=== PATIENT | male | born 1955 | race Caucasian/White ===

== ENCOUNTER 2022-04-22 03:35 | Outpatient (CLI) | payer MEDICARE, BC, SELFPAY | END 2022-04-22 03:36 | disposition home or self-care (01) | LOC: AMB 04-26 21:21 | PROVIDERS: PCP Physician Assistant Medical; Visit Provider Family Medicine | DX: R41.82 Altered mental status, unspecified (principal); E86.0 Dehydration | CPT/HCPCS: A0425; A0427 ==

== ENCOUNTER 2022-04-22 04:01 | Emergency (ER) | payer MEDICARE, BC, SELFPAY ==
[2022-04-22 04:17] VITALS: BP 139/68; PULSE 90; RESP 20; TEMP 36.6; O2SAT 95; BMI 40.9
--- NOTE | 2022-04-22 04:23 | ED_ITS ---
HPI - General Adult General Chief complaint: Syncope/Fainted Stated complaint: Syncope Time Seen by Provider: 04/22/22 04:23 History of Present Illness HPI narrative: Patient is a 67-year-old male who is sitting up watching TV at 3:30 a.m. in the morning with his when he began staring blankly. She had difficulty arousing him and called paramedics. By the time he arrives in the hospital he is awake and alert. He is a dialysis patient who has been somewhat dehydrated. He has had no fevers or chills. He has also chronic pain patient who uses oxycodone multiple times a day for hip pain. There has been no recent fall or head injury. He offers no other concerns. He was not hypoglycemic. Related Data Home Medications Medication Instructions Recorded Confirmed acetaminophen 650 mg mg PO 04/22/22 tablet,extended release aspirin 81 mg tablet,delayed mg 04/22/22 release (Adult Low Dose Aspirin) clopidogrel 75 mg tablet mg 04/22/22 famotidine 40 mg tablet mg 04/22/22 insulin glargine 100 unit/mL (3 40 unit SUBCUT DAILY 04/22/22 04/22/22 mL) subcutaneous pen (Lantus Solostar U-100 Insulin) insulin lispro 100 unit/mL SUBCUT 04/22/22 subcutaneous pen (Humalog KwikPen (U-100) Insulin) methyl salicylate 15 %-menthol 10 1 applic TOPICAL TID 04/22/22 04/22/22 % topical cream nitroglycerin 0.4 mg sublingual mg 04/22/22 tablet ondansetron HCl 4 mg tablet mg 04/22/22 oxycodone 5 mg tablet mg 04/22/22 polyethylene glycol 3350 17 g 04/22/22 gram/dose oral powder rosuvastatin 40 mg tablet mg 04/22/22 sennosides 8.6 mg-docusate sodium 1 tab-cap PO BID 04/22/22 04/22/22 50 mg tablet (Senokot-S) tamsulosin 0.4 mg capsule mg PO 04/22/22 torsemide 20 mg tablet mg 04/22/22 Allergies Allergy/AdvReac Type Severity Reaction Status Date / Time diphenhydramine Allergy Intermediate Hives Verified 04/22/22 04:28 hydromorphone Allergy Intermediate Vomiting Verified 04/22/22 04:28 hydroxyzine Allergy Intermediate Hives Verified 04/22/22 04:28 pravastatin Allergy Intermediate myalgia Verified 04/22/22 04:28 atorvastatin Allergy Mild myalgia Verified 04/22/22 04:28 ciprofloxacin Allergy Mild itching Verified 04/22/22 04:28 gabapentin Allergy Mild Anxiety Verified 04/22/22 04:28 latex Allergy Mild itching Verified 04/22/22 04:28 Sulfa (Sulfonamide Allergy Mild Rash Verified 04/22/22 04:28 Antibiotics) [facility] Medical History (Updated 04/27/22 @ 06:27 by Isauro Carlson MD) Benign non-nodular prostatic hyperplasia with lower urinary tract symptoms Bilateral hip joint arthritis Bilateral primary osteoarthritis of hip BMI 45.0-49.9, adult Central sleep apnea Chronic pain syndrome Chronic, continuous use of opioids Coronary artery disease Coronary artery disease involving [place] coronary artery of [place] heart without angina pectoris DDD (degenerative disc disease), lumbar Essential hypertension GERD (gastroesophageal reflux disease) Hemorrhage anterior chamber eye Lymphedema NSTEMI (non-ST elevated myocardial infarction) PETER (obstructive sleep apnea) Pain medication agreement broken Peripheral edema Stasis ulcer of left lower extremity Stasis ulcer of right lower extremity 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 No significant orthostatic change in his blood pressure or pulse. HEENT: Conjunctiva clear. Tympanic membranes are pearly white bilaterally. Posterior pharynx is clear without erythema or exudate. Neck is supple without adenopathy, thyromegaly, carotid bruit. Lungs: Clear to auscultation in all tucker. No wheezes, rales, rhonchi. Heart: Regular rate and rhythm without murmur. Abdomen: Soft and nontender. No guarding, rigidity, rebound. Bowel sounds are normal. No palpable masses. Extremities: No cyanosis or edema. Good distal pulses. Skin: He has some healing lower extremity wounds. Neurologic: Awake, alert, fully oriented. Neurologic exam is nonfocal. Const: Vital Signs, click to edit/add: Vital Signs - 24 hr 04/22/22 04:17 Temperature 97.9 F Pulse Rate [Left P ulse Oximeter] 90 Respiratory Rate 20 Blood Pressure [Ri ght Upper Arm] 139/68 Pulse Oximetry 95 Course Course Hospital Course: Patient was seen and examined and labs were ordered. Reevaluation(s) Reevaluation #1: Patient and his are reassured by his nearly a normal labs. He is comfortable returning home. Vital Signs Vital signs: Initial Vital Signs Temperature 97.9 F 04/22/22 04:17 Temperature Source Temporal Artery Scan 04/22/22 04:17 Pulse Rate 90 04/22/22 04:17 Pulse Rhythm 04/22/22 04:17 Respiratory Rate 20 04/22/22 04:17 Blood Pressure 139/68 04/22/22 04:17 Blood Pressure Mean 91 04/22/22 04:17 Blood Pressure Position Semi-Fowlers 04/22/22 04:17 Pulse Oximetry 95 04/22/22 04:17 Oxygen Delivery Method 04/22/22 04:17 Vital Signs Temperature 97.9 F 04/22/22 04:17 Pulse Rate 90 04/22/22 04:17 Respiratory Rate 20 04/22/22 04:17 Blood Pressure 139/68 04/22/22 04:17 Pulse Oximetry 95 04/22/22 04:17 Temperature 97.9 F 04/22/22 04:17 Pulse Rate 97 04/22/22 05:29 Respiratory Rate 16 04/22/22 05:15 Blood Pressure 107/36 L 04/22/22 05:29 Pulse Oximetry 98 04/22/22 05:15 Medical Decision Making Lab Data Labs: Lab Results 04/22/22 04/22/22 Range/Units 05:25 05:25 WBC 10.72 (4.50-11.00) K/uL RBC 3.89 L (4.30-5.90) m/uL Hgb 11.1 L (13.5-17.5) gm/dL Hct 35.8 L (37.0-53.0) % MCV 92 (80-100) fL MCH 29 (26-34) pg MCHC 31 L (32-36) gm/dL RDW Coeff of [place] 13.4 (11.5-15.5) % Plt Count 296 (140-440) K/uL Neut % (Auto) 79.0 H (42.0-72.0) % Lymph % (Auto) 8.8 L (20-44) % [place] % (Auto) 9.6 (0.0-11.0) % Eos % (Auto) 1.9 (0.0-7.0) % Baso % (Auto) 0.5 (0.0-3.0) % Neut # (Auto) 8.50 H (1.7-7.0) K/uL Lymph # (Auto) 0.90 (0.90-2.90) K/uL [place] # (Auto) 1.00 H (0.00-0.90) K/UL Eos # (Auto) 0.20 (0.00-0.50) K/uL Baso # (Auto) 0.05 (0.00-0.30) K/uL Abs Immat Gran (auto) 0.02 (0.00-0.30) K/uL Sodium 137 (135-149) mmol/L Potassium 3.8 (3.6-5.1) mmol/L Chloride 96 (96-114) mmol/L Carbon Dioxide 33 H (20-32) mmol/L BUN 33 H (7-30) mg/dL Creatinine 2.0 H (0.5-1.5) mg/dL Estimated Creat Clear 37.01 Estimated GFR 36 ml/min Glucose 174 H (60-115) mg/dL Calcium 9.0 (8.4-10.6) mg/dL Discharge Plan Discharge Clinical Impression: Syncope Patient Disposition: Home, Self-Care Condition: Improved Additional Instructions: Decreased torsemide to two pills in the morning and stop the evening dose for now. Monitor for increased leg swelling. If you are able to cut back on your oxycodone a little that may help. Make sure getting enough to drink. Follow-up in the clinic for recheck in 3-5 days. Prescriptions: No Action torsemide 20 mg tablet 0RF ondansetron HCl 4 mg tablet 0RF Label Comments: Place 1 tablet on the tongue 2 times daily if needed for N/V famotidine 40 mg tablet 0RF clopidogrel 75 mg tablet 0RF aspirin [Adult Low Dose Aspirin] 81 mg tablet,delayed release (DR/EC) 0RF Label Comments: Take 1 tablet by mouth once daily with a meal acetaminophen 650 mg tablet extended release PO 0RF Label Comments: Take 1 tablet by mouth three times a day + 2 PRN doses daily tamsulosin 0.4 mg capsule PO 0RF nitroglycerin 0.4 mg tablet, sublingual 0RF Label Comments: Place 1 tablet under the tongue every 5 minutes if needed for Chest Pain polyethylene glycol 3350 17 gram/dose powder 0RF Label Comments: MIX 1 SCOOP (17 G) IN LIQUID THEN TAKE BY MOUTH ONCE DAILY. oxycodone 5 mg tablet 0RF insulin lispro [Humalog KwikPen Insulin] 100 unit/mL insulin pen SUBCUT 0RF rosuvastatin 40 mg tablet 0RF sennosides-docusate sodium [Senokot-S] 8.6-50 mg tablet 1 tab-cap PO BID 0RF insulin glargine [Lantus Solostar U-100 Insulin] 100 unit/mL (3 mL) insulin pen 40 unit subcut DAILY 0RF methyl salicylate-menthol 15-10 % cream 1 applic topical TID 0RF Follow Up/Referrals: Nuzhat Salinas PA-C [Primary Care Provider] - Stand Alone [facility]
[2022-04-22 05:15] VITALS: PULSE 96; RESP 16; O2SAT 98
[2022-04-22 05:29] VITALS: BP 107/36; BP 119/66; BP 122/61; PULSE 93; PULSE 95; PULSE 97; PULSE 98
[2022-04-22 05:30] LABS: Basophils Absolute Auto 0.05 K/uL (0.00-0.30); Basophils Percent Auto 0.5 % (0.0-3.0); Eosinophils Percent Auto 1.9 % (0.0-7.0); Hematocrit 35.8 % (37.0-53.0); Hemoglobin* 11.1 gm/dL (13.5-17.5); Immature Granulocytes Abs Auto 0.02 K/uL (0.00-0.30); Lymphocytes Percent Auto 8.8 % (20-44); Mean Corpuscular HGB Conc 31 gm/dL (32-36); Mean Corpuscular Hemoglobin 29 pg (26-34); Mean Corpuscular Volume 92 fL (80-100); Monocytes Percent Auto 9.6 % (0.0-11.0); Platelet Count* 296 K/uL (140-440); RDW Coefficient of Variation % 13.4 % (11.5-15.5); Red Blood Count 3.89 m/uL (4.30-5.90); White Blood Count* 10.72 K/uL (4.50-11.00)
[2022-04-22 05:31] LABS: Slide Review Reflex No
[2022-04-22 05:42] LABS: Chloride* 96 mmol/L (96-114); Potassium* 3.8 mmol/L (3.6-5.1); Sodium* 137 mmol/L (135-149)
[2022-04-22 05:45] LABS: Blood Urea Nitrogen* 33 mg/dL (7-30); Carbon Dioxide* 33 mmol/L (20-32); Est. Creatinine Clearance* 37.01; Estimated Glomerular Filt Rate 36 ml/min; Glucose* 174 mg/dL (60-115)
--- NOTE | 2022-04-22 05:46 | ED.NURSE ---
Daughter at bedside
== END 2022-04-22 07:14 | disposition home or self-care (01) ==
PROVIDERS: Emergency Provider Family Medicine; PCP Physician Assistant Medical
DX: R55 Syncope and collapse (principal)
CPT/HCPCS: 36415; 80048; 85025; 99282; 99283

== ENCOUNTER 2022-10-26 14:49 | Emergency (ER) | payer MEDICARE, BC, SELFPAY ==
[2022-10-26 14:58] VITALS: BP 148/79; PULSE 83; RESP 16; TEMP 36.4; O2SAT 99; BMI 42.3
--- NOTE | 2022-10-26 15:24 | ED_ITS ---
HPI - General Adult General Time Seen by Provider: 15:24 Date Seen: 10/26/22 Chief complaint: Extremity Pain/Injury, Lower Stated complaint: L leg injury, bleeding on blood thinners Time Seen by Provider: 10/26/22 14:50 Source: patient Mode of arrival: ambulatory Limitations: no limitations History of Present Illness HPI narrative: Patient is a 67 year white male, he has history chronic stasis changes diabetes. He cut his left anterior boyer on the door. He thinks is up-to-date on tetanus we will confirm that. He has had a good amount of bleeding he is on Plavix. No other complaints. Related Data Home Medications Medication Instructions Recorded Confirmed aspirin 81 mg tablet,delayed mg 04/22/22 release (Adult Low Dose Aspirin) clopidogrel 75 mg tablet mg 04/22/22 famotidine 40 mg tablet mg 04/22/22 insulin glargine 100 unit/mL (3 40 unit subcut DAILY 04/22/22 04/22/22 mL) subcutaneous pen (Lantus Solostar U-100 Insulin) insulin lispro 100 unit/mL subcut 04/22/22 subcutaneous pen (Humalog KwikPen (U-100) Insulin) methyl salicylate 15 %-menthol 10 1 applic topical TID 04/22/22 04/22/22 % topical cream nitroglycerin 0.4 mg sublingual mg 04/22/22 tablet ondansetron HCl 4 mg tablet mg 04/22/22 oxycodone 5 mg tablet mg 04/22/22 polyethylene glycol 3350 17 g 04/22/22 gram/dose oral powder rosuvastatin 40 mg tablet mg 04/22/22 sennosides 8.6 mg-docusate sodium 1 tab-cap PO BID 04/22/22 04/22/22 50 mg tablet (Senokot-S) tamsulosin 0.4 mg capsule mg PO 04/22/22 torsemide 20 mg tablet mg 04/22/22 Allergies Allergy/AdvReac Type Severity Reaction Status Date / Time diphenhydramine Allergy Intermediate Hives Verified 04/22/22 04:28 hydromorphone Allergy Intermediate Vomiting Verified 04/22/22 04:28 hydroxyzine Allergy Intermediate Hives Verified 04/22/22 04:28 pravastatin Allergy Intermediate myalgia Verified 04/22/22 04:28 atorvastatin Allergy Mild myalgia Verified 04/22/22 04:28 ciprofloxacin Allergy Mild itching Verified 04/22/22 04:28 gabapentin Allergy Mild Anxiety Verified 04/22/22 04:28 latex Allergy Mild itching Verified 04/22/22 04:28 Sulfa (Sulfonamide Allergy Mild Rash Verified 04/22/22 04:28 Antibiotics) Review of Systems Status of ROS: Reports: 6 or more systems reviewed and unremarkable except as noted in History and below [facility] Medical History Benign non-nodular prostatic hyperplasia with lower urinary tract symptoms Bilateral hip joint arthritis Bilateral primary osteoarthritis of hip BMI 45.0-49.9, adult Central sleep apnea Chronic pain syndrome Chronic, continuous use of opioids Coronary artery disease Coronary artery disease involving [place] coronary artery of [place] heart without angina pectoris DDD (degenerative disc disease), lumbar Essential hypertension GERD (gastroesophageal reflux disease) Hemorrhage anterior chamber eye Lymphedema NSTEMI (non-ST elevated myocardial infarction) PETER (obstructive sleep apnea) Pain medication agreement broken Peripheral edema Stasis ulcer of left lower extremity Stasis ulcer of right lower extremity 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, with long-term current use of insulin Vitamin D deficiency Surgical History Hx of coronary artery bypass graft Social History Smoking Status: Unknown if ever smoked Do you use any of these nicotine containing products: None Second hand tobacco smoke exposure: No How often do you have a drink containing alcohol: monthly or less How often do you have six or more drinks on one occasion: Never AUDIT-C Alcohol total score: 1 Non-prescribed substance use: denies use service: No Exam Narrative: Exam Narrative: Objective: Vital signs show slightly elevated blood pressure His left leg shows chronic stasis changes fairly friable skin and good amount of edema there is a 3 cm cut vertically through the anterior boyer does not appear deep but does appear to gape. After sterile scrub with Shur-Clens the wound was injected with 1% xylocaine without epinephrine and closed with 3-0 simple opted Ethilon sutures good skin edge approximation good hemostasis patient did have a slight amount of oozing after repair even went through that stitch base of the stitches but will put a little pressure on that and observe for period of time Telfa, gauze, a slight soft wrap check on his tetanus status Const: Vital Signs, click to edit/add: Vital Signs - 24 hr 10/26/22 14:58 Temperature 97.6 F Pulse Rate [Right Pulse Oximeter] 83 Respiratory Rate 16 Blood Pressure [Ri ght Upper Arm] 148/79 H Pulse Oximetry 99 Oxygen Delivery Me thod Room Air Course Vital Signs Vital signs: Initial Vital Signs Temperature 97.6 F 10/26/22 14:58 Temperature Source Temporal Artery Scan 10/26/22 14:58 Pulse Rate 83 10/26/22 14:58 Pulse Rhythm 10/26/22 14:58 Respiratory Rate 16 10/26/22 14:58 Blood Pressure 148/79 H 10/26/22 14:58 Blood Pressure Mean 102 10/26/22 14:58 Blood Pressure Position Sitting 10/26/22 14:58 Pulse Oximetry 99 10/26/22 14:58 Oxygen Delivery Method 10/26/22 14:58 Vital Signs Temperature 97.6 F 10/26/22 14:58 Pulse Rate 83 10/26/22 14:58 Respiratory Rate 16 10/26/22 14:58 Blood Pressure 148/79 H 10/26/22 14:58 Pulse Oximetry 99 10/26/22 14:58 Oxygen Delivery Method 10/26/22 14:58 Temperature 97.6 F 10/26/22 14:58 Pulse Rate 83 10/26/22 14:58 Respiratory Rate 16 10/26/22 14:58 Blood Pressure 148/79 H 10/26/22 14:58 Pulse Oximetry 99 10/26/22 14:58 Oxygen Delivery Method 10/26/22 14:58 Medical Decision Making [facility] Narrative Medical decision making narrative: Procedure: After sterile scrub 1% xylocaine without epinephrine used for a injection of the wound and it was closed with 3-0 Ethilon sutures. Suture removal in 7 days, will check on tetanus status. Elevation, light activity, keep dry for 24 hours. Discharge Plan Discharge Clinical Impression: Laceration Patient Disposition: Home w/ Parent or Adult Condition: Improved Additional Instructions: Suture removal in 7 days, keep dressing on and keep dry for 24 hours. Watch for redness infection, updated tetanus given. Return if problems or concerns. Otherwise suture removal in 7 days in the clinic. Activity Level: Light activity Discharge Diet: Diabetic Prescriptions: No Action torsemide 20 mg tablet ondansetron HCl 4 mg tablet Label Comments: Place 1 tablet on the tongue 2 times daily if needed for N/V famotidine 40 mg tablet clopidogrel 75 mg tablet aspirin [Adult Low Dose Aspirin] 81 mg tablet,delayed release (DR/EC) Label Comments: Take 1 tablet by mouth once daily with a meal tamsulosin 0.4 mg capsule PO nitroglycerin 0.4 mg tablet, sublingual Label Comments: Place 1 tablet under the tongue every 5 minutes if needed for Chest Pain polyethylene glycol 3350 17 gram/dose powder Label Comments: MIX 1 SCOOP (17 G) IN LIQUID THEN TAKE BY MOUTH ONCE DAILY. oxycodone 5 mg tablet insulin lispro [Humalog KwikPen Insulin] 100 unit/mL insulin pen SUBCUT rosuvastatin 40 mg tablet sennosides-docusate sodium [Senokot-S] 8.6-50 mg tablet 1 tab-cap PO BID insulin glargine [Lantus Solostar U-100 Insulin] 100 unit/mL (3 mL) insulin pen 40 unit subcut DAILY methyl salicylate-menthol 15-10 % cream 1 applic topical TID Follow Up/Referrals: Nuzhat Salinas PAMacieC [Primary Care Provider] - Stand Alone Forms: [employer] Info Instructions Discharge Comment: took pt to his daughter's car with present. helped pt transfer into his daughter's car with ease.
[2022-10-26] MEDS: TETANUS/DIPHTH/PERTUSSIS 0.5 ML SYRINGE IM (15:43)
--- OUTSIDE RECORDS SUMMARY | 2022-10-26 15:45 | XMS_ITS | Continuity of Care Document ---
:1955 Author Organization [facility] Address [address] [place] [address] Phone Care Team Providers Name Role Phone Shelton Rosales Unavailable Unavailable Allergies, Adverse Reactions, Alerts Substance Reaction Status Criticality pregabalin Active No Information gabapentin Active No Information latex Active No Information Medications Medication Instructions Dosage Effective Dates Status Comment s (start - stop) Xtampza ER 9 mg take 1 capsule by 9 MG - Active may fill today capsule sprinkle oral route every 12 hours oxycodone 5 mg Take one tablet - Active ma y fill today tablet twice daily as needed for chronic pain; max 2/day Vazalore 81 mg take 1 capsule by 81 MG - Active capsule oral route every day Plavix 75 mg take 1 tablet by 75 MG - Active tablet oral route every day Pepcid 20 mg take 1 tablet by 20 MG - Active tablet oral route 2 times every day torsemide 20 mg take 1 tablet by 20 MG - Active tablet oral route every day Xtampza ER 9 mg take 1 capsule by 9 MG - No Longer may fill today capsule sprinkle oral route every 12 Active hours oxycodone 5 mg Take one tablet - No Longer ma y fill today tablet twice daily as Active needed for chronic pain; max 2/day Procedures Procedure Date Foll-up eval q3mo opiod tx OFFICE VISIT, EST TELEMEDICINE Foll-up eval q3mo opiod tx OFFICE VISIT, EST TELEMEDICINE Drug Urine Toxology With Chromatography Drug test def 8-14 classes Foll-up eval q3mo opiod tx OFFICE/OUTPATIENT VISIT, EST Foll-up eval q3mo opiod tx OFFICE VISIT, EST TELEMEDICINE Drug test def 8-14 classes Drug Urine Toxology With Chromatography Foll-up eval q3mo opiod tx PT-FOCUSED HLTH RISK ASSMT OFFICE/OUTPATIENT VISIT, NEW Advance Directives Directive Yes / No Effective Date File Name No Information Encounters Encounter Practice Location Reason(s) Diagnoses Date Provider Provide rs Description For Visit Copied on Encounter OFFICE VISIT, [facility] bilateral Chronic pain Page Referring [facility] hip pain syndromePressure [place]. Pr ovider: TELEMEDICINE Pain [place] (chief ulcer of right [address] [facility], complaint) heel, unspecified [address] , [address] stageBilateral [address] [place], [place], primary 100, [facility], osteoarthritis of [place] , [place] , [place], [place], [address] . [id number] primary [id number] tel:28 , [place] osteoarthritis, , [place]. [id number] tel: left kneePrimary tel: [phone] osteoarthritis, [phone] right shoulderPrimary osteoarthritis, left shoulderLong term (current) use of opiate analgesic OFFICE VISIT, [facility] bilateral Chronic pain Page Referring [facility] hip pain syndromePressure [place]. Pr ovider: TELEMEDICINE Pain [place] (chief ulcer of right 2 [address] [facility], complaint) heel, unspecified [address] , [address] stageBilateral [address], [place], primary 100, [place], osteoarthritis of [place] , [place] , [place], [place], [address] . [id number] primary [id number] tel:28 , [place] osteoarthritis, , [place]. [id number] tel: left kneePrimary tel:+ [phone] osteoarthritis, [phone] right shoulderPrimary osteoarthritis, left shoulderLong term (current) use of opiate analgesic [facility] No Information Page Refer [facility] 0- [place]. Provider: Pain [place] [address] [facility], [address] [place], [address], [address], [place], [place] [address] [place], [place], [place], [place] [id number], , [place] , [place]. [place], tel: tel:+ [place], [phone]. [phone] tel: [phone] OFFICE/OUTPAT [facility] bilateral Chronic pain Page Referring IENT VISIT, [facility] hip pain syndromePressure 0 [place] . Provider: EST [facility] [place] (chief ulcer of right [address] [facility], complaint) heel, unspecified [address] [place], [address] stageBilateral [address], primary 100, [place], osteoarthritis of [place] [address] [place], hipUnilateral [place], [place], [place] [phone] primary [id number], , [place] osteoarthritis, , [place]. [facility], tel: [place] kneePrimary tel: [place], [phone]. [phone] osteoarthritis, [phone] tel: right [phone] shoulderPrimary osteoarthritis, left shoulderLong term (current) use of opiate analgesicEncounte r for therapeutic drug level monitoring OFFICE VISIT, [facility] bilateral Chronic pain Jul- Van Referring [facility] hip pain syndromePressure [place] P rovider: TELEMEDICINE Pain [place] (chief ulcer of right [address] [facility], complaint) heel, unspecified [address] , [address], [place], [place], primary [place], osteoarthritis of [place], [place], , [place], [place], hipUnilateral [id number]. [id number] primary , [place]. tel:[phone] , [place] osteoarthritis, tel:+ [phone] tel:+ left kneePrimary [phone] osteoarthritis, right shoulderPrimary osteoarthritis, left shoulderLong term (current) use of opiate analgesic [facility] No Information Sep-2 Page Refer ring [facility] [place]. Provider: [facility] [place] [address] [facility], [address] [place], [address], 100, [place], [place] [address] [place], e, [place], [place] [id number], , [place] , [place]. [place], tel:+ tel:+ [place], [phone]. [phone] tel:+ [phone] OFFICE/OUTPAT [facility] bilateral Chronic pain Sep-2 Page Referring IENT VISIT, [facility] hip pain syndromeBilateral Vlad garcia Provider: NEW Pain [place] (chief primary [address] [facility], complaint) osteoarthritis of [address] Curtis [place], [address] [place] hipEncounter for [address] [place], screening for 100, [place], other [place] [address] [place], disorderEncounter e, [place], Hemanth son [phone] for therapeutic [id number], , [place] drug level , [place]. [place], tel:+ monitoringPrimary tel:+ [place] , [phone]. [phone] osteoarthritis, [phone] tel:+ left [phone] shoulderPrimary osteoarthritis, right shoulderLong term (current) use of opiate analgesicPressure ulcer of right heel, unspecified stageUnilateral primary osteoarthritis, left knee Family History Family Member Type Diagnosis Age At Onset No Information Payers Payer name Insurance type Covered constitution party ID Authorization(s ) [facility] MedicareComplete Replacement 16 [id number] [employer] Medicaid BL [id number] Social History Type Description Quantity Date Captured Comments Alcohol Use Details Unknown Caffeine Use Details Unknown Tobacco Use Status No Information Smoking Status No Information Sex Male Chief Complaint And Reason For Visit From encounter dated '10/06/2022 10:35'. bilateral hip pain (chief complaint). Description: Severity level is moderate. Duration chronic. The problem is worsening. It occurs constantly. Location of pain is bilateral left knee. Pertinent negatives include fever. Reason For Referral Reason For Referral No Information Plan Of Treatment Date Type Action Status Goal Height. Due on due Goal Update Social History. Due on due Goal Lipid panel. Due on due Goal Medication Reconciliation. Due o n due Goal AST (SGOT). Due on d ue Goal Creatinine. Due on d ue Goal OARS. Due on due Goal STRATEGIC ACCOUNT EXECUTIVE Scanned. Due on due Goal ALT (SGPT). Due on d ue Goal Zoster vaccine (1st). Due on Oct due Goal PHQ-9. Due on due Goal Review Allergy List. Due on due Goal FIT. Due on due Goal FIT-DNA. Due on due Goal Hepatitis C screening. Due on due Goal Tobacco Use. Due on due Goal CT-Colonography. Due on 023 due Goal Weight. Due on due Goal Unhealthy drug use screening. Du e on due Goal Order Annual PT. Due on 023 due Goal CERTIFIED ORTHOTIST PRACTICE MANAGER Paperwork. Due on due Goal UDT. Due on due Goal Medication Reconciliation. Due o n due Goal Update Social History. Due on due Goal Lipid panel. Due on due Goal Review Allergy List. Due on due Goal Unhealthy drug use screening. Du e on due Goal CT-Colonography. Due on due Goal Tobacco Use. Due on due Goal Zoster vaccine (1st). Due on Sep due Goal FIT. Due on due Goal PHQ-9. Due on due Goal Hepatitis C screening. Due on due Goal Weight. Due on due Goal Height. Due on due Goal FIT-DNA. Due on due Goal ALT (SGPT). Due on d ue Goal Creatinine. Due on d ue Goal OARS. Due on due Goal AST (SGOT). Due on d ue Goal STRATEGIC ACCOUNT EXECUTIVE Scanned. Due on due Goal Order Annual PT. Due on due Goal CERTIFIED ORTHOTIST PRACTICE MANAGER Paperwork. Due on due Goal UDT. Due on due Goal AST (SGOT). Due on d ue Goal FIT. Due on due Goal Order Annual PT. Due on due Goal OARS. Due on due Goal ALT (SGPT). Due on d ue Goal CERTIFIED ORTHOTIST PRACTICE MANAGER Paperwork. Due on due Goal STRATEGIC ACCOUNT EXECUTIVE Scanned. Due on due Goal UDT. Due on due Goal Creatinine. Due on d ue Goal Update Social History. Due on No due Goal Review Allergy List. Due on due Goal FIT-DNA. Due on due Goal Height. Due on due Goal PHQ-9. Due on due Goal Medication Reconciliation. Due o n due Goal Tobacco Use. Due on due Goal CT-Colonography. Due on due Goal Lipid panel. Due on due Goal Zoster vaccine (1st). Due on Aug due Goal Weight. Due on due Goal Hepatitis C screening. Due on No due Goal Unhealthy drug use screening. Du e on due Goal CT-Colonography. Due on due Goal Review Allergy List. Due on due Goal Unhealthy drug use screening. Du e on due Goal Tobacco Use. Due on due Goal Hepatitis C screening. Due on Oc due Goal Medication Reconciliation. Due o n due Goal PHQ-9. Due on due Goal Height. Due on due Goal Weight. Due on due Goal Zoster vaccine (1st). Due on Jul due Goal FIT-DNA. Due on due Goal FIT. Due on due Goal Update Social History. Due on Oc due Goal Lipid panel. Due on due Goal Order Annual PT. Due on 022 due Goal ALT (SGPT). Due on d ue Goal AST (SGOT). Due on d ue Goal Creatinine. Due on d ue Goal OARS. Due on due Goal CERTIFIED ORTHOTIST PRACTICE MANAGER Paperwork. Due on due Goal UDT. Due on due Goal STRATEGIC ACCOUNT EXECUTIVE Scanned. Due on due Goal PHQ-9. Due on due Goal Order Annual PT. Due on 022 due Goal Creatinine. Due on d ue Goal UDT. Due on due Goal STRATEGIC ACCOUNT EXECUTIVE Scanned. Due on due Goal CERTIFIED ORTHOTIST PRACTICE MANAGER Paperwork. Due on due Goal OARS. Due on due Goal AST (SGOT). Due on d ue Goal ALT (SGPT). Due on d ue Goal Weight. Due on due Goal Medication Reconciliation. Due o n due Goal Lipid panel. Due on due Goal Review Allergy List. Due on due Goal FIT-DNA. Due on due Goal CT-Colonography. Due on due Goal Height. Due on due Goal Zoster vaccine (). Due on Jun due Goal Unhealthy drug use screening. Du e on due Goal Tobacco Use. Due on due Goal FIT. Due on due Goal Update Social History. Due on due Goal Hepatitis C screening. Due on due Goal Weight. Due on due Goal Medication Reconciliation. Due o n due Goal Lipid panel. Due on due Goal Review Allergy List. Due on due Goal FIT-DNA. Due on due Goal CT-Colonography. Due on due Goal Height. Due on due Goal Zoster vaccine (). Due on Jun due Goal Unhealthy drug use screening. Du e on due Goal Tobacco Use. Due on due Goal FIT. Due on due Goal Update Social History. Due on Se due Goal Hepatitis C screening. Due on Se due Goal PHQ-9. Due on due Appointment Srinivasa Womack BOOKED History Of Present Illness Encounter Date Complaint History Of Present I llness bilateral hip pain Severity level is mo derate. Duration chronic. The problem is worsening . It occurs constantly. Location of pain is bilateral left knee. Pertinent negatives include fe paulina. Comments: Andres pacheco sents for a virtual follow up and medication refil l. Patient c/o chronic bilateral hip pain. Pain has been worse since last visit. Notes he has had increased pain in his left knee and left hip.Sc heduled for left BRAND injection on 10/08/[address] Pako trammell. Notes he is concerned with the icy roads and in quires about rescheduling it for next week. He is looking forward to the procedure. Medicatio n provides 50% relief and allows for increased functionality per patient intake. Denies side effects from current medication regimen. No other co ncerns today. bilateral hip pain Severity level is mo derate. Duration chronic. The problem is showing n o change. It occurs constantly. Location of pain is bilateral. Comments: Andres pacheco sents for a virtual follow up and medication refil l. Patient c/o chronic bilateral hip pain. Pain has been stable since last visit. Left hip join t injection ordered on 08/13/2022. He would like to schedule following interventions for hi s left knee. Left hyaluronic acid injection sched uled on 10/08/2022. He is looking forward to t he procedure. Medication provides 25% relief and allows for increased functionality per pa tient intake. Denies side effects from current medication regimen. No other concerns today. bilateral hip pain Severity level is mo derate. Duration chronic. The problem is showing n o change. It occurs constantly. Location of pain is bilateral. The client describes the pain as an ache and stabbing. Symptom is aggravated by liftin g weight, standing, walking, movement and stairs. Relieving factors include ice and rest. Comments: Andres pacheco sents for a follow up and medications refill. Patient c/o BL hip pain and left knee pain r/t O A. Pain has been stable since he was last seen. Re ports previous cortisone injections have prov ided a week of relief.Xtampza has been providing m ore consistent relief than oxycodone. Has been taking about #1-2 Oxycodone per day to supplement. R eports current medication regimen provides 30% pain relief. Denies side effects. No other co ncerns today. Comments: Andres junior sents for a follow up after his initial consult and medications refill. Patient c/o BL hip pain and left knee pain r/t OA. Pain has been stable since he was last seen.Xtampza has been providing more consi stent relief than oxycodone. Has been taking abou t #1-2 Oxycodone per day to supplement. Reports current medication regimen provides 30% pain re lief. Denies side effects. No other concerns today . bilateral hip pain Severity level is mo derate. Duration chronic. The problem is showing n o change. Location of pain is bilateral. Pertinent negatives include fever. Comments: Srinivasa is a 67 y/o male who presents in-clinic today for initial consultation in the setting of chronic B L hips (L>R) and L knee pain. He is accompanied by his daughter today who also contributes to his d iscussion of care. Referred by POOJA Moore from [facility]. Shares the pain gradually began 10 years ago. He states pain is aggravated with g eneral movement and relieved with medications and rest. He also reports an ongoing ulcer presen t at the back of his R heel and states he has establ ished care with a wound doctor to treat the issue. Since he is diabetic, the wound is taking time to fu lly heal. Pain averages 10/10 this month. Complete d PT at [facility] with minimal relief. Have tried cortisone injections for the BL hips. Was adv ised against pursuing additional injection s for the hips as there is a possibly it might di ssolve the joints and cause him further pain. He not es the last time he received an injection, it was ex tremely painful. Believes the needle might have hi t the bones in his hips. Also notes the injections causes his blood pressure Currently managed on Oxycodone 5mg with moderate benefit. He states h esau is able to feel the effects of the medications a bout an hour after taking it, which makes his pain manageable, but he finds it wears off too quickl y. Willing to try a longer acting medication. P faith is interested in medication managemen t from [facility]. No other concerns today. bilateral hip pain Severity level is se janel. Duration chronic. The problem is worsening . It occurs constantly. Location of pain is bilateral knees. The client describes the pain a s dull and sharp. Symptom is aggravated by active movement, climbing stairs, descending stairs, l ifting weight, standing, changing positions, walking, twisting, running and housework. Relieving factors include rest and medications. Pertine nt negatives include fever. Functional Status Date Functional Assessment No Information Instructions Date Instruction Additional Informati on No Information Assessments Type Assessment Date assessment Chronic pain syndrome impression Srinivasa is a 67 y/o male who presents with chronic BL hips (L>R) and BL knee pain. Stable this month. Has completed PT at [facility] with minimal relief assessment Pressure ulcer of right heel, unspecifie d stage impression Presence of pressure ulcer at the back o f the R heel, about the size of a quarter currently.Patient has established care with wound doctor in order to treat the issue. As he is diabetic, the wound is taking time to fu lly heal assessment Bilateral primary osteoarthritis of hip impression Pain in BL hips (L>R), worse today. Will eventually need hip replacement, but would like to hold off as long as possible. Established with Dr. Maldonado.Has received se veral cortisone injections with benefit and would like t o repeat assessment Unilateral primary osteoarthritis, left knee impression Pain in L knee, worse today.Left Knee XR on 06/25/22:1. Mild tricompartmental osteoarthritic changes of the left knee.2. No acute bony or soft tissue abnormalities are noted assessment Primary osteoarthritis, right shoulder J impression Pain in BL shoulders. Stable.Have receiv ed GH Injections for BL shoulders at [facility] with signi ficant relief assessment Primary osteoarthritis, left shoulder Ja impression Pain in BL shoulders. Stable.Have receiv ed GH Injections for BL shoulders at [facility] with signi ficant relief assessment USP (current) use of opiate analge sic impression The medication relieves at least 80% of the pain, does not cause significant side effects, and incr eases the patient's daily activity level. MME is 45mg/day. P faith has been managing medications appropriately, and is not confused or oversedated during our office visit. UDT results reviewed and are consistent with current medication r egimen. Appropriate to continue with opioid therapy Mental Status Date Cognitive Assessment Normal Orientation Patient Care Teams Name Effective Dates (start - stop) Status M embbia No Information
== END 2022-10-26 16:10 | disposition home or self-care (01) ==
LOC: ED 15:43
PROVIDERS: Emergency Provider Family Medicine; PCP Physician Assistant Medical
DX: S81.812A Laceration without foreign body, left lower leg, initial encounter (principal); W26.9XXA Contact with unspecified sharp object(s), initial encounter
CPT/HCPCS: 12002; 90471; 90715; 99283; 99284

== ENCOUNTER 2023-08-11 20:04 | Outpatient (CLI) | payer MEDICARE, BC, SELFPAY ==
--- OUTSIDE RECORDS SUMMARY | 2023-08-12 07:27 | XMS_ITS | Continuity of Care Document ---
Author Name Unknown Organization [facility] Address [address] [place] [address] Phone Care Team Providers Care Customer Services Manager Name Role Phone Shelton Rosales Unavailable Unavailable Allergies, Adverse Reactions, Alerts Substance Reaction Status Criticality ciprofloxacin Itching Active No Information atorvastatin Active No Information Sulfa (Sulfonamide Antibiotics) Rash Active No Information pravastatin Active No Information hydroxyzine HivesHivesHives Active No Informati on hydromorphone Active No Information diphenhydramine HivesHivesHives Active No Inform ation pregabalin Active No Information gabapentin Active No Information latex Active No Information Medications Medication Instructions Dosage Effective Dates (start - stop) Status Comments Xtampza ER 9 mg capsule sprinkle take 1 capsule by oral route every 12 hours for chronic pain - Active oxycodone 5 mg tablet take 1 tablet three times daily as needed for chronic pain max 3/day - Active May fill today insulin lispro (U-100) 100 unit/mL subcutaneous pen inject by subcutaneous route per prescriber's instructions. Insulin dosing requires individualization . 0.00 - Active LANTUS (unknown strength) Not Available - Active nitroglycerin 0.4 mg/hr transdermal 24 hour patch apply 1 patch by transdermal route every day remove at night for 10-12 hours 1.00 patch - Active Crestor 40 mg tablet take 1 tablet by oral route every bedtime 40 MG - Active Vazalore 81 mg capsule take 1 capsule by oral route every day 81 MG - Active Plavix 75 mg tablet take 1 tablet by oral route every day 75 MG - Active Pepcid 20 mg tablet take 1 tablet by oral route 2 times every day 20 MG - Active torsemide 20 mg tablet take 1 tablet by oral route every day 20 MG - Active oxycodone 5 mg tablet take 1 tablet three times daily as needed for chronic pain max 3/day - No Longer Active May fill today Xtampza ER 9 mg capsule sprinkle take 1 capsule by oral route every 12 hours for chronic pain - No Longer Active Procedures Procedure Date OFFICE/OUTPATIENT VISIT, EST Drug Urine Toxology With Chromatography Drug test def 8-14 classes LT SINGLE-DRAIN/INJECT, JOINT/BURSA NEEDLE LOCALIZATION BY Flouroscopy OFFICE VISIT, EST TELEMEDICINE OFFICE VISIT, EST TELEMEDICINE Drug Urine Toxology With Chromatography Drug test def 8-14 classes OFFICE/OUTPATIENT VISIT, EST LT SINGLE-DRAIN/INJECT, JOINT/BURSA NEEDLE LOCALIZATION BY Flouroscopy OFFICE VISIT, EST TELEMEDICINE OFFICE VISIT, EST TELEMEDICINE Foll-up eval q3mo opiod tx OFFICE/OUTPATIENT VISIT, EST Drug Urine Toxology With Chromatography Drug test def 8-14 classes LT Major Joint Or Bursa Inj With Ultraso und Synvisc LT Major Joint Or Bursa Inj With Ultraso und Synvisc Foll-up eval q3mo opiod tx OFFICE VISIT, [...] Date File Name No Information Encounters Encounter Description Practice Location Reason(s) For Visit Diagnoses Date Provider Providers Copied on Encounter OFFICE/OUTPAT IENT VISIT, EST [facility], [address] [place] [address], [id number] , [place] tel:[phone] [facility] bilateral hip pain (chief complaint) Chronic pain syndromePressure ulcer of right heel, unspecified stageBilateral primary osteoarthritis of hipUnilateral primary osteoarthritis, left kneePrimary osteoarthritis, right shoulderPrimary osteoarthritis, left shoulderLong term (current) use of opiate analgesicEncount er for therapeutic drug level monitoring 3 Kaylee Peoples. [address] [place] [address] 11 [facility] [address], [place], [place], [id number] , [place]. tel:[phone] Referring Provider: Tomasz Garcia [facility] [address] [place] [address], [address]. tel:[phone] [facility], [address] [place], [place], [id number] , [place] tel:[phone] [facility] No Information 3 Kaylee Peoples. [address] [place] [address] [address], [place], [id number] , [place]. tel: [phone] [facility], [address] [place] [address] [place], [id number] , [place] tel: [phone] [facility] Bilateral primary osteoarthritis of hip Jul-2 3 Mikael Tolbert. [address] [place] [address], [id number] , [place]. tel: [phone] Referring Provider: Tomasz Youssef, [address] [place] [address], [id number]. tel:[phone] OFFICE VISIT, EST TELEMEDICINE [facility], [address] [place] [address], [id number] , [place] tel: [phone] [facility] [place] bilateral hip pain (chief complaint) Chronic pain syndromePressure ulcer of right heel, unspecified stageBilateral primary osteoarthritis of hipUnilateral primary osteoarthritis, left kneePrimary osteoarthritis, right shoulderPrimary osteoarthritis, left shoulderLong term (current) use of opiate analgesic Jul-0 3 Kaylee Peoples. [address] [place] [address] [address], [place], [id number] , [place]. tel: [phone] OFFICE VISIT, EST TELEMEDICINE [facility], [address] [place] [address] [place], [id number] , [place] tel: [phone] [facility] [place] bilateral hip pain (chief complaint) Chronic pain syndromePressure ulcer of right heel, unspecified stageBilateral primary osteoarthritis of hipUnilateral primary osteoarthritis, left kneePrimary osteoarthritis, right shoulderPrimary osteoarthritis, left shoulderLong term (current) use of opiate analgesic Sep-0 3 Page Shelton. [address] [place] [address] [address], [place], [id number] , [place]. tel: [phone] [facility], [address] [place] [address] [place], [id number] , [place] tel: [phone] [facility] [place] No Information May-0 3 Kaylee Peoples. [address] [place] [address] [address], [place], [id number] , [place]. [phone] Referring Provider: To [place] [address] [facility], [place], [address]. tel:[phone] OFFICE/OUTPAT IENT VISIT, [facility], [address] [place] [address], [id number] , [place] tel:[phone] [facility] bilateral hip pain (chief complaint) Chronic pain syndromePressure ulcer of right heel, unspecified stageBilateral primary osteoarthritis of hipUnilateral primary osteoarthritis, left kneePrimary osteoarthritis, right shoulderPrimary osteoarthritis, left shoulderLong term (current) use of opiate analgesicEncount er for therapeutic drug level monitoring 3 Kaylee Peoples. [address] [facility] [address], [place], [id number] , [place]. tel:[phone] Referring Provider: To [place] [address] [place], [address]. tel:[phone] [facility], [address] [place] [address], [id number] , [place] [phone] [facility] [place] Bilateral primary osteoarthritis of hip 3 Mikael Tolbert. [address] [place], [place], [id number] , [place]. tel:[phone] Referring Provider: To [place] [address] [place], [address]. tel:[phone] OFFICE VISIT, [facility] TELEMEDICINE [facility], [address] [place] [address], [id number] , [place] tel:[phone] [facility] bilateral hip pain (chief complaint) Chronic pain syndromePressure ulcer of right heel, unspecified stageBilateral primary osteoarthritis of hipUnilateral primary osteoarthritis, left kneePrimary osteoarthritis, right shoulderPrimary osteoarthritis, left shoulderLong term (current) use of opiate analgesic 3 Kaylee Peoples. [address] [facility] [address], [place], [id number] , [place]. tel:[phone] Referring Provider: Tomasz Benjamin, [address] [place] [address], [id number]. tel:[phone] OFFICE VISIT, [facility] TELEMEDICINE [facility], [address] [place] [address], [id number] , [place] tel:[phone] [facility] bilateral hip pain (chief complaint) Chronic pain syndromePressure ulcer of right heel, unspecified stageBilateral primary osteoarthritis of hipUnilateral primary osteoarthritis, left kneePrimary osteoarthritis, right shoulderPrimary osteoarthritis, left shoulderLong term (current) use of opiate analgesic Sony-0 3 Page Shelton. [address] [place] [address] [address], [place], [place], [id number] , [place]. tel:[phone] OFFICE/OUTPAT IENT VISIT, [facility], [address] [place] [address], [id number] , [place] tel:[phone] [facility] bilateral hip pain (chief complaint) Chronic pain syndromePressure ulcer of right heel, unspecified stageBilateral primary osteoarthritis of hipUnilateral primary osteoarthritis, left kneePrimary osteoarthritis, right shoulderPrimary osteoarthritis, left shoulderLong term (current) use of opiate analgesic February-0 3 Page Shelton. [address] [place] [address] [address], [place], [place], [id number] , [place]. tel:[phone] Referring Provider: To [place] [address] [place], [address]. tel:[phone] [place] [address] [facility], [address] [place] [address], [id number] , [place] tel:[phone] [facility] No Information 0 3 Kaylee Peoples. [address] [place] [address] [address], [place], [place], [id number] , [place]. tel:[phone] Referring Provider: To [place] [place], [address]. tel:[phone] [facility], [address] [place] [address], [id number] , [place] tel: [phone] [facility] [place] Unilateral primary osteoarthritis, left knee Apr-1 7- 3 Mikael Tolbert. [address] [facility] [place], [place], [id number] , [place]. tel: [phone] Referring Provider: To [place] [address] , [place], [address]. [phone] [facility], [address] [place] [address] [place], [id number] , [place] tel: [phone] [facility] Unilateral primary osteoarthritis, left knee Apr-1 0-202 3 Mikael Tolbert. [address] [place], [place], [id number] , [place]. tel: [phone] Referring Provider: To [place]te [place] [address], [place], [address]. [phone] OFFICE VISIT, EST TELEMEDICINE [facility], [address] [place] [address] [place], [id number] , [place] tel: [phone] [facility] [place] bilateral hip pain (chief complaint) Chronic pain syndromePressure ulcer of right heel, unspecified stageBilateral primary osteoarthritis of hipUnilateral primary osteoarthritis, left kneePrimary osteoarthritis, right shoulderPrimary osteoarthritis, left shoulderLong term (current) use of opiate analgesic Apr-0 4-202 3 Aleksandr Sadie. [address] [facility] [address], [place], [id number] , [place]. tel: [phone] OFFICE VISIT, EST TELEMEDICINE [facility], [address] [place] [address] [place], [id number] , [place] tel: [phone] [facility] [place] bilateral hip pain (chief complaint) Chronic pain syndromePressure ulcer of right heel, unspecified stageBilateral primary osteoarthritis of hipUnilateral primary osteoarthritis, left kneePrimary osteoarthritis, right shoulderPrimary osteoarthritis, left shoulderLong term (current) use of opiate analgesic Mar-0 9-202 3 Aleksandr Sadie. [address] [facility] [address], [place], [id number] , [place]. tel: [phone] Referring Provider: Tomasz Benjamin, [address] [place], [address]. tel:[phone] [facility], [address] [place] [address], [id number] , [place] tel: [phone] [facility] [place] No Information 3 Kaylee Peoples. [address] [facility] [address], [place], [id number] , [place]. tel: [phone] [facility], [address] [place] [address], [id number] , [place] tel: [phone] [facility] [place] No Information 3 Aleksandr Sadie. [address] [facility] [address], [place], [id number] , [place]. tel: [phone] OFFICE/OUTPAT IENT VISIT, EST [facility], [address] [place] [address], [id number] , [place] tel: [phone] [facility] bilateral hip pain (chief complaint) Chronic pain syndromePressure ulcer of right heel, unspecified stageBilateral primary osteoarthritis of hipUnilateral primary osteoarthritis, left kneePrimary osteoarthritis, right shoulderPrimary osteoarthritis, left shoulderLong term (current) use of opiate analgesicEncount er for therapeutic drug level monitoring 3 Aleksandr Sadie. [address] [facility] [address], [place], [id number] , [place]. tel: [phone] OFFICE VISIT, EST TELEMEDICINE [facility], [address] [place] [address], [id number] , [place] tel: [phone] [facility] [place] bilateral hip pain (chief complaint) Chronic pain syndromePressure ulcer of right heel, unspecified stageBilateral primary osteoarthritis of hipUnilateral primary osteoarthritis, left kneePrimary osteoarthritis, right shoulderPrimary osteoarthritis, left shoulderLong term (current) use of opiate analgesic 3 Kaylee Peoples. [address] [facility] [address], [place], [id number] , [place]. tel:[phone] Referring Provider: Tomasz Benjamin, [address] [place] [address], [address]. tel:[phone] OFFICE VISIT, EST TELEMEDICINE [facility], [address] [place] [address], [id number] , [place] [phone] [facility] bilateral hip pain (chief complaint) Chronic pain syndromePressure ulcer of right heel, unspecified stageBilateral primary osteoarthritis of hipUnilateral primary osteoarthritis, left kneePrimary osteoarthritis, right shoulderPrimary osteoarthritis, left shoulderLong term (current) use of opiate analgesic Sep- 2 Kaylee Peoples. [address] [place] [address] [address], [place], [id number] , [place]. [phone] Referring Provider: Tomasz Benjamin, [address] [place] [address], [id number]. tel:[phone] [facility], [address] [place] [address], [id number] , [place] [phone] [facility] No Information 2 Kaylee Peoples. [address] [place] [address] [address], [place], [id number] , [place]. tel:[phone] Referring Provider: oT [place] , [place], [address]. tel:[phone] OFFICE/OUTPAT IENT VISIT, [facility], [address] [place] [address], [id number] , [place] tel:[phone] [facility] bilateral hip pain (chief complaint) Chronic pain syndromePressure ulcer of right heel, unspecified stageBilateral primary osteoarthritis of hipUnilateral primary osteoarthritis, left kneePrimary osteoarthritis, right shoulderPrimary osteoarthritis, left shoulderLong term (current) use of opiate analgesicEncount er for therapeutic drug level monitoring 2 Kaylee Peoples. [address] [place] [address] [address], [place], [id number] , [place]. tel:[phone] Referring Provider: To Whyte [place] [address] [facility], [place], [address]. tel:[phone] OFFICE VISIT, [facility], [address] [place] [address], [id number] , [place] tel:[phone] [facility] bilateral hip pain (chief complaint) Chronic pain syndromePressure ulcer of right heel, unspecified stageBilateral primary osteoarthritis of hipUnilateral primary osteoarthritis, left kneePrimary osteoarthritis, right shoulderPrimary osteoarthritis, left shoulderLong term (current) use of opiate analgesic 2 Félix Edmondson. [address] [place] [address], [id number] , [place]. tel:[phone] Referring Provider: Tomasz Benjamin, [address] [place] [address], [id number]. tel:[phone] [facility], [address] [place] [address], [id number] , [place] tel:[phone] [facility] No Information Sep-2 2 Kaylee Peoples. [facility] [facility] [address], [place], [id number] , [place]. tel:[phone] Referring Provider: To Whyte [place] [address] [facility], [place], [address]. tel:[phone] OFFICE/OUTPAT IENT VISIT, [facility], [address] [place] [address], [id number] , [place] tel:[phone] [facility] bilateral hip pain (chief complaint) Chronic pain syndromeBilatera l primary osteoarthritis of hipEncounter for screening for other disorderEncounte r for therapeutic drug level monitoringPrimar y osteoarthritis, left shoulderPrimary osteoarthritis, right shoulderLong term (current) use of opiate analgesicPressur e ulcer of right heel, unspecified stageUnilateral primary osteoarthritis, left knee Sep-2 2 Kaylee Peoples. [address] [facility] [address], [place], [id number] , [place]. tel:[phone] Referring Provider: To [place] [address], [place], [address]. tel:[phone] Family History Family Member Type Diagnosis Age At Onset No Information Payers Payer name Insurance type Covered alliance party ID Horace vargas(s) ZULY MedicareComplete Replacement [id number] [place] [employer] Medicaid [id number] Social History Type Description Quantity Date Captured Comments Alcohol Use Details 1 drink monthly Caffeine Use Details Unknown Tobacco Use Status Current non-smoker Smoking Status Never smoker Non-Smoking Tobacco Use Details : No Details Available : No Details Available Sex Male Chief Complaint And Reason For Visit From encounter dated 08/05/2023 13:00'. bilateral hip pain (chief complaint). Description: Severity level is severe. Duration chronic. The problem is fluctuating. It occurs constantly. Location of pain is bilateral. The client describes the pain as an ache and sharp. Symptom is aggravated by lifting weight, prolonged standing, sitting, standing and housework. Relieving factors include rest, medications, sitting and changing positions. Pertinent negatives include fever. Reason For Referral Reason For Referral No Information Plan Of Treatment Date Type Action Status Goal OARS. Due on due Goal ALT (SGPT). Due on due Goal UDT. Due on due Goal PIPE AND TEST SUPERVISOR Scanned. Due on 023 due Goal Creatinine. Due on due Goal AST (SGOT). Due on due Goal Order Annual PT. Due on due Goal SHORT FILLER BUNCH MACHINE OPERATOR Paperwork. Due on due Goal Tobacco Use. Due on 023 due Goal FIT-DNA. Due on due Goal CT-Colonography. Due on due Goal FIT. Due on due Goal Zoster vaccine (1st). Due on due Goal Height. Due on d ue Goal Review Allergy List. Due on due Goal Update Social History. Due o n due Goal Weight. Due on d ue Goal PHQ-9. Due on du e Goal Hepatitis C screening. Due o n due Goal Lipid panel. Due on due Goal Unhealthy drug use screening . Due on due Goal Medication Reconciliation. D ue on due Goal ALT (SGPT). Due on due Goal AST (SGOT). Due on due Goal OARS. Due on due Goal SHORT FILLER BUNCH MACHINE OPERATOR Paperwork. Due on due Goal PIPE AND TEST SUPERVISOR Scanned. Due on due Goal Order Annual PT. Due on due Goal Creatinine. Due on due Goal UDT. Due on due Goal Review Allergy List. Due on due Goal Weight. Due on d ue Goal Tobacco Use. Due on due Goal CT-Colonography. Due on due Goal Height. Due on d ue Goal Zoster vaccine (1st). Due on due Goal FIT-DNA. Due on due Goal FIT. Due on due Goal Hepatitis C screening. Due o n due Goal Lipid panel. Due on due Goal Update Social History. Due o n due Goal PHQ-9. Due on du e Goal Unhealthy drug use screening . Due on due Goal Medication Reconciliation. D ue on due Goal AST (SGOT). Due on due Goal UDT. Due on due Goal Order Annual PT. Due on due Goal OARS. Due on due Goal Creatinine. Due on due Goal PIPE AND TEST SUPERVISOR Scanned. Due on due Goal ALT (SGPT). Due on due Goal SHORT FILLER BUNCH MACHINE OPERATOR Paperwork. Due on due Goal Unhealthy drug use screening . Due on due Goal Review Allergy List. Due on due Goal Update Social History. Due o n due Goal Zoster vaccine (1st). Due on due Goal Lipid panel. Due on due Goal FIT. Due on due Goal Hepatitis C screening. Due o n due Goal FIT-DNA. Due on due Goal Tobacco Use. Due on 023 due Goal Height. Due on d ue Goal CT-Colonography. Due on due Goal PHQ-9. Due on du e Goal Weight. Due on d ue Goal Medication Reconciliation. D ue on due Goal ALT (SGPT). Due on due Goal OARS. Due on due Goal SHORT FILLER BUNCH MACHINE OPERATOR Paperwork. Due on due Goal AST (SGOT). Due on due Goal Creatinine. Due on due Goal Order Annual PT. Due on due Goal UDT. Due on due Goal PIPE AND TEST SUPERVISOR Scanned. Due on due Goal Weight. Due on d ue Goal CT-Colonography. Due on due Goal PHQ-9. Due on du e Goal Unhealthy drug use screening . Due on due Goal Height. Due on d ue Goal Zoster vaccine (1st). Due on due Goal Medication Reconciliation. D ue on due Goal FIT-DNA. Due on due Goal Hepatitis C screening. Due o n due Goal Update Social History. Due o n due Goal Lipid panel. Due on due Goal FIT. Due on due Goal Review Allergy List. Due on due Goal Tobacco Use. Due on due Goal SHORT FILLER BUNCH MACHINE OPERATOR Paperwork. Due on due Goal Creatinine. Due on due Goal AST (SGOT). Due on due Goal PIPE AND TEST SUPERVISOR Scanned. Due on due Goal ALT (SGPT). Due on due Goal Order Annual PT. Due on due Goal UDT. Due on due Goal OARS. Due on due Goal Update Social History. Due o n due Goal Weight. Due on d ue Goal Zoster vaccine (1st). Due on due Goal CT-Colonography. Due on due Goal Height. Due on d ue Goal FIT-DNA. Due on due Goal Hepatitis C screening. Due o n due Goal Lipid panel. Due on due Goal Tobacco Use. Due on due Goal FIT. Due on due Goal Unhealthy drug use screening . Due on due Goal PHQ-9. Due on du e Goal Medication Reconciliation. D ue on due Goal Review Allergy List. Due on due Goal ALT (SGPT). Due on due Goal Order Annual PT. Due on due Goal AST (SGOT). Due on due Goal UDT. Due on due Goal SHORT FILLER BUNCH MACHINE OPERATOR Paperwork. Due on due Goal OARS. Due on due Goal Creatinine. Due on due Goal PIPE AND TEST SUPERVISOR Scanned. Due on due Goal CT-Colonography. Due on due Goal Update Social History. Due o n due Goal Tobacco Use. Due on due Goal Weight. Due on d ue Goal FIT. Due on due Goal Lipid panel. Due on due Goal Hepatitis C screening. Due o n due Goal PHQ-9. Due on du e Goal Height. Due on d ue Goal FIT-DNA. Due on due Goal Zoster vaccine (1st). Due on due Goal Unhealthy drug use screening . Due on due Goal Review Allergy List. Due on due Goal Medication Reconciliation. D ue on due Goal Order Annual PT. Due on due Goal AST (SGOT). Due on due Goal SHORT FILLER BUNCH MACHINE OPERATOR Paperwork. Due on due Goal Creatinine. Due on due Goal OARS. Due on due Goal ALT (SGPT). Due on due Goal UDT. Due on due Goal PIPE AND TEST SUPERVISOR Scanned. Due on due Goal Zoster vaccine (1st). Due on due Goal PHQ-9. Due on du e Goal Lipid panel. Due on due Goal CT-Colonography. Due on due Goal Hepatitis C screening. Due o n due Goal FIT-DNA. Due on due Goal Review Allergy List. Due on due Goal FIT. Due on due Goal Tobacco Use. Due on due Goal Unhealthy drug use screening . Due on due Goal Height. Due on d ue Goal Update Social History. Due o n due Goal Weight. Due on d ue Goal Medication Reconciliation. D ue on due Goal UDT. Due on due Goal OARS. Due on due Goal PIPE AND TEST SUPERVISOR Scanned. Due on due Goal AST (SGOT). Due on due Goal SHORT FILLER BUNCH MACHINE OPERATOR Paperwork. Due on due Goal Order Annual PT. Due on due Goal ALT (SGPT). Due on due Goal Creatinine. Due on due Goal CT-Colonography. Due on due Goal Review Allergy List. Due on due Goal FIT-DNA. Due on due Goal Medication Reconciliation. D ue on due Goal PHQ-9. Due on du e Goal Update Social History. Due o n due Goal Height. Due on d ue Goal Unhealthy drug use screening . Due on due Goal Hepatitis C screening. Due o n due Goal FIT. Due on due Goal Lipid panel. Due on due Goal Zoster vaccine (1st). Due on due Goal Tobacco Use. Due on due Goal Weight. Due on d ue Goal Creatinine. Due on due Goal PIPE AND TEST SUPERVISOR Scanned. Due on due Goal UDT. Due on due Goal OARS. Due on due Goal ALT (SGPT). Due on due Goal Order Annual PT. Due on due Goal AST (SGOT). Due on due Goal SHORT FILLER BUNCH MACHINE OPERATOR Paperwork. Due on due Goal Tobacco Use. Due on due Goal Zoster vaccine (1st). Due on due Goal Medication Reconciliation. D ue on due Goal Unhealthy drug use screening . Due on due Goal Height. Due on d ue Goal FIT. Due on due Goal Review Allergy List. Due on due Goal FIT-DNA. Due on due Goal Weight. Due on d ue Goal CT-Colonography. Due on due Goal PHQ-9. Due on du e Goal Lipid panel. Due on due Goal Hepatitis C screening. Due o n due Goal Update Social History. Due o n due Goal Creatinine. Due on due Goal PIPE AND TEST SUPERVISOR Scanned. Due on due Goal UDT. Due on due Goal OARS. Due on due Goal ALT (SGPT). Due on due Goal Order Annual PT. Due on due Goal AST (SGOT). Due on due Goal SHORT FILLER BUNCH MACHINE OPERATOR Paperwork. Due on due Goal Tobacco Use. Due on due Goal Zoster vaccine (1st). Due on due Goal Medication Reconciliation. D ue on due Goal Unhealthy drug use screening . Due on due Goal Height. Due on d ue Goal FIT. Due on due Goal Review Allergy List. Due on due Goal FIT-DNA. Due on due Goal Weight. Due on d ue Goal CT-Colonography. Due on due Goal PHQ-9. Due on du e Goal Lipid panel. Due on due Goal Hepatitis C screening. Due o n due Goal Update Social History. Due o n due Goal SHORT FILLER BUNCH MACHINE OPERATOR Paperwork. Due on due Goal OARS. Due on due Goal Creatinine. Due on due Goal PIPE AND TEST SUPERVISOR Scanned. Due on due Goal ALT (SGPT). Due on due Goal AST (SGOT). Due on due Goal UDT. Due on due Goal Order Annual PT. Due on due Goal Update Social History. Due o n due Goal Review Allergy List. Due on due Goal Hepatitis C screening. Due o n due Goal FIT. Due on due Goal Weight. Due on d ue Goal FIT-DNA. Due on due Goal Unhealthy drug use screening . Due on due Goal Tobacco Use. Due on due Goal Zoster vaccine (). Due on due Goal Medication Reconciliation. D ue on due Goal PHQ-9. Due on du e Goal Lipid panel. Due on due Goal Height. Due on d ue Goal CT-Colonography. Due on due Goal Tobacco Use. Due on due Goal Weight. Due on d ue Goal FIT. Due on due Goal PHQ-9. Due on du e Goal Update Social History. Due o n due Goal Zoster vaccine (1st). Due on due Goal Height. Due on d ue Goal Unhealthy drug use screening . Due on due Goal Hepatitis C screening. Due o n due Goal Review Allergy List. Due on due Goal Lipid panel. Due on due Goal AST (SGOT). Due on due Goal UDT. Due on due Goal Creatinine. Due on due Goal OARS. Due on due Goal SHORT FILLER BUNCH MACHINE OPERATOR Paperwork. Due on due Goal ALT (SGPT). Due on due Goal Order Annual PT. Due on due Goal PIPE AND TEST SUPERVISOR Scanned. Due on due Goal FIT-DNA. Due on due Goal CT-Colonography. Due on due Goal Medication Reconciliation. D ue on due Goal OARS. Due on due Goal PIPE AND TEST SUPERVISOR Scanned. Due on due Goal SHORT FILLER BUNCH MACHINE OPERATOR Paperwork. Due on due Goal ALT (SGPT). Due on due Goal UDT. Due on due Goal AST (SGOT). Due on due Goal Creatinine. Due on due Goal Order Annual PT. Due on due Goal FIT. Due on due Goal Lipid panel. Due on due Goal FIT-DNA. Due on due Goal Zoster vaccine (1st). Due on due Goal Unhealthy drug use screening . Due on due Goal Height. Due on d ue Goal Update Social History. Due o n due Goal Weight. Due on d ue Goal Medication Reconciliation. D ue on due Goal Tobacco Use. Due on 023 due Goal PHQ-9. Due on du e Goal Review Allergy List. Due on due Goal Hepatitis C screening. Due o n due Goal CT-Colonography. Due on due Goal Creatinine. Due on due Goal Order Annual PT. Due on due Goal ALT (SGPT). Due on due Goal PIPE AND TEST SUPERVISOR Scanned. Due on due Goal UDT. Due on due Goal AST (SGOT). Due on due Goal OARS. Due on due Goal SHORT FILLER BUNCH MACHINE OPERATOR Paperwork. Due on due Goal Medication Reconciliation. D ue on due Goal Weight. Due on d ue Goal Lipid panel. Due on due Goal Review Allergy List. Due on due Goal Hepatitis C screening. Due o n due Goal Height. Due on d ue Goal CT-Colonography. Due on due Goal PHQ-9. Due on du e Goal Update Social History. Due o n due Goal FIT-DNA. Due on due Goal Zoster vaccine (1st). Due on due Goal Tobacco Use. Due on due Goal FIT. Due on due Goal Unhealthy drug use screening . Due on due Goal AST (SGOT). Due on due Goal Creatinine. Due on due Goal OARS. Due on due Goal PIPE AND TEST SUPERVISOR Scanned. Due on due Goal ALT (SGPT). Due on due Goal Zoster vaccine (1st). Due on due Goal PHQ-9. Due on du e Goal Review Allergy List. Due on due Goal FIT. Due on due Goal FIT-DNA. Due on due Goal Hepatitis C screening. Due o n due Goal Tobacco Use. Due on due Goal CT-Colonography. Due on due Goal Weight. Due on d ue Goal Unhealthy drug use screening . Due on due Goal Height. Due on d ue Goal Update Social History. Due o n due Goal Lipid panel. Due on due Goal Medication Reconciliation. D ue on due Goal Order Annual PT. Due on due Goal SHORT FILLER BUNCH MACHINE OPERATOR Paperwork. Due on due Goal UDT. Due on due Goal Order Annual PT. Due on due Goal PIPE AND TEST SUPERVISOR Scanned. Due on due Goal AST (SGOT). Due on due Goal OARS. Due on due Goal Creatinine. Due on due Goal ALT (SGPT). Due on due Goal Medication Reconciliation. D ue on due Goal Update Social History. Due o n due Goal Lipid panel. Due on due Goal Review Allergy List. Due on due Goal Unhealthy drug use screening . Due on due Goal CT-Colonography. Due on due Goal Tobacco Use. Due on due Goal Zoster vaccine (1st). Due on due Goal FIT. Due on due Goal PHQ-9. Due on du e Goal Hepatitis C screening. Due o n due Goal Weight. Due on d ue Goal Height. Due on d ue Goal FIT-DNA. Due on due Goal SHORT FILLER BUNCH MACHINE OPERATOR Paperwork. Due on due Goal UDT. Due on due Goal SHORT FILLER BUNCH MACHINE OPERATOR Paperwork. Due on due Goal PIPE AND TEST SUPERVISOR Scanned. Due on due Goal AST (SGOT). Due on due Goal Order Annual PT. Due on due Goal OARS. Due on due Goal ALT (SGPT). Due on due Goal UDT. Due on due Goal Creatinine. Due on due Goal Update Social History. Due o n due Goal Review Allergy List. Due on due Goal FIT-DNA. Due on due Goal Height. Due on d ue Goal PHQ-9. Due on du e Goal Medication Reconciliation. D ue on due Goal Tobacco Use. Due on due Goal CT-Colonography. Due on due Goal Lipid panel. Due on due Goal Zoster vaccine (1st). Due on due Goal Weight. Due on d ue Goal Hepatitis C screening. Due o n due Goal Unhealthy drug use screening . Due on due Goal FIT. Due on due Goal Lipid panel. Due on due Goal Update Social History. Due o n due Goal FIT. Due on due Goal FIT-DNA. Due on due Goal Zoster vaccine (1st). Due on due Goal Weight. Due on d ue Goal Height. Due on d ue Goal PHQ-9. Due on du e Goal Medication Reconciliation. D ue on due Goal Hepatitis C screening. Due o n due Goal Tobacco Use. Due on due Goal Unhealthy drug use screening . Due on due Goal Review Allergy List. Due on due Goal CT-Colonography. Due on due Goal Order Annual PT. Due on due Goal ALT (SGPT). Due on due Goal AST (SGOT). Due on due Goal Creatinine. Due on due Goal OARS. Due on due Goal SHORT FILLER BUNCH MACHINE OPERATOR Paperwork. Due on due Goal UDT. Due on due Goal PIPE AND TEST SUPERVISOR Scanned. Due on due Goal Weight. Due on d ue Goal Medication Reconciliation. D ue on due Goal Lipid panel. Due on due Goal Review Allergy List. Due on due Goal FIT-DNA. Due on due Goal CT-Colonography. Due on due Goal Height. Due on d ue Goal Zoster vaccine (1st). Due on due Goal Unhealthy drug use screening . Due on due Goal Tobacco Use. Due on due Goal FIT. Due on due Goal Update Social History. Due o n due Goal Hepatitis C screening. Due o n due Goal PHQ-9. Due on du e Goal Creatinine. Due on due Goal UDT. Due on due Goal PIPE AND TEST SUPERVISOR Scanned. Due on due Goal SHORT FILLER BUNCH MACHINE OPERATOR Paperwork. Due on due Goal OARS. Due on due Goal AST (SGOT). Due on due Goal ALT (SGPT). Due on due Goal Order Annual PT. Due on due Goal Weight. Due on d ue Goal Medication Reconciliation. D ue on due Goal Lipid panel. Due on due Goal Review Allergy List. Due on due Goal FIT-DNA. Due on due Goal CT-Colonography. Due on due Goal Height. Due on d ue Goal Zoster vaccine (1st). Due on due Goal Unhealthy drug use screening . Due on due Goal Tobacco Use. Due on 022 due Goal FIT. Due on due Goal Update Social History. Due o n due Goal Hepatitis C screening. Due o n due Goal PHQ-9. Due on du e History Of Present Illness Encounter Date Complaint History Of Prese nt Illness bilateral hip pain Severity leve l is severe. Duration chronic. The problem is fluctuating. It occurs constantly. Location of pain is bilateral. The client describes the pain as an ache and sharp. Symptom is aggravated by lifting weight, prolonged standing, sitting, standing and housework. Relieving factors include rest, medications, sitting and changing positions. Pertinent negatives include fever. Comments: Andres is a 68 y/o male who presents in clinic for a follow up and medication refill in the setting of chronic BL hip pain. Pain has been fluctuating since [place] primarily in his left hip and left knee. S/p left hip joint injection on 07/26/23 reports >60% relief. The 50% steroid allowed him to avoid hospitalization from hyperglycemia. Notes his blood sugars were elevated but only slightly. States he knows he needs a replacement but was denied surgery previously d/t his weight and other risks. Agreeable for a referral for a second opinion as he wants to pursue surgery instead of more conservative measures.His left knee pain is persistent, and worse with the colder weather. Plans to schedule his previously ordered BRAND injection soon. Reports current medication regimen provides moderate pain relief and allows for increased functionality. Presents on track with Oxycodone and Xtampza ER. Denies OIC or other side effects from current medication regimen. No other concerns today. bilateral hip pain Severity leve l is moderate. Duration chronic. The problem is worsening. It occurs constantly. Location of pain is bilateral left hip, left knee. Comments: Andres is a 68 y/o male who presents for virtual follow up and medication refill in the setting of chronic BL hip pain. Pain has been worse since [place] primarily in his left hip and left knee. Requests to repeat injections in his left knee, but would like to try a 1 series BRAND this time.Has his repeat left hip injection scheduled for 07/26/23. Of note, he receives 50% steroid due to SE with previous injections of hyperglycemia requiring hospitalization.Reports current medication regimen provides 50% pain relief and allows for increased functionality. Presents on track with Oxycodone and Xtampza ER. Denies OIC or other side effects from current medication regimen. No other concerns today. bilateral hip pain Duration digital sales representative della. Location of pain is bilateral. Comments: Andres is a 68 y/o male who presents for virtual follow up and medication refill in the setting of chronic BL hip pain. Pain has been worse since [place]. Left hip injection on 04/15/[address] Youssef reports significant relief, but feels that it is wearing off now. He believes that the half steroid works the best for him. Would like to repeat.Reports current medication regimen provides 50% pain relief and allows for increased functionality. Presents on track with Oxycodone and a surplus on his Xtampza ER. Denies OIC or other side effects from current medication regimen. No other concerns today. Comments: Andres is a 68 y/o male who presents for virtual follow up and medication refill in the setting of chronic BL hip pain. Pain has been overall stable since [facility]. S/p left hip injection on 04/15/[address] Youssef reports significant relief. He believes that the half steroid works the best for him.L knee pain has been stable, but notes some crackling sensation. S/p left knee BRAND injection 01/11/23, 01/18/23, and 01/25/[address] Youssef, reporting ongoing relief. Would like to repeat in ~5 months. Of note, the ulcer on his leg is healing well. Also has a diabetic wellness check coming up on 05/17/23.Reports current medication regimen provides significant pain relief and allows for increased functionality. Presents on track with prescribed medication. Continues to utilize Oxycodone 5mg and Xtampza ER 9mg with significant benefit. Denies OIC or other side effects from current medication regimen. No other concerns today. bilateral hip pain Severity leve l is moderate. Duration chronic. The problem is showing no change. Location of pain is bilateral. Pertinent negatives include fever. bilateral hip pain Severity leve l is moderate. Duration chronic. The problem is worsening. Location of pain is left. Pertinent negatives include fever. Comments: Andres is a 68 y/o male who presents for virtual follow up and medication refill in the setting of chronic BL hip pain. Pain has been worsening this month and patient notes he thought about going to the hospital a few times. Reports he is struggling to go to the bathroom d/t the pain. He is looking forward to his left hip injection that is scheduled for 04/15/23.L knee pain has been stable, but notes some crackling sensation. S/p left knee BRAND injection 01/11/23, 01/18/23, and 01/25/[address] Youssef, reporting ongoing relief. Plans to repeat in 6 months. Of note, the ulcer on his leg is healing well and his next appointment with wound care is 04/22/23.Reports current medication regimen provides 50% pain relief and allows for increased functionality. Presents on track with prescribed medication. Continues to utilize Oxycodone 5mg and Xtampza ER 9mg with significant benefit. Requests extra Oxycodone for pain management leading up to his injection. Reports trialling THC gummies without much benefit regarding his pain. Denies OIC or other side effects from current medication regimen. No other concerns today. Comments: Andres is a 67 y/o male who presents for follow up and medication refill in the setting of chronic BL hip pain. Pain has been worse this month. L knee pain has been stable. S/p left knee BRAND injection 01/11/23, 01/18/23, and 01/25/[address] Youssef, reporting ongoing relief.Reports current medication regimen provides significant pain relief and allows for increased functionality. Presents on track with prescribed medication. Continues to utilize Oxycodone 5mg and Xtampza ER 9mg with significant benefit. Reports trialling THC gummies without much benefit regarding his pain. Denies OIC or other side effects from current medication regimen. No other concerns today. bilateral hip pain Duration digital sales representative della. The problem is worsening. Location of pain is bilateral. Comments: Andres is a 67 y/o male who presents for follow up and medication refill in the setting of chronic BL hip pain. Pain has been worse this month. L knee pain has been stable. S/p left knee BRAND injection 01/11/23, 01/18/23, and 01/25/[address] Youssef, reporting 80% pain relief.Notes he completed eye injections for cataracts yesterday, with benefit.Of note, he is looking forward to the warmer weather.Reports current medication regimen provides significant pain relief and allows for increased functionality. Presents on track with prescribed medication. Continues to utilize Oxycodone 5mg and Xtampza ER 9mg with significant benefit. Reports trialling THC gummies without much benefit regarding his pain. Denies OIC or other side effects from current medication regimen. No other concerns today. bilateral hip pain Severity bea chou is moderate. Duration chronic. The problem is worsening. It occurs constantly. Location of pain is bilateral. The client describes the pain as an ache, burning and sharp. Symptom is aggravated by active movement, climbing stairs, descending stairs, lifting weight, sitting, standing, prolonged positioning and housework. Relieving factors include rest, RX meds and sitting. Pertinent negatives include fever. bilateral hip pain Duration digital sales representative della. Location of pain is bilateral. Pertinent negatives include fever. Comments: Andres is a 67 y/o male who presents via telephone for follow up consult and medication refill in the setting of chronic BL hip pain. He is routinely followed by my colleague, Shelton Page PA-C. Pain has been relatively stable this month. The first series of his left knee BRAND injection is scheduled on 01/11/23.Upon inquiry, it has not been recommended for him to pursue further cortisone hip injections.Reports current medication regimen provides significant pain relief and allows for increased functionality. Continues to utilize Oxycodone 5mg and Xtampza ER 9mg with significant benefit. Reports trialling THC gummies without much benefit regarding his pain. Denies OIC or other side effects from current medication regimen. No other concerns today.Phone visit began at 1:50pm and ended at 1:56pm. Comments: Andres is a 67 y/o male who presents via phone visit for follow up and medication refill in the setting of chronic BL hip pain. Phone visit began at 12:36pm and ended at 12:44pm. He is followed by my colleague, Shelton Page PA-C. Pain has been fluctuating this month. L knee pain has been the most bothersome. Expressed continued interested in receiving BRAND injections for the knee. Notes he would like to proceed with the procedure at this time.Reports current medication regimen provides significant pain relief and allows for increased functionality. Continues to utilize Oxycodone 5mg and Xtampza ER 9mg with significant benefit. Inquires if he could use CBD gummies. Denies OIC or other side effects from current medication regimen. No other concerns today. bilateral hip pain Duration digital sales representative della. The problem is fluctuating. It occurs constantly. Location of pain is bilateral. Relieving factors include medications. Pertinent negatives include fever. bilateral hip pain Duration digital sales representative della. The problem is worsening. It occurs constantly. Location of pain is bilateral. The client describes the pain as an ache, burning and sharp. Symptom is aggravated by lifting weight, sitting, squatting, bending, housework, movement and prolonged positioning. Relieving factors include rest, medications and changing positions. Pertinent negatives include fever. Comments: This i s my first evaluation of Andres, a 67 y/o man here for follow up and medication refill regarding chronic bilateral hip pain. Patient is routinely followed by my colleague, Shelton Page PA-C. Pain has been worse since last visit and pain level averages 9/10.Reports recent injury to LE in which a car door hit his calf as he was closing it.Continues to f/w wound care for wound on left posterior calf.Upon inquiry, he is interested in left BRAND injection, and would also like a left hip injection for increased pain relief.Medication provides moderate relief and allows for increased functionality. Denies side effects from current medication regimen. Expresses frustration regarding current condition of health as he would like to be able to do more and be more active.No other concerns today. Comments: Andres presents for a virtual follow up and medication refill. Patient c/o chronic bilateral hip pain. Pain has been worse since last visit. Notes he has had increased pain in his left knee and left hip.Scheduled for left BRAND injection on 10/08/[address] Mccoy. Notes he is concerned with the icy roads and inquires about rescheduling it for next week. He is looking forward to the procedure. Medication provides 50% relief and allows for increased functionality per patient intake. Denies side effects from current medication regimen. No other concerns today. bilateral hip pain Severity leve l is moderate. Duration chronic. The problem is worsening. It occurs constantly. Location of pain is bilateral left knee. Pertinent negatives include fever. Comments: Andres presents for a virtual follow up and medication refill. Patient c/o chronic bilateral hip pain. Pain has been stable since last visit. Left hip joint injection ordered on 08/13/2022. He would like to schedule following interventions for his left knee. Left hyaluronic acid injection scheduled on 10/08/2022. He is looking forward to the procedure. Medication provides 25% relief and allows for increased functionality per patient intake. Denies side effects from current medication regimen. No other concerns today. bilateral hip pain Severity leve l is moderate. Duration chronic. The problem is showing no change. It occurs constantly. Location of pain is bilateral. bilateral hip pain Severity leve l is moderate. Duration chronic. The problem is showing no change. It occurs constantly. Location of pain is bilateral. The client describes the pain as an ache and stabbing. Symptom is aggravated by lifting weight, standing, walking, movement and stairs. Relieving factors include ice and rest. Comments: Andres presents for a follow up and medications refill. Patient c/o BL hip pain and left knee pain r/t OA. Pain has been stable since he was last seen. Reports previous cortisone injections have provided a week of relief.Xtampza has been providing more consistent relief than oxycodone. Has been taking about #1-2 Oxycodone per day to supplement. Reports current medication regimen provides 30% pain relief. Denies side effects. No other concerns today. bilateral hip pain Severity leve l is moderate. Duration chronic. The problem is showing no change. Location of pain is bilateral. Pertinent negatives include fever. Comments: Andres presents for a follow up after his initial consult and medications refill. Patient c/o BL hip pain and left knee pain r/t OA. Pain has been stable since he was last seen.Xtampza has been providing more consistent relief than oxycodone. Has been taking about #1-2 Oxycodone per day to supplement. Reports current medication regimen provides 30% pain relief. Denies side effects. No other concerns today. Comments: Srinivasa is a 67 y/o male who presents in-clinic today for initial consultation in the setting of chronic BL hips (L>R) and L knee pain. He is accompanied by his daughter today who also contributes to his discussion of care. Referred by POOJA Moore from [facility]. Shares the pain gradually began 10 years ago. He states pain is aggravated with general movement and relieved with medications and rest. He also reports an ongoing ulcer present at the back of his R heel and states he has established care with a wound doctor to treat the issue. Since he is diabetic, the wound is taking time to fully heal. Pain averages 10/10 this month. Completed PT at [facility] with minimal relief. Have tried cortisone injections for the BL hips. Was advised against pursuing additional injections for the hips as there is a possibly it might dissolve the joints and cause him further pain. He notes the last time he received an injection, it was extremely painful. Believes the needle might have hit the bones in his hips. Also notes the injections causes his blood pressure Currently managed on Oxycodone 5mg with moderate benefit. He states he is able to feel the effects of the medications about an hour after taking it, which makes his pain manageable, but he finds it wears off too quickly. Willing to try a longer acting medication. Patient is interested in medication management from [facility]. No other concerns today. bilateral hip pain Severity leve l is severe. Duration chronic. The problem is worsening. It occurs constantly. Location of pain is bilateral knees. The client describes the pain as dull and sharp. Symptom is aggravated by active movement, climbing stairs, descending stairs, lifting weight, standing, changing positions, walking, twisting, running and housework. Relieving factors include rest and medications. Pertinent negatives include fever. Functional Status Date Functional Assessmen t No Information Instructions Date Instruction Additional Infor patsy No Information Assessments Type Assessment Date assessment Chronic pain syndrome impression Srinivasa is a 68 y/o ma le here with chronic BL hips (L>R), BL shoulders, and L knee pain. Pain has progressively worsened over the past several years. Hip pain has been fluctuating since [facility].Forwarded/Pertinent History: Has completed PT at [facility] with minimal relief assessment Pressure ulcer of right heel, un specified stage impression Presence of pressure ulcer at the back of the R heel, is now minimal. Continues to follow up with wound care for wound on L calf, healing well assessment Bilateral primary osteoarthritis of hip impression Pain in BL hips (L>R ). S/p left hip joint injection on 07/26/23 reports >60% relief. The 50% steroid allowed him to avoid hospitalization from hyperglycemia.Patient knows he needs a replacement but was denied surgery previously d/t his weight and other risks. Agreeable for a referral for a second opinion as he wants to pursue surgery instead of more conservative measures.Forwarded/Pertinent History: S/p left hip injection on 04/15/[address] Youssef reports significant relief. Half steroid works the best for patientSurgeon has recommended he reduce his weight to 275-285 lb, and should have healed wounds prior to any surgical intervention - Recommendation of Dr. Maldonado assessment Unilateral primary osteoarthriti s, left knee impression L Knee pain. Fluctua ting.Forwarded/Pertinent History:S/p left knee BRAND injection 01/11/23, 01/18/23, and 01/25/[address] Youssef, reporting 80% pain relief. Relief has begun to worn off and he requests to repeat today.L Knee XR on 06/25/22CONCLUSION:1. Mild tricompartmental osteoarthritic changes of the left knee.2. 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 Patient has been managing medications appropriately, and is not confused or oversedated during our office visit. Most recent UDT results from 05/10/23 reviewed and are consistent with current medication regimen. Appropriate to continue with opioid therapy assessment Encounter for therapeutic drug l evel monitoring Mental Status Date Cognitive Assessment Orientation - Savannah ed to time, place, person, situation.Normal Orientation Patient Care Teams Name Effective Dates (start - stop) Status Members No Information
--- OUTSIDE RECORDS SUMMARY | 2023-08-12 07:27 | XMS_ITS | Continuity of Care Document ---
Author Name Unknown Organization [facility] enter Address [address] [place] [phone] Phone Care Team Providers Care Food And Beverage Lead Name Role Phone [facility] Unavailable Unava ilable Procedures Procedure Date [id number]/INJECT, JOINT/BURSA Withou t Ultrasound NEEDLE LOCALIZATION BY XRAY [id number]/INJECT, JOINT/BURSA Withou t Ultrasound NEEDLE LOCALIZATION BY XRAY Advance Directives Directive Yes / No Effective Date File Name No Information Encounters Encounter Description Practice Location Reason(s) For Visit Diagnoses Date Provider Providers Copied on Encounter [facility], [address] [place] [address], [id number], tel:[phone] [place] [address] No Information 3 [facility]. [address] [place] [address], [id number], [place]. tel:[phone] Referring Provider: Tomasz Youssef, [address] [place], [address] . tel:[phone] [facility], [address] [place] [address], [id number], tel:[phone] [place] [address] No Information 3 [facility]. [address] [place] [address], [id number], [place]. tel:[phone] Referring Provider: Tomasz Youssef, [address] [place], [address] . tel:[phone] Family History Family Member Type Diagnosis Age At Onset No Information Payers Payer name Insurance type Covered alliance party ID Authoriza tion(s) AARP MedicareComplete Replacement [id number] Blue Plus Medicaid BL [id number] Social History Type Description Quantity Date Captured Comments Sex Male Smoking Status No Information Chief Complaint And Reason For Visit No Information Reason For Referral Reason For Referral No Information History Of Present Illness Encounter Date Complaint History Of Prese nt Illness No Information Functional Status Date Functional Assessmen t No Information Instructions Date Instruction Additional Infor mation No Information Assessments Type Assessment Date No Information Patient Care Teams Name Effective Dates (start - stop) Status Members No Information
== END 2023-08-11 20:05 | disposition home or self-care (01) ==
LOC: AMB 08-12 07:25
PROVIDERS: PCP Physician Assistant Medical; Visit Provider Emergency Medicine
DX: I21.3 ST elevation (STEMI) myocardial infarction of unspecified site (principal)
CPT/HCPCS: A0425; A0427

== ENCOUNTER 2024-03-19 22:48 | Outpatient (CLI) | payer MEDICARE, MEDICAID, SELFPAY ==
--- OUTSIDE RECORDS SUMMARY | 2024-03-31 04:42 | XMS_ITS | Encounter Summary ---
Demographics Address [address] [place] [address] Mobile Phone Email Address Preferred Language en Marital Status Shinto Affiliation Unknown Race White Ethnic Group Not or Lati no Author Organization [facility] Address [address] [place] [address] Care Team Providers Care Clinical Technician Name Role Phone Nuzhat Salinas PA-C Primary Care Provider [phone] Encounter Details Date Type Department Care Team (Late st Contact Info) Description 03/15/2024 Documentation Only [facility] [address] [place] [address] Rachel Clifford [address] [place] [address] Social History Tobacco Use Types Packs/Day Years Used Date Smoking Tobacco: Former Cigars Q uit: 01/27/2014 Smokeless Tobacco: Never Tobacco Cessation:Counseling Given: Not Answered Comments:when he smoked it was a cigar weekly for 8 years in summer Alcohol Use Standard Drinks/Week Comments Not Currently 0 (1 standard drink = 0.6 oz pur e alcohol) Sex and Gender Information Value Date Recorded Sex Assigned at Not on file Gender Identity Not on file Sexual Orientation Not on file documented as of this encounter Plan of Treatment Not on file documented as of this encounter Procedures Procedure Name Priority Date/Time Associated Diagnosis Comments HEMOGLOBIN Routine 12/20/2023 PTH, INTACT Routine 12/20/2023 RENAL FUNCTION PANEL Routine 12/20/2023 documented in this encounter Results * (ABNORMAL) PTH, Intact (12/20/2023) Parathyroid Hormone, Intact 112.0(H) pg/mL [facility] CALCIUM FOR PTH 9.2 [facility] Blood (Blood, Venous) 12/20/2023 Historical Provider MD LAB BLOOD ORDERAB LES Performing Organization Address [facility] Co de Phone Number [facility] * (ABNORMAL) Renal Function Panel (12/20/2023) Glucose 132(H) mg/dL [facility] BUN 34(H) mg/dL [facility] Creatinine 2.02(H) mg/dL [facility] BUN/Creatinine Ratio 17 [facility] Sodium 140 mEq/L [facility] Potassium 4.0 mEq/L [facility] Chloride 99 [facility] Carbon Dioxide 30(H) mmol/L [facility] Calcium 9.2 mg/dL [facility] Phosphorus, Serum 3.7 mg/dL [facility] Albumin (Blood) 3.9(L) g/dL [facility] eGFR 35(L) [facility] Comment:As of 2021, eG FR is calculated by the CKD-EPI creatinine equation without race adjustment. ??eGFR can be influenced by muscle mass, exercise, and diet. ??The reported eGFR is an estimation only and is only applicable if the renal function is stable. Blood (Blood, Venous) 12/20/2023 Historical Provider LAB BLOOD ORDERAB LES Performing Organization Address [facility] Co de Phone Number [facility] * (ABNORMAL) Hemoglobin (12/20/2023) Hemoglobin 12.0(L) g/dL [facility] MCV 90 fL [facility] Blood (Blood, Venous) 12/20/2023 Historical Provider LAB BLOOD ORDERAB LES Performing Organization Address City/[facility]/ZIP Co de Phone Number [facility] documented in this encounter Visit Diagnoses Not on filedocumented in this encounter Care Teams Clinical Technician Relationship Specialty Start Date End Date Nuzhat Salinas PA-C [facility] [place] [address] PCP - General Physician Senior Php Web Developer 01/15/22 documented as of this encounter
--- OUTSIDE RECORDS SUMMARY | 2024-03-31 04:42 | XMS_ITS | Encounter Summary ---
Demographics Address [address] [place] [address] Mobile Phone Email Address Preferred Language en Marital Status Uatsdin Affiliation Unknown Race White Ethnic Group Not or Lati no Author Organization [facility] Address [address] [place] [address] Care Team Providers Care Health Information Technician Name Role Phone Nuzhat Salinas PA-C Primary Care Provider [phone] Encounter Details Date Type Department Care Team (Late st Contact Info) Description 03/16/2024 Telephone [facility] [address] [place] [address] Kayli Lopez, RN [address] [place] [address] Social History Tobacco Use Types Packs/Day Years Used Date Smoking Tobacco: Former Cigars Q uit: 01/27/2014 Smokeless Tobacco: Never Comments:when he smoked it w as a cigar weekly for 8 years in summer Alcohol Use Standard Drinks/Week Comments Not Currently 0 (1 standard drink = 0.6 oz pur e alcohol) Sex and Gender Information Value Date Recorded Sex Assigned at Not on file Gender Identity Not on file Sexual Orientation Not on file documented as of this encounter Miscellaneous Notes * Telephone Encounter - Adalberto Carbajal MD - 03/23/2024 3:41 PM CDT Patient now had labs done on 03/20/24, I reviewed them in [facility] system and [facility] Please database CBC and BMP and Hgb A1C into our system. Renal function wasstable. His weight was also stable when he went in to the [facility] clinic. He can see me in May onthe date that I have openings in [facility] on May 15 (Wednesday). I may ask him to get labs af ter that appointment, but we will decide at that time and he does not need to do labs before that visit for me. If he would like to be seen sooner and if he has telehealth capability, I could do telehealth appointment with him in April from [place] if I have an open slot available. I would prefer to see him in person to do a good exam, however. Thank you. -Roberto Carbajal MD * Telephone Encounter - Michelle Vyas - 03/16/2024 10:17 AM CDT Patient says he can only do a Wednesday or a appt. * Telephone Encounter - Kayli Lopez RN - 03/16/2024 10:08 AM CDT Patient needs to cancel his appt today due to transportation. States he did not complete labs either because he is handicapped. No outstanding lab orders active. He sees Dr. Carbajal in [facility],do you want him seen next available? Or work him in? documented in this encounter Plan of Treatment Not on file documented as of this encounter Visit Diagnoses Not on filedocumented in this encounter Care Teams Health Information Technician Relationship Specialty Start Date End Date Nuzhat Salinas PA-C [address] [place] [address] PCP - General Physician Last Chalker 01/15/22 documented as of this encounter
--- OUTSIDE RECORDS SUMMARY | 2024-03-31 04:42 | XMS_ITS | Encounter Summary ---
Demographics Address [address] [place] [address] Mobile Phone Email Address Preferred Language en Marital Status Congregational Affiliation Unknown Race White Ethnic Group Not or Lati no Author Organization [facility] Address [address] [place] [address] Care Team Providers Care Imaging Aide Name Role Phone Nuzhat Salinas PA-C Primary Care Provider [phone] Encounter Details Date Type Department Care Team (Late st Contact Info) Description 03/30/2024 Office Communication [facility] [address] [place] [address] Mora Donis [address] [place] [address] Social History Tobacco Use Types [...] encounter Miscellaneous Notes * Telephone Encounter - Mora Donis - 03/30/2024 2:56 PM CDT Faxed the Established Patient Letter to the PCP as we are unable to reach the patient to schedule 6M follow up in May with Dr. Carbajal. documented in this encounter Plan of Treatment Not on file documented as of this encounter Visit Diagnoses Not on filedocumented in this encounter Care Teams Imaging Aide Relationship Specialty Start Date End Date Nuzhat Salinas PA-C [address] [place] [address] PCP - General Physician Learning Program Manager 01/15/22 documented as of this encounter
--- OUTSIDE RECORDS SUMMARY | 2024-03-31 04:42 | XMS_ITS | Clinical Summary ---
Demographics Address [address] [facility] [place] [address] Mobile Phone Email Address Preferred Language en Marital Status Adventist Affiliation Unknown Race White Ethnic Group Not or Lati no Author Organization [facility] Address [address] [place] [address] Phone Care Team Providers Care Regional Director Of Admissions Name Role Phone Nuzhat SalinasC Primary Care Provider [phone] Allergies Active Allergy Reactions Criticality Noted Date Comments Atorvastatin Other (see comments) Low 03/11/2016 Ciprofloxacin Itching,Other (see comments) Low 01/13/2016 Dapagliflozin Other (see comments),Swelling 02/24/2024 Leg swelling and achy bones Diphenhydramine Hives High 12/10/2017 Fentanyl Nausea And Vomiting,Other (see comments) Low 03/15/2024 Gabapentin Anxiety,Other (see comments) High 03/09/2016 Shakiness Hydromorphone Nausea And Vomiting,Other (see comments) High 01/22/2016 Hydroxyzine Anxiety,Hives High 05/17/2015 Iodinated Contrast Media Other (see comments) 04/22/2023 Caused kidney failure Latex Hives,Itching,Other (see comments) Low 08/03/2014 Pravastatin Other (see comments) High 11/23/2012 Pregabalin Other (see comments) 06/25/2022 Sulfa Antibiotics Rash Low 03/15/2024 Valsartan Swelling 09/23/2023 Medications Medication Sig Dispensed Refills Start Date End Date Status torsemide (DEMADEX) 20 MG tabletIndications: Stage 3b chronic kidney disease (HCC),Edema TAKE 2 TABLETS BY MOUTH IN THE MORNING AND 1 TABLET IN THE AFTERNOON 270 tablet 02/27/2024 Active aspirin (ST MARGARET) 81 MG EC tablet Take 81 mg by mouth in the morning. 01/24/2014 Active carvedilol (COREG) 3.125 MG tablet Take 3.125 mg by mouth in the morning and 3.125 mg in the evening. 02/02/2022 Active cholecalciferol (VITAMIN D-3 SUPER STRENGTH) 50 MCG (2000 UT) tablet Take one tablet every 3rd day. Active clopidogrel (PLAVIX) 75 MG tablet Take 75 mg by mouth 1 (one) time each day Active Ciclopirox 8 % kit Apply topically to affected area(s) at bedtime. 11/04/2023 Active Jardiance 10 MG tablet Take by mouth 1 (one) time each day Active famotidine (PEPCID) 40 MG tablet Take 40 mg by mouth 1 (one) time each day Active Lantus SoloStar 100 UNIT/ML injection INJECT 50 UNITS EVERY MORNING AND 30 UNITS AT BEDTIME SUBCUTANEOUSLY. STRENGTH: 100 UNIT/ML (3 ML) Active Insulin Lispro, 1 Unit Dial, 100 UNIT/ML solution pen-injector Inject 12-14 units 3-4x/day. Product desired: HUMALOG KWIKPENINJECT 12 TO 14 UNITS 3 TO 4 TIMES PER DAY 02/11/2024 Active isosorbide mononitrate (IMDUR) 30 MG 24 hr tablet Take 30 mg by mouth in the morning. 01/21/2024 Active Naftifine HCl 2 % cream Apply topically to affected area(s) once daily. 11/04/2023 Active nitroglycerin (NITROSTAT) 0.4 MG SL tablet 1 TAB UNDER TONGUE EVERY 5 MIN IF NEEDED FOR CHEST PAIN. CALL MD IF USING MORE THAN 24/30 DAYS 02/02/2022 Active Xtampza ER 9 MG capsule extended-release 12 hour TAKE 1 CAPSULE BY MOUTH EVERY 12 HOURS FOR CHRONIC PAIN 02/24/2024 Active rosuvastatin (CRESTOR) 40 MG tablet Take 40 mg by mouth in the morning. 02/02/2022 Active Polyethylene Glycol 400 0.25 % solution Place into the eye(s) each time if needed (dry eye). Active ZINC GLUCONATE PO Take one tablet every 3rd day. Active Active Problems Problem Noted Date Diagnosed Date Anemia in chronic kidney disease 01/29/2022 Iron deficiency anemia 01/29/2022 Stage 3b chronic kidney disease 01/13/2016 Encounters Date Type Department Care Team Description 03/30/2024 Office Communication [facility] [place] [address] [place] [address] DebrainessaMora 03/16/2024 Telephone [facility] [place] [address] [place] [address] Kayli Lopez RN 03/15/2024 Documentation Only [facility] [address] [place] [address] Rachel Clifford 02/25/2024 Telephone [facility] [address] [place] [address] Adalberto Carbajal MD Med Refill from Last 3 Months Immunizations Name Administration Dates Next Due Influenza Vaccine, Quadrivalent, Adjuvanted 08/05,06/26/2020 Pfizer SARS-COV-2 12/30/2020,12/09/2020,12/07/19 21 Pfizer SARS-CoV-2 Bivalent 30 mcg/0.3 mL 022 Tdap 10/26/2022,07/23/2010,06/05/2009 Family History Medical History Relation Comments Cancer Father lung cancer Heart disease Father Heart disease Mother Kidney disease Mother Diabetes Sister Relation Status Comments Father Mother Sister Social History Tobacco Use Types Packs/Day Years [...] on file Sexual Orientation Not on file Plan of Treatment Health Maintenance Due Date Last Done Comments Pneumococcal Vaccine: 65+ Years (1 of 2 - PCV) 1961 Colorectal Cancer Screening: Annual FOBT 2004 Colorectal Cancer Screening: Colonoscopy 2004 Colorectal Cancer Screening: Sigmoidoscopy 2004 Diabetes: Ophthalmology Exam 01/17/2022 Diabetes: Pedal Pulse Checked 01/17/2022 Diabetes: Sensory Foot Exam 01/17/2022 Diabetes: Visual Foot Exam 01/17/2022 Diabetes: Hemoglobin A1C 03/21/2024 024, 12/29/2021 Influenza Vaccine (Season Ended) 2024 08/24/2022, 06/26/2020 Hepatitis B Vaccine Aged Out No longe r eligible based on patient's age to complete this topic Care Teams Regional Director Of Admissions Relationship Specialty Start Date End Date Nuzhat Salinas PA-C [address] [place] [address] PCP - General Physician Field Account Director 01/15/22
--- OUTSIDE RECORDS SUMMARY | 2024-03-31 04:42 | XMS_ITS | Continuity of Care Document ---
Demographics Address [address] [facility] [place] [address] Home Phone Email Address Preferred Language en Marital Status Restoration Affiliation Unknown Race White Ethnic Group Unknown Author Organization [facility] Address [address] [place] [address] Phone Care Team Providers Care Nutrition Services Associate Name Role Phone Kamila Subramanian PT Unavailable Unavailable Allergies, Adverse Reactions, Alerts Substance Reaction Status Criticality latex skin irritation Active No Informati on WARNIN allergy(ies) could not be collected because the type is not supported. Please contact the source practice for further details. Medications Medication Instructions Dosage Effective Dates (start - stop) Status Comments lisinopril 20 mg tablet take 1 tablet by oral route 2 times every day 20 MG - Active metoprolol succinate ER 100 mg tablet,extended release 24 hr take 1 tablet by oral route every day 100 MG - Active hydralazine 50 mg tablet take 1 tablet by oral route 2 times every day with food 50 MG - Active Crestor 20 mg tablet take 1 tablet by oral route every day - Active Januvia 100 mg tablet take 1 tablet by oral route every day 100 MG - Active Effient 10 mg tablet take 1 tablet by oral route every day 10 MG - Active aspirin 81 mg chewable tablet chew 1 tablet by oral route every day 81 MG - Active omeprazole 20 mg capsule,delayed release take 1 capsule by oral route 2 times every day 30 minutes to 1 hour before a meal 20 MG - Active oxycodone-acetamino phen 7.5 mg-325 mg tablet take 1 tablet by oral route two times daily - Active gabapentin 100 mg capsule take 1 capsule by oral route 3 times every day 100 MG - No Longer Active Procedures Procedure Date Arthrocentesis/aspir/inj; Wen Fluoro Guidance - NonSpine Inject Joint Large Fluoro Needle NonSpine New Pt Eval 45 Min Assay of benzodiazepines Assay of amphetamine or methamphetamine Assay of barbiturates, not elsewhere spe cified Assay of cocaine or metabolite 15 Assay of methadone Opiate(s), drug and metabolites, each pr ocedure Drug confirmation, each procedure Pain Assessment And Follow Up Plan Docum ented Advance Directives Directive Yes / No Effective Date File Name No Information Encounters Encounter Description Practice Location Reason(s) For Visit Diagnoses Date Provider Providers Copied on Encounter [facility], [address], [place], [place], [id number], [place] tel:[phone] [facility] No Information Marilynn Treviño. [address], [place], [place], [id number], [place]. tel:[phone] Referring Provider: Mic Thompson MD, [address] [place], [address]. tel:[phone] [facility], [address], [place], [address], [place] tel:[phone] [facility] No Information Jun- 5 No Information [facility], [address], [place], [place], [id number], [place] tel:[phone] [facility] No Information Jun- 5 No Information Referring Provider: Mic Thompson MD, [address] [place], [address]. tel:[phone] New Pt Eval 45 Min [facility], [address], [place], [place], [id number], [place] tel:[phone] [facility] No Information 5 No Information Referring Provider: Mic Thompson MD, [address] [place], [address]. tel:[phone] Family History Family Member Type Diagnosis Age At Onset No Information Payers Payer name Insurance type Covered libertarian ID Authorcatalina vargas(s) [employer] [place] [id number] Social History Type Description Quantity Date Captured [...]
--- OUTSIDE RECORDS SUMMARY | 2024-03-31 04:42 | XMS_ITS | Encounter Summary ---
Demographics Address [address] [place] [address] Mobile Phone Email Address Preferred Language en Marital Status Bahai Affiliation Unknown Race White Ethnic Group Not or Lati no Author Organization [facility] Address [address] [place] [address] Care Team Providers Care Product Safety Coordinator Name Role Phone Nuzhat Salinas PA-C Primary Care Provider [phone] Reason for Visit * Reason Comments Med Refill Encounter Details Date Type Department Care Team (Late st Contact Info) Description 02/25/2024 Telephone [facility] [address] [facility] [address] [place] [address] Adalberto Carbajal MD [address] [place] [address] Med Refill Social History Tobacco Use Types Packs/Day Years Used Date Smoking Tobacco: Never Assessed Sex and Gender Information Value Date Recorded Sex Assigned at Not on file Gender Identity Not on file Sexual Orientation Not on file documented as of this encounter Miscellaneous Notes * Telephone Encounter - Adalberto Carbajal MD - 02/27/2024 3:24 PM CDT I will refill the torsemide. Please reach out to him and give him our new location and let him knowhe is overdue for follow-up with me. He should schedule with me at my next available appt that works for him. Thank you. -Roberto Carbajal MD * Telephone Encounter - Sobeida Escobar RN - 02/25/2024 9:09 AM CDT To [place] pt documented in this encounter Plan of Treatment Not on file documented as of this encounter Visit Diagnoses Diagnosis Stage 3b chronic kidney disease (HCC) Edema documented in this encounter Care Teams Product Safety Coordinator Relationship Specialty Start Date End Date Nuzhat Salinas PA-C [address] [facility] [place] [address] PCP - General Physician Readers' Advisory Service Librarian 01/15/22 documented as of this encounter
--- OUTSIDE RECORDS SUMMARY | 2024-03-31 04:42 | XMS_ITS | Clinical Summary ---
Demographics Address [address] [place] [address] Mobile Phone Home Phone Email Address Preferred Language Venezuelan Marital Status Unknown Sabianist Affiliation Confucianism Race White Ethnic Group Not or Lati no Author Organization [email or web address] [facility] Address [place] [address] Support Name Relationship Address Phone Amrita Womack Emergency Contact [address] [place] [address] Jazzy Womack Emergency Contact Unknown [phone] Care Team Providers Care Country Singer Name Role Phone Nuzhat Salinas Primary Care Provider [facility], [place] Unavailable [phone] Allergies Active Allergy Reactions Criticality Noted Date Comments Atorvastatin Myalgia Low 03/11/2016 Diphenhydramine Hcl Hives 12/10/2017 Ciprofloxacin Itching Low 01/13/2016 Iodinated Contrast Media Other - Describ e In Comment Field 04/22/2023 Caused kidney failure Diphenhydramine Hives High 11/30/2019 Dapagliflozin Edema,Myalgia 02/24/2024 Leg swelling and achy bones Gabapentin Anxiety,Other - Describe In Comment Field High 03/09/2016 Shakiness Hydromorphone Nausea And Vomiting High 01/22/2016 Hydroxyzine Hives,Anxiety High 05/17/2015 Latex Hives,Itching 08/03/2014 Pravastatin Myalgia High 11/23/2012 Pregabalin *Unknown 06/25/2022 Sulfa (Sulfonamide Antibiotics) Rash 12/03/2010 Valsartan Edema 09/23/2023 Medications Medication Sig Dispensed Refills Start Date End Date Status aspirin enteric coated 81 mg tablet Take 1 tablet by mouth once daily with a meal. 0 01/24/2014 Active continuous glucose monitor SENSOR KIT (FREESYLE [place])Indications:T ype 2 diabetes mellitus with diabetic peripheral angiopathy without gangrene, with long-term current use of insulin (HC) To be used to read blood sugars per threading machine setter's directions. 1 Each 07/20/2022 Active Xtampza ER 9 mg CSpA Take 1 Capsule by mouth every 12 hours. 08/13/2022 Active torsemide (DEMADEX) 20 mg tabletIndications:S tage 3b chronic kidney disease (HC),Peripheral edema Take 2 tablets in the morning and 1 tablet in the afternoon 270 Tablet 3 12/24/2022 Active famotidine (PEPCID) 40 mg tabletIndications:G astroesophageal reflux disease, unspecified whether esophagitis present Take 1 Tablet (40 mg) by mouth once daily. 90 Tablet 3 05/17/2023 Active oxyCODONE (ROXICODONE) 5 mg immediate release tablet Take 5 mg by mouth 3 times daily if needed for Pain. Active polyethylene glycol 400 (Blink Tears) 0.25 % drop Place into the eye(s) each time if needed (dry eye). Active zinc gluconate (ZINC ORAL) Take one tablet every 3rd day. Active ferrous sulfate, 65 mg elemental, (Iron) tablet Take one tablet every 3rd day. Active cholecalciferol, Vitamin D3, (Vitamin D-3) 2,000 unit tablet Take one tablet every 3rd day. Active continuous glucose monitor READER ([place]! [place])Indications:T ype 2 diabetes mellitus with diabetic peripheral angiopathy without gangrene, with long-term current use of insulin (HC) To be used to read blood sugars per threading machine setter's directions. 1 Each 10/29/2023 Active ciclopirox solution (LOPROX) 8 % solutionIndications :Onychomycosis Apply topically to affected area(s) at bedtime. 6.6 mL 10 11/04/2023 Active naftifine (NAFTIN) 2 % crea topical creamIndications:Ti leroy pedis, unspecified laterality Apply topically to affected area(s) once daily. 45 g 11/04/2023 Active continuous glucose monitor SENSOR KIT (ReduxioLE [place])Indications:T ype 2 diabetes mellitus with diabetic peripheral angiopathy without gangrene, with long-term current use of insulin (HC) To be used to read blood sugars per threading machine setter's directions. 6 Each 3 11/26/2023 Active nitroglycerin (NITROSTAT) 0.4 mg sublingual tabletIndications:N STEMI (non-ST elevated myocardial infarction) (HC) 1 TAB UNDER TONGUE EVERY 5 MIN IF NEEDED FOR CHEST PAIN. CALL MD IF USING MORE THAN 24/30 DAYS 75 Tablet 11/30/2023 Active Shower ChairIndications:Pr imary osteoarthritis of hips, bilateral For home use. 1 Each 11/30/2023 Active FreeStyle [place] 3 Sensor for continuous blood glucose monitor (CGM)Indications:Ty pe 2 diabetes mellitus with diabetic peripheral angiopathy without gangrene, with long-term current use of insulin (HC) To be used to read blood sugars per threading machine setter's directions. 1 Each 3 12/06/2023 Active carvediloL (COREG) 3.125 mg tabletIndications:H eart failure with preserved ejection fraction, unspecified HF chronicity (HC),Essential hypertension TAKE 1 TABLET (3.125 MG) BY MOUTH TWO TIMES DAILY WITH MEALS. 180 Tablet 3 01/06/2024 Active Insulin [place], Disposable, 32 gauge x /32Indications:Ty pe 2 diabetes mellitus with diabetic peripheral angiopathy without gangrene (HC) As directed. Use with 5-6 times a day insulin. As covered by insurance. Remove the 2 covers on the insulin pen needle before administering insulin dose. 500 Each 3 01/07/2024 Active isosorbide mononitrate (IMDUR) 30 mg extended release tablet 24 HourIndications:Hea rt failure, unspecified HF chronicity, unspecified heart failure type (HC) Take 1 Tablet (30 mg) by mouth once daily. 30 Tablet 11 01/21/2024 Active clopidogreL (PLAVIX) 75 mg tabletIndications:N STEMI (non-ST elevated myocardial infarction) (HC) TAKE 1 TABLET BY MOUTH ONCE DAILY. 90 Tablet 3 01/24/2024 Active rosuvastatin (CRESTOR) 40 mg tabletIndications:S /P CABG x 2,Coronary artery disease involving dot [place] coronary artery of [place] heart without angina pectoris TAKE 1 TABLET BY MOUTH AT BEDTIME 90 Tablet 2 01/26/2024 Active insulin glargine, U-100, (Lantus Solostar U-100 Insulin) 100 unit/mL (3 mL) penIndications:Type 2 diabetes mellitus with diabetic peripheral angiopathy without gangrene, with long-term current use of insulin (HC) Product desired: LANTUS SOLOSTARINJECT 50 UNITS EVERY MORNING AND 30 UNITS AT BEDTIME SUBCUTANEOUSLY. STRENGTH: 100 UNIT/ML (3 ML) 90 mL 02/11/2024 Active insulin lispro, U-100, (HumaLOG KwikPen Insulin) 100 unit/mL inpn penIndications:Type 2 diabetes mellitus with diabetic peripheral angiopathy without gangrene, with long-term current use of insulin (HC) Inject 12-14 units 3-4x/day. Product desired: HUMALOG KWIKPENINJECT 12 TO 14 UNITS 3 TO 4 TIMES PER DAY 45 Each 1 02/11/2024 Active empagliflozin (JARDIANCE) 10 mg tabletIndications:T ype 2 diabetes mellitus with diabetic peripheral angiopathy without gangrene, with long-term current use of insulin (HC) Take 1 Tablet (10 mg) by mouth once daily. 30 Tablet 3 02/11/2024 Active Active Problems Problem Noted Date Diagnosed Date Wound of right leg 03/02/2024 Primary osteoarthritis of left hip 09/21/2023 Stasis ulcer of left lower extremity 09/17/2023 Diabetes mellitus, type 2 08/12/2023 NSTEMI (non-ST elevated myocardial infarction) 1 10/12/2022 Hyperlipidemia 08/12/2023 (HFpEF) heart failure with preserved ejection fr action 08/12/2023 Stasis ulcer of right lower extremity 11/02/2022 Secondary hyperparathyroidism of renal origin DDD (degenerative disc disease), lumbar 08/09/20 Pain medication agreement broken 08/08/2018 Overview: 08/08/18 [facility] Lymphedema 04/29/2018 Gastroesophageal reflux disease 04/29/2016 Stage 3b chronic kidney disease 01/13/2016 Chronic pain syndrome 09/18/2015 Coronary artery disease Overview: 2018: coronary artery bypass graft Primary osteoarthritis of hips, bilateral Chronic, continuous use of opioids Morbid obesity with BMI of 45.0-49.9, adult Resolved Problems Problem Noted Date Diagnosed Date Resolved Date Detachment of nail 01/21/2023 Acute on chronic combined sy stolic and diastolic heart failure 11/02/2022 08/12/2023 Type 2 diabetes mellitus wit h both eyes affected by proliferative retinopathy and macular edema, with long-term current use of insulin 11/02/2022 08/12/2023 Stasis ulcer of right lower extremity 03/19/2022 08/12/2023 Stasis ulcer of left lower extremity 03/19/2022 08/12/2023 Opioid withdrawal 09/08/2021 11/28/2021 Type 2 diabetes mellitus wit h diabetic peripheral angiopathy without gangrene, with long-term current use of insulin 09/08/2021 023 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, with long-term current use of insulin 09/08/2021 08/12/2023 Bilateral hip joint arthritis 08/09/2019 08/12/2023 Overview: Moderate Essential hypertension 07/29/201808/12 Leg wound, left 04/29/2018 06/13/2018 Overview: Left medial leg just above the ankle Uncontrolled type 2 diabetes mellitus with both eyes affected by moderate nonproliferative retinopathy and macular edema, with long-term current use of insulin 03/17/2018 08/12/2023 Hx of CABG 03/16/2018 08/12/2023 Overview: CABG 03/02/2018 LEAVITT to left anterior descending; saphenous vein to diagonal branch. Lifelong aspirin 81 mg daily. Plavix for 12 months. S/P CABG x 2 03/02/2018 08/12/2023 Overview: S/p off pump CAB x 2 03/02/18 Dr. Montgomery Leg wound, right 11/29/2017 08/12/2023 Overview: Posterior calf Morbid obesity with BMI of 40.0-44.9, adult 05/17/2016 08/12/2023 Chronic ulcer of left leg, l imited to breakdown of skin 01/31/2016 06/05/2016 Benign non-nodular prostatic hyperplasia with lower urinary tract symptoms 01/30/2016 08/12/2023 Coronary artery disease invo lving dot lake coronary artery of [place] heart without angina pectoris 11/15/2015 08/12/2023 Vitamin D deficiency 10/18/2015 023 Peripheral edema 10/02/2015 08/12/2023 Primary osteoarthritis of both hips 07/05/2015 08/12/2023 PETER 03/04/2015 AHI-71, CSI- >50 04/01/2015 08/12/2023 Central sleep apnea 04/01/2015 08/12/20 23 Overview: He reports he could not tolerate CPAP so he returned it. He thinks that since he stopped drinking alcohol his sleep has been much better. He thinks he no longer has sleep apnea. Acute coronary syndrome 08/04/201406/05 CAD s/p reccurent NSTEMI with stents 08/04/2014 03/05/2018 NSTEMI (non-ST elevated myoc ardial infarction) 01/27/2014 08/12/2023 Overview: Peak troponin 3.3 One drug eluting stent placed in proximal circumflex. Diffuse disease in left anterior descending and elsewhere. Ejection fraction after IL 60-65%. HTN (hypertension) 12/03/2010 8 Hemorrhage anterior chamber eye 08/12/2023 Overview: happened twice sep 2013 Chest wall pain following surgery 08/12/2023 Chronic left hip pain 2022 Encounters Date Type Department Care Team Description 03/28/2024 Telephone [facility] - [place] [address] [facility] [address] [place] [address] Delores Chao RN Questions 03/20/2024 12:05 AM CDT - 03/20/2024 3:[address] [facility] Emergency Department [address] [place] [address] Edilson Soto MD Wound of right lower extremity, subsequent encounter (Primary Dx) Discharge Disposition: Home Self Care 03/20/2024 Travel 03/02/2024 1:00 PM CDT Office Visit [facility] [address] [place] [address] Wound Check 03/02/2024 Travel 02/25/2024 Telephone [facility] - [facility] - [place] [address] [place] [phone] Dariana Orozco, scientific systems analyst Nurse Navigator (Reschedule surgery) 02/16/2024 9:10 AM CDT Office Visit [facility] [address] [place] [address] Latha Cabrera, Derm Problem (Spot on right leg possibly infected 1 day) 02/16/2024 Telephone [facility] [address] [facility] [address] [place] [address] Oj Ceja PA Results 02/16/2024 Travel 02/15/2024 Nurse Triage [facility] [address] [place] [address] Nuzhat Salinas PA Infection 02/11/2024 10:50 AM CDT Office Visit [facility] [address] [place] [address] Nuzhat Salinas PA Medication Management (Stopped taking Farxiga due to side effects - ) 02/11/2024 Travel 02/07/2024 2:00 PM CDT Orders Only [address] [place] [address] 1 scan: (1-Ord) ECHO TTE COMPLETE W CONTRAST ([id number]) 02/07/2024 Travel 02/02/2024 Telephone [facility] [address] [place] [address] Nuzhat Salinas PA Questions 01/26/2024 Refill [facility] [address] [place] [address] Nuzhat Salinas PA Refill Request (Rosuvastatin) 01/23/[address] [place] [address] Mic Baldwin MD Refill Request (Clopidogrel) 01/21/2024 Telephone [facility] [address] [facility] [address] [place] [address] Oj Ceja PA Medication Management 01/20/2024 Telephone [facility] [address] [place] [phone] Oj Ceja PA Medication Reaction 01/18/2024 Telephone [facility] Joint Replacement [facility] [address] [place] [address] Dariana Orozco, scientific systems analyst Nurse Navigator (Cardiac clearance) 01/17/2024 2:20 PM CDT Office Visit [facility] [address] [place] [phone] Oj Ceja PA CV General Cardiology Est ([facility] Clearance--for hip surgery//PCP:POOJA Adkins/) 01/17/2024 Telephone [facility] [address] [facility] [address] [place] [address] Oj Ceja PA Follow Up (SGLT2 Coverage) 01/17/2024 Travel 01/13/2024 Hospital Encounter [facility] [address] [place] [address] Mic Soni MD 01/12/2024 Telephone [facility]placement [facility] [address] [place] [address] Breanna Bright, staffing recruiter Scheduled 01/11/2024 Telephone [facility] Joint [facility] [address] [place] [address] Dariana Orozco, scientific systems analyst Nurse Navigator (Questions) 01/07/2024 Telephone [facility] [address] [place] [address] Delores Chao RN Results 01/06/2024 Refill [facility] [address] [place] [address] Mic Baldwin MD Refill Request (Carvedilol) 01/06/2024 Refill [facility] [address] [facility] [place] [address] Nuzhat Salinas PA Refill Request (Lantus Solostar U-100 Insulin, Pen needles) 01/04/2024 Telephone [facility] Orthoped[facility] - [facility] [address] [facility] [address] [place] [address] Dariana Orozco RN Ortho Nurse Navigator (Pre-op check in ) from Last 3 Months Immunizations Name Administration Dates Next Due COVID-19 vaccine (Pfizer-Bio NTech 30mcg/0.3mL) 12YO+ BIVALENT PF, MDV 07/02/2022 COVID-19 vaccine (Pfizer-Bio NTech 30mcg/0.3mL) PF, MDV 12/30/2020,12/09/2020,12/06/2020 DT (Age < 7 years) 01/02/1986 Hepatitis B (Adult) 06/26/2014,02/05/2014,2013 Influenza A (H1N1), Inactivated 10/21/2009 Influenza Virus, Unspecified 08/15/2010,06/05/20 09 Influenza, IIV3 (Age >=3 years) 08/28/20 13,07/15/2012,08/10/2011,1994 Influenza, IIV4 08/09/2019, 8,08/20/2017,2016,07/23/2015,06/26/2014,10/21/2009 Influenza, Inactivated AIIV4 (Age 65+ Years) Preserv Free 08/24/2022,06/26/2020 Pneumococcal Poly,23-Valent (Pneumovax) 08/23/1995 Td (Age >=7 Years) 11/23/1996 Tdap 10/26/2022,07/23/2010,06/05/2009 Family History Medical History Relation Name Comments Cancer Father of lung ca ncer at 72 Heart Disease Father Heart Disease Mother Other Mother of old age and kidney failure Diabetes Sister Anesthesia Problem No Family History Relation Name Status Comments Father Mother Sister Social History Tobacco Use Types Packs/Day Years Used Date Smoking Tobacco: Former Cigars Q uit: 01/27/2014 Smokeless Tobacco: Never Tobacco Cessation:Counseling Given: Yes Comments:when he smoked it was a cigar weekly for 8 years in summer Alcohol Use Standard Drinks/Week Comments Not Currently 0 (1 standard drink = 0.6 oz pur e alcohol) PHQ-2 Answer Date Recorded PHQ-2 TOTAL SCORE 0 03/19/2021 Social Connections Answer Date Recorded Frequency of Communication with Friends and Fami ly 0 07/13/2023 Financial Resource Strain Answer Date R ecorded Difficulty of Paying Living Expenses 3 07/13/2023 Difficulty of Paying Living Expenses Not on file 07/13/2023 Food Insecurity Answer Date Recorded Worried About Running Out of Food in the Last Ye ar 1 07/13/2023 Transportation Needs Answer Date Record ed Lack of Transportation (Medical) 2 07/13/2023 Housing Stability Answer Date Recorded Unable to Pay for Housing in the Last Year 1 07/13/2023 Sex and Gender Information Value Date Recorded Sex Assigned at Not on file Gender Identity Not on file Sexual Orientation Not on file Obstetrics History Last Filed Vital Signs Vital Sign Reading Time Taken Comments Blood Pressure 153/68 03/20/2024 12:03 AM CDT Pulse 70 03/20/2024 12:03 AM CDT Temperature 36.8 ??C (98.3 ??F) 03/20/2024 12:03 AM C DT Respiratory Rate 18 03/20/2024 12:03 AM CDT Oxygen Saturation 95% 03/20/2024 12:03 AM CDT Inhaled Oxygen Concentration - - Weight 142.9 kg (315 lb) 03/20/2024 12:03 AM CDT Height 177.8 cm (5' 10) 03/20/2024 12:03 AM CDT Body Mass Index 45.2 03/20/2024 12:03 AM CDT Plan of Treatment Upcoming Encounters Date Type Department Care Team (Late st Contact Info) Description 04/03/2024 2:40 PM CDT Office Visit [facility] [address] [place] [address] Nuzhat Salinas PA [address] [place] [address] 04/13/2024 1:00 PM CDT Office Visit [facility] [address] [place] [address] Health Maintenance Due Date Last Done Comments Pneumococcal series for age 65+ (2 of 2 - PCV) 08/23/1996 08/23/1995 Zoster (shingles) series for age 50+ (1 of 2) 2005 Fecal testing non-DNA (FIT,FOBT,iFOBT) for age 45-75 03/06/2020 03/06/2019 AAA screening age 65-74 2020 Medicare Wellness for age 65+ 2020 Depression screening for age 12+ 03/19/2022 03/19/2021, 07/05/2019, 07/03/2019, Additional history exists COVID-19 vaccine series (2022- season) 2023 07/02/2022, 07/14/2021, 12/30/2020, Additional history exists Influenza for age 65+ 06/04/2024 08/24/2022 , 06/26/2020, 08/09/2019, Additional history exists BMI (ht and wt on same day) for age 18+ 09/23/2024 09/23/2023, 07/18/2021, 05/13/2021, Additional history exists Lipids for age 45-75 08/13/2028 08/13/2023, 05/17/2023, 12/29/2021, Additional history exists Tetanus booster 10/26/2032 10/26/2022, 07/05, 06/05/2009, Additional history exists Hepatitis C screening for ag e 18-79 Completed 03/02/2018, 02/15/2017, 11/15/2014 Tdap Completed 10/26/2022, 07/05, 06/05/2009 Procedures Procedure Name Priority Date/Time Associated Diagnosis Comments C-REACTIVE PROTEIN STAT 03/20/2024 1: 21 AM CDT SEDIMENTATION RATE STAT 03/20/2024 1: 21 AM CDT BASIC METABOLIC PANEL STAT 03/20/2024 1:21 AM CDT CBC W PLT NO DIFF STAT 03/20/2024 1:2 1 AM CDT ECHO TTE COMPLETE W CONTRAST Routine 02/07/2024 2:49 PM CDT NSTEMI (non-ST elevated myocardial infarction) (HC) EKG 12 LEAD Routine 01/17/2024 1:56 PM CDT NSTEMI (non-ST elevated myocardial infarction) (HC) LIPID PANEL Early AM 08/13/2023 6:54 AM CIGAR MAKING SUPERVISOR OCCULT BLOOD IFOBT STOOL Routine 03/06/2019 7:41 AM CDT Screening for colorectal cancer EXPOSURE (BBF) ANTI HCV STAT 03/02/2018 10:45 AM CDT from Last 3 Months or Most Recently Relevant to Health Maintenance Results * (ABNORMAL) SEDIMENTATION RATE (03/20/2024 1:21 AM CDT) Pathologist [facility] SEDIMENTATION RATE 53(H) <20 mm/hr 2023 2:24 AM CDT [facility] Blood BLOOD SPECIMEN / Unknown Venipuncture / Unknown 03/20/2024 1:21 AM CDT 03/20/2024 1:49 AM CDT Edilson Soto MD [facility] [address] [place] [address], * (ABNORMAL) CBC W PLT NO DIFF (03/20/2024 1:21 AM CDT) WHITE BLOOD COUNT 10.5 4.5 - 11.0 thou/cu mm 03/20/2024 1:53 AM CDT [facility] RED BLOOD COUNT 4.66 4.30 - 5.90 mil/cu mm 03/20/2024 1:53 AM CDT [facility] HEMOGLOBIN 12.8(L) 13.5 - 17.5 g/dL 03/20/2024 1:53 AM CDT [facility] HEMATOCRIT 41.4 37.0 - 53.0 % 03/20/2024 1:53 AM CDT [facility] MCV 89 80 - 100 fL 03/20/2024 1:53 AM CDT [facility] MCH 27.5 26.0 - 34.0 pg 03/20/2024 1:53 AM CDT [facility] MCHC 30.9(L) 32.0 - 36.0 g/dL 03/20/2024 1:53 AM CDT [facility] RDW 14.2 11.5 - 15.5 % 03/20/2024 1:53 AM CDT [facility] PLATELET COUNT 263 140 - 440 thou/cu mm 03/20/2024 1:53 AM CDT [facility] MPV 10.1 6.5 - 11.0 fL 03/20/2024 1:53 AM CDT [facility] NRBC 0.0 % 03/20/2024 1:53 AM CDT [facility] ABS NRBC 0.0 thou /cu mm 03/20/2024 1:53 AM CDT [facility] Blood BLOOD SPECIMEN / Unknown Venipuncture / Unknown 03/20/2024 1:21 AM CDT 03/20/2024 1:49 AM CDT Edilson Soto MD [facility] [address] [place] [address], * (ABNORMAL) C-REACTIVE PROTEIN (03/20/2024 1:21 AM CDT) Pathologist [facility] C-REACTIVE PROTEIN 0.5(H) <0.5 mg/dL 03/20/2024 2:18 AM CDT [facility] Blood BLOOD SPECIMEN / Unknown Venipuncture / Unknown 03/20/2024 1:21 AM CDT 03/20/2024 1:49 AM CDT Edilson Soto MD SPEEDER MACHINE OPERATOR RY [facility] [address] [place] [address], * (ABNORMAL) BASIC METABOLIC PANEL (03/20/2024 1:21 AM CDT) Pathologist [facility] SODIUM 140 136 - 145 mmol/L 03/20/2024 2:18 AM CDT [facility] POTASSIUM 4.6 3.5 - 5.1 mmol/L 03/20/2024 2:18 AM T [facility] CHLORIDE 100 98 - 107 mmol/L 03/20/2024 2:18 AM T [facility] CO2,TOTAL 30(H) 22 - 29 mmol/L 03/20/2024 2:18 AM T [facility] ANION GAP 10 5 - 18 03/20/2024 2:18 AM T [facility] GLUCOSE 271(H) 70 - 99 mg/dL 03/20/2024 2:18 AM T [facility] CALCIUM 9.0 8.8 - 10.2 mg/dL 03/20/2024 2:18 AM T [facility] BUN 35(H) 8 - 23 mg/dL 03/20/2024 2:18 AM T [facility] CREATININE 2.02(H) 0.70 - 1.20 mg/dL 03/20/2024 2:18 AM T [facility] BUN/CREAT RATIO 17 10 - 20 2:18 AM CDT [facility] eGFR 35(L) >90 mL/min/1.7 3m2 03/20/2024 2:18 AM CDT [facility] Comment:As of 2021, eG FR is calculated by the CKD-EPI creatinine equation without race adjustment. ??eGFR can be influenced by muscle mass, exercise, and diet. ??The reported eGFR is an estimation only and is only applicable if the renal function is stable. Blood BLOOD SPECIMEN / Unknown Venipuncture / Unknown 03/20/2024 1:21 AM CDT 03/20/2024 1:49 AM CDT Edilson Soto MD SPEEDER MACHINE OPERATOR RY [facility] [address] [place] [address], * ECHO TTE COMPLETE W CONTRAST (02/07/2024 2:49 PM CDT) AORTIC VALVE MEAN PG 4 mmHg LVEDD 5.2 cm EJECTION FRACTION 55 - 60% Anatomical Region Laterality Modality Ultrasound 02/07/2024 2:01 PM CDT Narrative 02/18/2024 3:33 PM CDT ECHOCARDIOGRAM JACINTO WOMACK ?Accession#: ?? [id number] : ?1955 68 years Study Date: ?? 02/07/2024 2:01:45 PM Gender: M ? BP: ? 0/0 mmHg Height: 175.00 cm ? BSA: ?2.50 m? ? ? Weight: 143.00 kg ? Tech: ? RMB ?Referring MD: OJ CEJA Site: ? I - Yaquelin Frausto Reading Location: [facility] EP Patient Location: Procedure: 2D w/ Contrast, Color Doppler and Spectral Doppler. Indication for study: NSTEMI Cardiac Rhythm: Regular.Study quality: Technically limited. Imaging limitations: This study was subject to imaging limitations due to body habitus, a prominent lung artifact and lying in a supine position. Final Impressions: 1. Technically limited exam. 2. Normal LV size, mildly increased wall thickness, normal global systolic function with an estimated EF of 55 - 60%. 3. Right ventricular cavity size is not well visualized, global systolic RV function is not well visualized. 4. The aortic valve is trileaflet and sclerotic, no stenosis and no regurgitation. 5. The mitral valve is sclerotic, trace mitral regurgitation. 6. Mitral stenosis with mildly increased mean gradient of 2.7 mmHg at a heart rate of 77. 7. Severe MAC present. 8. Echo contrast was administered to enhance visualization of all left ventricular segments. Chamber Sizes and Function Normal left ventricular size, mildly increased wall thickness, normal global systolic function with an estimated EF of 55 - 60%. Left ventricular wall motion not well visualized. Left atrial size is not well visualized. Right ventricular cavity size is not well visualized, global systolic RV function is not well visualized. The right atrium is not well visualized. The pulmonary artery is not well visualized. The sinus of Valsalva is normal for age/sex/bsa. The ascending aorta is normal sized. Valves, RV Pressures and Diastolic Function The aortic valve is trileaflet and sclerotic, no stenosis and no regurgitation. The mitral valve is sclerotic, trace mitral regurgitation. Severe mitral annular calcification is present. A mildly increased gradient of 2.7 mmHg at a heart rate of 77 is calculated across the mitral valve using continuous Doppler examination. Indeterminate pattern of LV diastolic filling. The tricuspid valve is not well visualized. Tricuspid regurgitation is regurgitation is not well visualized. The pulmonic valve is not well visualized. Trace pulmonary regurgitation. Masses, Effusion, Shunts There is no pericardial effusion. The inferior vena cava is normal sized, respiratory size variation less than 50%. Interatrial septum is not well visualized. MEASUREMENTS AND CALCULATIONS 2-D Measurements and LV Function: LVID (d) 5.2 cm LV FS% (2D) ?? 14 % LVID (s) 4.4 cm LVOT diameter 2.3 cm IVS (d) ??1.3 cm HR ?80 bpm LVPW (d) 1.2 cm LA Vol index ??42 ml/m2 Ao Sinus 4.0 cm Asc Ao ?? 3.2 cm LA ? 5.5 cm Diastology: Mitral ?Tissue Doppler E Peak 1.0 m/s ??e', Septum ? 0.05 m/s A Peak 1.0 m/s ??e', Lateral ?0.15 m/s E/A ?1.0 ?E/e' Average ?? 9.64 DT ? 125 msec Aortic Valve: Vmax ? 1.3 m/s ??TATY (V) ?? 2.42 cm? ? ? VTI ?0.29 m ?? TATY (I) ?? 2.31 cm? ? ? LVOT V max 0.8 m/s ??Max PG ?7 mmHg LVOT VTI ?? 0.16 m ?? Mean PG ?? 4 mmHg SV ? 66 ml ?Dim Index 0.58 SV index ?? 26 ml/m? ? ? CO ?5.3 l/min ?CI ?2.1 l/min/m? ? ? Mitral Valve: MVA ? 6.1 cm? ? ? MV P 1/2 ??36 msec MV Mean G 3 mmHg MV VTI ?0.22 m Contrast documentation: 2.5 ml diluted Definity, lot #[id number], [facility]# [id number] was administered peripherally to enhance visualization of all left ventricular segments. . This study was interpreted by an [facility] accredited facility. ??Final ?? Procedure Note Isauro Frank MD - 02/18/2024 ECHOCARDIOGRAM JACINTO WOMACK : 1955 68 years Study Date: 02/07/2024 2:01:45 PM Gender: M BP: 0/0 mmHg Height: 175.00 cm BSA: 2.50 m? ? ? Weight: 143.00 kg Tech: [facility] Referring MD: OJ CEJA Site: [facility] Reading Location: [facility] Patient Location: Procedure: 2D w/ Contrast, Color Doppler and Spectral Doppler. Indication for study: NSTEMI Cardiac Rhythm: Regular.Study quality: Technically limited. Imaging limitations: This study was subject to imaging limitations due tobody habitus, a prominent lung artifact and lying in a supine position. Final Impressions: 1. Technically limited exam. 2. Normal LV size, mildly increased wall thickness, normal globalsystolic function with an estimated EF of 55 - 60%. 3. Right ventricular cavity size is not well visualized, global systolicRV function is not well visualized. 4. The aortic valve is trileaflet and sclerotic, no stenosis and noregurgitation. 5. The mitral valve is sclerotic, trace mitral regurgitation. 6. Mitral stenosis with mildly increased mean gradient of 2.7 mmHg at aheart rate of 77. 7. Severe MAC present. 8. Echo contrast was administered to enhance visualization of all leftventricular segments. Chamber Sizes and Function Normal left ventricular size, mildly increased wall thickness, normalglobal systolic function with an estimated EF of 55 - 60%. Leftventricular wall motion not well visualized. Left atrial size is not wellvisualized. Right ventricular cavity size is not well visualized, globalsystolic RV function is not well visualized. The right atrium is not wellvisualized. The pulmonary artery is not well visualized. The sinus ofValsalva is normal for age/sex/bsa. The ascending aorta is normal sized. Valves, RV Pressures and Diastolic Function The aortic valve is trileaflet and sclerotic, no stenosis and noregurgitation. The mitral valve is sclerotic, trace mitral regurgitation.Severe mitral annular calcification is present. A mildly increasedgradient of 2.7 mmHg at a heart rate of 77 is calculated across the mitralvalve using continuous Doppler examination. Indeterminate pattern of LV diastolic filling. The tricuspid valve is notwell visualized. Tricuspid regurgitation is regurgitation is not wellvisualized. The pulmonic valve is not well visualized. Trace pulmonaryregurgitation. Masses, Effusion, Shunts There is no pericardial effusion. The inferior vena cava is normal sized,respiratory size variation less than 50%. Interatrial septum is not wellvisualized. MEASUREMENTS AND CALCULATIONS 2-D Measurements and LV Function: LVID (d) 5.2 cm LV FS% (2D) 14 % LVID (s) 4.4 cm LVOT diameter 2.3 cm IVS (d) 1.3 cm HR 80 bpm LVPW (d) 1.2 cm LA Vol index 42 ml/m2 Ao Sinus 4.0 cm Asc Ao 3.2 cm LA 5.5 cm Diastology: Mitral Tissue Doppler E Peak 1.0 m/s e', Septum 0.05 m/s A Peak 1.0 m/s e', Lateral 0.15 m/s E/A 1.0 E/e' Average 9.64 DT 125 msec Aortic Valve: Vmax 1.3 m/s TATY (V) 2.42 cm? ? ? VTI 0.29 m TATY (I) 2.31 cm? ? ? LVOT V max 0.8 m/s Max PG 7 mmHg LVOT VTI 0.16 m Mean PG 4 mmHg SV 66 ml Dim Index 0.58 SV index 26 ml/m? ? ? CO 5.3 l/min CI 2.1 l/min/m? ? ? Mitral Valve: MVA 6.1 cm? ? ? MV P 1/2 36 msec MV Mean G 3 mmHg MV VTI 0.22 m Contrast documentation: 2.5 ml diluted Definity, lot #[id number], [facility]#[id number] was administered peripherally to enhance visualization of allleft ventricular segments. . This study was interpreted by an [facility] accredited facility. Final [facility] ECHO ORD * EKG 12 LEAD (01/17/2024 1:56 PM CDT) Interpretation Sinus rhythm with 1st degree A-V block Right bundle branch block Inferior infarct , age undetermined Cannot rule out Anterior infarct , age undetermined Abnormal ECG Ventricular Rate 73 BPM Atrial Rate 73 BPM P-R Interval 246 ms QRS Duration 118 ms QT 424 ms QTc 467 ms P Perry 19 degrees R Perry -20 degrees T Perry 88 degrees 01/17/2024 1:56 PM CDT 01/18/2024 10:10 AM CDT [facility] EKG ORD * Lipid Panel - In AM (08/13/2023 6:54 AM CIGAR MAKING SUPERVISOR) CHOLESTEROL,TOTAL 127 100 - 199 mg/dL 08/13/2023 8:30 AM CIGAR MAKING SUPERVISOR [facility] [employer] [facility] Comment: Cholesterol, Total Reference Ranges Desirable <200 mg/dL Borderline 200-239 mg/dL High >=240 mg/dL TRIGLYCERIDES 126 <150 mg/dL 08/13/2023 8:30 AM CIGAR MAKING SUPERVISOR [facility] HDL CHOLESTEROL 47 >40 mg/dL 8:30 AM CIGAR MAKING SUPERVISOR [facility] NON-HDL CHOLESTEROL 80 <145 mg/dl 08/13/2023 8:30 AM CIGAR MAKING SUPERVISOR [facility] CHOL/HDL RATIO 2.70 <4.50 08/13/2023 8:30 AM CIGAR MAKING SUPERVISOR [facility] LDL CHOLESTEROL 55 <=130 mg/dL 08/13/2023 8:30 AM CIGAR MAKING SUPERVISOR [facility] VLDL CHOLESTEROL 25 <=30 mg/dL 08/13/2023 8:30 AM CIGAR MAKING SUPERVISOR [facility] PROVIDER ORDERED STATUS RANDOM 08/13/2023 8:30 AM CIGAR MAKING SUPERVISOR [facility] Blood BLOOD SPECIMEN / Unknown Venipuncture / Unknown 08/13/2023 6:54 AM CIGAR MAKING SUPERVISOR 08/13/2023 7:28 AM CIGAR MAKING SUPERVISOR Candido Perdomo MD CHEMISTRY [facility] [address] [place] [address], * OCCULT BLOOD IFOBT STOOL (03/06/2019 7:41 AM CDT) STOOL BLOOD ,IFOBT Negative Negative 03/08/2019 11:30 AM CDT [facility] Stool STOOL SPECIMEN / Unknown Non-Blood / Unknown 03/06/2019 7:41 AM CDT 03/07/2019 7:42 AM CDT Mic Thompson MD LABORAT[facility] [address] [place] [address], * Patient Source ANTI HCV (03/02/2018 10:45 AM CDT) HEPATITIS C ANTIBODY Non-React naina Non-React naina 03/02/2018 11:43 AM CDT [facility] Comment:Antibodies to HCV no t detected; does not exclude the possibility of exposure to HCV. Blood BLOOD SPECIMEN / Unknown Non-Lab Venipuncture / Unknown 03/02/2018 10:45 AM CDT 03/02/2018 10:56 AM CDT Arnie Montgomery MD SEND OUTS [facility] [address] [place] [address], [place] from Last 3 Months or Most Recently Relevant to Health Maintenance Guarantor Name Account Type Relation to Patient Date of Phone Billing Address Jacinto Womack Personal/Family Self 1955 [address] [place] [address] Jacinto Womack Personal/Family Self 1955 [address] [place] [address] Jacinto Womack Personal/Family Self 1955 [address] [place] [address] Advance Directives * Full Code (Latest Code Status on File) Date Activated Date Inactivated Comments 08/12/2023 7:31 AM 08/13/2023 4:18 PM Question Answer Comments Code Status Discussion: Reviewed Preferences * Full Code Date Activated Date Inactivated Comments 12/29/2021 7:25 PM 01/30/2022 5:30 PM Question Answer Comments Code Status Discussion: Reviewed Preferences * Full Code Date Activated Date Inactivated Comments 08/01/2018 7:45 AM 08/01/2018 1:16 PM * Full Code Date Activated Date Inactivated Comments 02/23/2018 12:05 PM 03/10/2018 3:33 PM Question Answer Comments Code Status Discussion: Not Discussed * Full Code Date Activated Date Inactivated Comments 11/29/2017 10:10 AM 11/30/2017 2:20 AM Care Teams Country Singer Relationship Specialty Start Date End Date Nuzhat Salinas PA [facility] [place] [address] PCP - General Physician Pressure Vessel Inspector 09/05/21 [facility] [address] [place] [address] 12/17/21
== END 2024-03-19 22:49 | disposition home or self-care (01) ==
LOC: AMB 03-31 04:40
PROVIDERS: PCP Physician Assistant Medical; Visit Provider Family Medicine
DX: S91.001A Unspecified open wound, right ankle, initial encounter (principal)
CPT/HCPCS: A0425; A0429

== ENCOUNTER 2024-06-30 22:59 | Outpatient (CLI) | payer MEDICARE, MEDICAID, SELFPAY ==
--- OUTSIDE RECORDS SUMMARY | 2024-07-02 06:50 | XMS_ITS | Encounter Summary ---
Demographics Address [address] [place] [address] Mobile Phone Email Address Preferred Language en Marital Status Hoahaoism Affiliation Unknown Race White Ethnic Group Not or Lati no Author Organization [facility] Address [address] [place] [address] Care Team Providers Care Utility Arborist Name Role Phone Nuzhat Salinas PA-C Primary Care Provider [phone] Encounter Details Date Type Department Care Team (Late Contact Info) Description 06/30/2024 Office Communication [facility] [address] [place] [address] Adalberto Carbajal MD [address] [place] [address] Social History Tobacco Use Types [...] encounter Miscellaneous Notes * Telephone Encounter - Edilson Mabry - 06/30/2024 3:14 PM CDT Patient was called to collect copay for their upcoming visit, patient requested that they be billedfor visit. documented in this encounter Plan of Treatment Upcoming Encounters Date Type Department Care Team (Late Contact Info) Description 07/03/2024 2:00 PM EDT Office Visit [facility] [address] [place] [id number] Adalberto Carbajal MD [address] [place] [address] documented as of this encounter Visit Diagnoses Not on filedocumented in this encounter Care Teams Utility Arborist Relationship Specialty Start Date End Date Nuzhat Salinas PA-C [address] [place] [address] PCP - General Physician Utility Arborist 01/15/22 documented as of this encounter
--- OUTSIDE RECORDS SUMMARY | 2024-07-02 06:50 | XMS_ITS | Clinical Summary ---
Demographics Address [address] [place] [address] Mobile Phone Home Phone Email Address Preferred Language Urdu Marital Status Unknown Islam Affiliation Jain Race White Ethnic Group Not or Lati no Author Organization [facility] Address [place] [phone] Support Name Relationship Address Phone Amrita Womack Emergency Contact [address] [place] [address] Jazzy Womack Emergency Contact Unknown Care Team Providers Care Professor Of Business Name Role Phone Nuzhat Salinas Primary Care Provider [facility], [place] Unavailable [phone] Allergies Active Allergy Reactions Criticality Noted Date [...] mouth once daily with a meal. 0 01/25/20 14 Suspended continuous glucose monitor SENSOR KIT (FREESYLE [place])Indications: Type 2 diabetes mellitus with diabetic peripheral angiopathy without gangrene, with long-term current use of insulin (HC) To be used to read blood sugars per aeronautical inspector's directions. 1 Each 07/20/20 Suspended Additional Information Xtampza ER 9 mg CSpA Take 1 Capsule by mouth every 12 hours. 08/13/20 Suspended torsemide (DEMADEX) 20 mg tabletIndications: Stage 3b chronic kidney disease (HC),Peripheral edema Take 2 tablets in the morning and 1 tablet in the afternoon 270 Tablet 3 12/25/19 23 Suspended Additional Information famotidine (PEPCID) 40 mg tabletIndications: Gastroesophageal reflux disease, unspecified whether esophagitis present Take 1 Tablet (40 mg) by mouth once daily. 90 Tablet 3 05/17/20 23 024 Discontinued oxyCODONE (ROXICODONE) 5 mg immediate release tablet Take 5 mg by mouth 3 times daily if needed for Pain. Suspended polyethylene glycol 400 (Blink Tears) 0.25 % drop Place into the eye(s) each time if needed (dry eye). Suspended zinc gluconate (ZINC ORAL) Take one tablet every 3rd day. Suspended ferrous sulfate, 65 mg elemental, (Iron) tablet Take one tablet every 3rd day. Suspended cholecalciferol, Vitamin D3, (Vitamin D-3) 2,000 unit tablet Take one tablet every 3rd day. Suspended continuous glucose monitor READER ([place]unch [place])Indications: Type 2 diabetes mellitus with diabetic peripheral angiopathy without gangrene, with long-term current use of insulin (HC) To be used to read blood sugars per aeronautical inspector's directions. 1 Each 10/29/19 Suspended Additional Information ciclopirox solution (LOPROX) 8 % solutionIndication s:Onychomycosis Apply topically to affected area(s) at bedtime. 6.6 mL 11/04/19 024 Discontinued(Ph armacist change per medication history (E-cancel not sent)) naftifine (NAFTIN) 2 % crea topical creamIndications:T inea pedis, unspecified laterality Apply topically to affected area(s) once daily. 45 g 11/04/19 24 024 Discontinued(Ph armacist change per medication history (E-cancel not sent)) continuous glucose monitor SENSOR KIT (GameriusLE [place])Indications: Type 2 diabetes mellitus with diabetic peripheral angiopathy without gangrene, with long-term current use of insulin (HC) To be used to read blood sugars per aeronautical inspector's directions. 6 Each 11/26/19 24 Suspended Additional Information nitroglycerin (NITROSTAT) 0.4 mg sublingual tabletIndications: NSTEMI (non-ST elevated myocardial infarction) (HC) 1 TAB UNDER TONGUE EVERY 5 MIN IF NEEDED FOR CHEST PAIN. CALL MD IF USING MORE THAN 2430 DAYS 75 Tablet 11/30/19 Suspended Additional Information Shower ChairIndications:P rimary osteoarthritis of hips, bilateral For home use. 1 Each 11/30/19 Suspended Additional Information FreeStyle [place] 3 Sensor for continuous blood glucose monitor (CGM)Indications:T ype 2 diabetes mellitus with diabetic peripheral angiopathy without gangrene, with long-term current use of insulin (HC) To be used to read blood sugars per aeronautical inspector's directions. 1 Each 12/06/19 Suspended Additional Information carvediloL (COREG) 3.125 mg tabletIndications: Heart failure with preserved ejection fraction, unspecified HF chronicity (HC),Essential hypertension TAKE 1 TABLET (3.125 MG) BY MOUTH TWO TIMES DAILY WITH MEALS. 180 Tablet 01/06/20 Suspended Additional Information Insulin [place], Disposable, 32 gauge x 32Indications:T ype 2 diabetes mellitus with diabetic peripheral angiopathy without gangrene (HC) As directed. Use with 5-6 times a day insulin. As covered by insurance. Remove the 2 covers on the insulin pen needle before administering insulin dose. 500 Each 01/07/20 24 Suspended Additional Information isosorbide mononitrate (IMDUR) 30 mg extended release tablet 24 HourIndications:He art failure, unspecified HF chronicity, unspecified heart failure type (HC) Take 1 Tablet (30 mg) by mouth once daily. 30 Tablet 11 01/21/20 24 Suspended Additional Information clopidogreL (PLAVIX) 75 mg tabletIndications: NSTEMI (non-ST elevated myocardial infarction) (HC) TAKE 1 TABLET BY MOUTH ONCE DAILY. 90 Tablet 3 01/24/20 24 Suspended Additional Information rosuvastatin (CRESTOR) 40 mg tabletIndications: S/P CABG x 2,Coronary artery disease involving [place] coronary artery of [place] heart without angina pectoris TAKE 1 TABLET BY MOUTH AT BEDTIME 90 Tablet 2 01/26/20 24 Suspended Additional Information empagliflozin (JARDIANCE) 10 mg tabletIndications: Type 2 diabetes mellitus with diabetic peripheral angiopathy without gangrene, with long-term current use of insulin (HC) Take 1 Tablet (10 mg) by mouth once daily. 30 Tablet 3 02/11/20 24 024 Discontinued durable medical equipment (DME)Indications:P rimary osteoarthritis of hips, bilateral,DDD (degenerative disc disease), lumbar,Coronary artery disease involving [place] heart without angina pectoris, unspecified vessel or lesion type,Stage 3b chronic kidney disease (HC),Type 2 diabetes mellitus with other skin ulcer, with long-term current use of insulin (HC) Electric scooter to use for mobility 1 Each 04/03/20 24 Suspended Additional Information insulin glargine, U-100, (Lantus Solostar U-100 Insulin) 100 unit/mL (3 mL) penIndications:Typ e 2 diabetes mellitus with diabetic peripheral angiopathy without gangrene, with long-term current use of insulin (HC) Product desired: LANTUS SOLOSTARINJECT 50 UNITS EVERY MORNING AND 30 UNITS AT BEDTIME SUBCUTANEOUSLY. STRENGTH: 100 UNIT/ML (3 ML) 90 mL 1 04/03/20 24 Suspended Additional Information Chair LiftIndications:Pr imary osteoarthritis of hips, bilateral,DDD (degenerative disc disease), lumbar For home use. 1 Each 04/17/20 24 Suspended Additional Information HumaLOG KwikPen Insulin 100 unit/mL inpn penIndications:Typ e 2 diabetes mellitus with diabetic peripheral angiopathy without gangrene, with long-term current use of insulin (HC) Inject 12-14 units 3-4x/day. Product desired: HUMALOG KWIKPENINJECT 12 TO 14 UNITS 3 TO 4 TIMES PER DAY 45 Each 3 05/12/20 24 Suspended Additional Information Jardiance 10 mg tabletIndications: Type 2 diabetes mellitus with diabetic peripheral angiopathy without gangrene, with long-term current use of insulin (HC) TAKE 1 TABLET BY MOUTH EVERY DAY 30 Tablet 3 06/06/20 24 Suspended Additional Information famotidine (PEPCID) 40 mg tabletIndications: Gastroesophageal reflux disease, unspecified whether esophagitis present TAKE 1 TABLET BY MOUTH EVERY DAY 90 Tablet 2 06/07/20 24 Suspended Additional Information aspirin chewable 81 mg chewable tablet Chew 81 mg by mouth once daily with a meal. Suspended Active Problems Problem Noted Date Diagnosed Date Insulin dependent type 2 diabetes mellitus 07/01 Cellulitis of right leg 07/01/2024 Acute on chronic heart failu re with preserved ejection fraction (HFpEF) 07/01/2024 Atrial fibrillation, unspecified type 04/03/2024 Wound of right leg 03/02/2024 Primary osteoarthritis of left hip 09/21/2023 Stasis ulcer of left lower extremity 09/17/2023 NSTEMI (non-ST elevated myocardial infarction) 1 10/12/2022 Hyperlipidemia 08/12/2023 Stasis ulcer of right lower extremity 11/02/2022 Secondary hyperparathyroidism of renal origin DDD (degenerative disc disease), lumbar 08/09/20 Pain medication agreement broken 08/08/2018 Overview (08/08/2018): 08/08/18 at [facility] [place]hedema 04/29/2018 Gastroesophageal reflux disease 04/29/2016 Stage 3b chronic kidney disease 01/13/2016 Chronic pain syndrome 09/18/2015 Coronary artery disease Overview (08/12/2023): 2018: coronary artery bypass graft Primary osteoarthritis of hips, bilateral Chronic, continuous use of opioids Morbid obesity with BMI of 45.0-49.9, adult Resolved Problems Problem Noted Date Diagnosed Date Resolved Date Acute on chronic heart failu re with preserved ejection fraction (HFpEF) 07/01/2024 07/01/2024 Diabetes mellitus, type 2 08/12/2023 (HFpEF) heart failure with p reserved ejection fraction 08/12/2023 07/01/2024 Detachment of nail 01/21/2023 Acute on chronic [...] 08/12/2023 Bilateral hip joint arthritis 08/09/2019 08/12/2023 Overview (08/09/2019): Moderate Essential hypertension 07/29/201808/12 Leg wound, left 04/29/2018 06/13/2018 Overview (04/29/2018): Left medial leg just above the ankle 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 Lifelong aspirin 81 mg daily. Plavix for 12 months. S/P CABG x 2 03/02/2018 08/12/2023 Overview (03/02/2018): S/p off pump CAB x 2 03/02/18 Dr. Montgomery Leg wound, right 11/29/2017 08/12/2023 Overview (11/29/2017): Posterior calf Morbid obesity with BMI of 40.0-44.9, adult 05/17/2016 08/12/2023 Chronic ulcer of left leg, l imited to breakdown of skin 01/31/2016 06/05/2016 Benign non-nodular prostatic hyperplasia with lower urinary tract symptoms 01/30/2016 08/12/2023 Coronary artery disease invo lving mo[place] coronary artery of [place] heart without angina pectoris 11/15/2015 08/12/2023 Vitamin D deficiency 10/18/2015 023 Peripheral edema 10/02/2015 08/12/2023 Primary osteoarthritis of both hips 07/05/2015 08/12/2023 PETER 03/04/2015 AHI-71, CSI- >50 04/01/2015 08/12/2023 Central sleep apnea 04/01/2015 08/12/20 23 Overview (02/15/2017): He reports he could not tolerate CPAP so he returned it. He thinks that since he stopped drinking alcohol his sleep has been much better. He thinks he no longer has sleep apnea. Acute coronary syndrome 08/04/201406/05 CAD s/p reccurent NSTEMI with stents 08/04/2014 03/05/2018 NSTEMI (non-ST elevated myoc ardial infarction) 01/27/2014 08/12/2023 Overview (02/05/2014): Peak troponin 3.3 One drug eluting stent placed in proximal circumflex. Diffuse disease in left anterior descending and elsewhere. Ejection fraction after WA 60-65%. HTN (hypertension) 12/03/2010 8 Hemorrhage anterior chamber eye 08/12/2023 Overview (06/29/2015): happened twice sep 2013 Chest wall pain following surgery 08/12/2023 Chronic left hip pain 2022 Encounters Date Type Department Care Team Description 07/01/2024 12:15 AM CDT - Present Hospital Encounter [facility] [address] [place] [address] Ada Fonseca PA Geiger, Nicholas Allen, DO [facility], [facility] Adames DO Storlie, Erik John, MD Residents, C1 Cellulitis of right leg (Primary Dx); Bilateral lower extremity edema 07/01/2024 Travel 06/29/2024 1:00 PM CDT Orders Only [facility] [address] [place] [address] Lab 06/29/2024 Travel 06/26/2024 Telephone [facility] [address] [place], [place] [id number] Nuzhat Salinas PA Appointment (Appointment situation ) 06/19/2024 Telephone [place] [id number] [place] [address] [place] [id number] Mic Baldwin MD Medication Management 06/15/2024 2:00 PM CDT Office Visit [facility] [address] [place] [address] Wound Check 06/15/2024 Travel 06/04/2024 Refill [facility] [address] [place] [address] Nuzhat Salinas PA Refill Request (Famotidine) 06/03/2024 Refill [facility] [address] [place] [address] Nuzhat Salinas PA Refill Request (Jardiance) 05/18/2024 1:30 PM CDT Office Visit [facility] [address] [place] [address] Wound Check 05/18/2024 Travel 05/12/2024 Telephone [facility] [address] [place] [address] Nuzhat Salinas PA Medication Management (insulin lispro, U-100, (HumaLOG KwikPen Insulin) 100 unit/mL inpn pen) 05/11/2024 11:00 AM CDT Office Visit [facility] [address] [place] [address] Mic Baldwin MD 04/21/2024 Telephone [facility] [address] [facility] [address] [place] [address] Oj Ceja PA Medication Management 04/13/2024 1:00 PM CDT Office Visit [facility] [address] [place] [address] Wound Check 04/13/2024 Travel 04/13/2024 Telephone [facility] [address] [place] [address] Nuzhat Salinas PA NEEDS PRESCRIPTION (FOR LIFT CHAIR) 04/03/2024 2:40 PM CDT Office Visit [facility] [address] [place] [address] Nuzhat Salinas PA Concerns (Discuss hip pain, condition of legs and prescription for electric cart) 04/03/2024 Travel 04/01/2024 Refill [facility] [address] [facility] [address] Nuzhat Salinas PA Refill Request (Lantus Solostar U-100 Insulin) from Last 3 Months Immunizations Name Administration Dates Next Due COVID-19 vaccine (Zipit [employer] NTech 30mcg/0.3mL) 12YO+ BIVALENT PF, MDV 07/02/2022 [...] Sign Reading Time Taken Comments Blood Pressure 121/45 07/01/2024 8:52 PM CDT Pulse 69 07/02/2024 12:16 AM CDT Temperature 37 ??C (98.6 ??F) 07/01/2024 8:52 PM CDT Respiratory Rate 18 07/01/2024 8:52 PM CDT Oxygen Saturation 95% 07/01/2024 8:52 PM CDT Inhaled Oxygen Concentration - - Weight 139.5 kg (307 lb 8 oz) 07/02/2024 5:49 AM CDT Height 177.8 cm (5' 10) 07/01/2024 12:20 AM CDT Body Mass Index 44.12 07/01/2024 12:20 AM CDT Plan of Treatment Upcoming Encounters Date Type Department Care Team (Late st Contact Info) Description 07/13/2024 2:00 PM CDT Office Visit [facility] [address] [place] [address] Health Maintenance Due Date Last Done Comments [...] 07/03/2019, Additional history exists COVID-19 vaccine series ( season) 2024 07/02/2022, 07/14/2021, 12/30/2020, Additional history exists Influenza [...] 11/15/2014 Tdap Completed 10/26/2022, 07/05, 06/05/2009 Procedures The patient is currently admitted. The information in this section might not be complete until the patient is discharged. Procedure Name Priority Date/Time Associated Diagnosis Comments GLUCOSE METER Timed 07/02/2024 6:34 AM CDT SCAN-CARDIAC STRIP 07/02/2024 12 :32 AM CDT GLUCOSE METER Timed 07/01/2024 9:55 PM CDT POTASSIUM Today 07/01/2024 7:27 PM CDT GLUCOSE METER Timed 07/01/2024 5:50 PM CDT POTASSIUM Today 07/01/2024 1:51 PM CDT GLUCOSE METER Timed 07/01/2024 11:50 AM CDT SCAN-CARDIAC STRIP 07/01/2024 9: 10 AM CDT GLUCOSE METER Timed 07/01/2024 7:54 AM CDT US VENOUS LOWER EXTREMITY RIGHT PORTABLE STAT 07/01/2024 3:13 AM CDT GLUCOSE METER Timed 07/01/2024 2:53 AM CDT GLUCOSE METER Timed 07/01/2024 2:31 AM CDT LACTATE SCREEN VENOUS ISTAT W SIMON STAT 07/01/2024 2:07 AM CDT XR CHEST 2 VIEWS PA AND LATERAL STAT 07/01/2024 2:04 AM CDT XR ANKLE 3 VIEWS RIGHT STAT 4 2:04 AM CDT EXTRA TUBE SIMON ON ICE STAT 4 2:02 AM CDT ISTAT LACTATE SCREEN VENOUS STAT 07/01/2024 2:02 AM CDT CBC WITH AUTO DIFFERENTIAL STAT 07/01/2024 12:40 AM CDT PRO-BNP STAT 07/01/2024 12:40 AM CDT SEDIMENTATION RATE STAT 07/01/2024 12 :40 AM CDT C-REACTIVE PROTEIN STAT 07/01/2024 12 :40 AM CDT BASIC METABOLIC PANEL STAT 07/01/2024 12:40 AM CDT CBC WITH AUTO DIFFERENTIAL STAT 07/01/2024 12:40 AM CDT EXTENDED HOLTER Routine 06/20/2024 12:00 AM CDT Bradycardia LIPID PANEL Early AM 08/13/2023 6:54 AM NETWORK PROGRAM MANAGER OCCULT BLOOD IFOBT STOOL Routine 03/06/2019 7:41 AM CDT Screening for colorectal cancer EXPOSURE (BBF) ANTI HCV STAT 03/02/2018 10:45 AM CDT from Last 3 Months or Most Recently Relevant to Health Maintenance Results * (ABNORMAL) GLUCOSE METER (07/02/2024 6:34 AM CDT) Only the most recent of7 resultswithin the time period is included. GLUCOSE METER 184(H) 65 - 100 mg/dL 07/02/2024 6:34 AM CDT [facility] Blood BLOOD SPECIMEN / Unknown 07/02/2024 6:34 AM CDT 07/02/2024 6:34 AM CDT Noah Nunez MD CHEMISTRY Performing Organization Address [facility] Co de Phone Number [facility] [address] [place] [address], [place] * SCAN-CARDIAC STRIP (07/02/2024 12:32 AM CDT) Scanner OTHER * POTASSIUM (07/01/2024 7:27 PM CDT) Only the most recent of2 resultswithin the time period is included. POTASSIUM 3.7 3.5 - 5.1 mmol/L 07/01/2024 7:55 PM CDT [facility] Blood BLOOD SPECIMEN / Unknown Venipuncture / Unknown 07/01/2024 7:27 PM CDT 07/01/2024 7:33 PM CDT Alee Paul RN CHEMISTRY Performing Organization Address [facility] Co de Phone Number [facility] [address] [place] [id number], [place] * SCAN-CARDIAC STRIP (07/01/2024 9:10 AM CDT) Scanner OTHER * US VENOUS LOWER EXTREMITY RIGHT PORTABLE (07/01/2024 3:13 AM CDT) Anatomical Region Laterality Modality LEGS, LEG R Ultrasound 07/01/2024 3:16 AM CDT Impressions 07/01/2024 3:16 AM CDT No sign of deep venous thrombosis in the right lower extremity. Dictated by Marquez Hall MD @ 07/01/2024 3:16:42 AM (Electronically Signed) Narrative 07/01/2024 3:16 AM CDT For Patients: ??As a result of the Cures Act, medical imaging exams and procedure reports are released immediately into your electronic medical record. ??You may view this report before your referring provider. ??If you have questions, please contact your health care provider. INDICATION: Leg pain and swelling. TECHNIQUE: Ultrasound venous duplex lower right extremity. Compression venous exam was performed using simon-scale, color Doppler, and spectral Doppler analysis. COMPARISON: None. FINDINGS: Evaluation is limited due to body habitus and soft tissue swelling. Deep veins: Sonographic imaging demonstrates the right common femoral, deep femoral, superficial femoral, popliteal, posterior tibial, and the contralateral left common femoral veins to be fully compressible with normal color Doppler blood flow. Superficial veins: Greater saphenous vein is fully compressible. No popliteal cyst. Procedure Note Marquez Hall MD - 07/01/2024 For Patients: As a result of the Cures Act, medical imagingexams and procedure reports are released immediately into your electronicmedical record. You may view this report before your referring provider.If you have questions, please contact your health care provider. INDICATION: Leg pain and swelling. TECHNIQUE: Ultrasound venous duplex lower right extremity. Compression venous examwas performed using simon-scale, color Doppler, and spectral Doppleranalysis. COMPARISON: None. FINDINGS: Evaluation is limited due to body habitus and soft tissue swelling. Deep veins: Sonographic imaging demonstrates the right common femoral,deep femoral, superficial femoral, popliteal, posterior tibial, and thecontralateral left common femoral veins to be fully compressible withnormal color Doppler blood flow. Superficial veins: Greater saphenous vein is fully compressible. No popliteal cyst. IMPRESSION: No sign of deep venous thrombosis in the right lower extremity. Dictated by Marquez Hall MD @ 07/01/2024 3:16:42 AM (Electronically Signed) Ada PATTON [place] * LACTATE SCREEN VENOUS ISTAT W SIMON (07/01/2024 2:07 AM CDT) LACTATE VENOUS SCREEN ISTAT <1.8 <=2.0 07/01/2024 2:10 AM CDT [facility] LACTATE SCREEN VENOUS POCT 1.5 <=2.0 07/01/2024 2:10 AM CDT [facility] Blood BLOOD SPECIMEN / Unknown 07/01/2024 2:07 AM CDT 07/01/2024 2:10 AM CDT Ada PATTON [facility] [address] [address], [place] * XR CHEST 2 VIEWS PA AND LATERAL (07/01/2024 2:04 AM CDT) Anatomical Region Laterality Modality CHEST, THORAX, Lung, HEART Digit al Radiography 07/01/2024 2:14 AM CDT Impressions 07/01/2024 2:14 AM CDT Low lung volumes without evidence of consolidation. Dictated by Marquez Hall MD @ 07/01/2024 2:14:17 AM (Electronically Signed) Narrative 07/01/2024 2:14 AM CDT For Patients: ??As a result of the 21st Century Cures Act, medical imaging exams and procedure reports are released immediately into your electronic medical record. ??You may view this report before your referring provider. ??If you have questions, please contact your health care provider. INDICATION: Shortness of breath. TECHNIQUE: Chest 2 views. COMPARISON: 08/11/2023. FINDINGS: Cardiovascular and mediastinum: Stable cardiomegaly. Median sternotomy, unchanged. Lungs and pleural spaces: Lung volumes are low. No consolidation. No pleural effusions or pneumothorax. Bones and soft tissues: No significant findings. Procedure Note Marquez Hall MD - 07/01/2024 For Patients: As a result of the Cures Act, medical imagingexams and procedure reports are released immediately into your electronicmedical record. You may view this report before your referring provider.If you have questions, please contact your health care provider. INDICATION: Shortness of breath. TECHNIQUE: Chest 2 views. COMPARISON: 08/11/2023. FINDINGS: Cardiovascular and mediastinum: Stable cardiomegaly. Median sternotomy,unchanged. Lungs and pleural spaces: Lung volumes are low. No consolidation. Nopleural effusions or pneumothorax. Bones and soft tissues: No significant findings. IMPRESSION: Low lung volumes without evidence of consolidation. Dictated by Marquez Hall MD @ 07/01/2024 2:14:17 AM (Electronically Signed) Ada PATTON [facility] * XR ANKLE 3 VIEWS RIGHT (07/01/2024 2:04 AM CDT) Anatomical Region Laterality Modality ANKLES, ANKLE R Digital Radiogra phy 07/01/2024 2:13 AM CDT Impressions 07/01/2024 2:13 AM CDT Soft tissue swelling without evidence of acute osseous abnormality. Dictated by Marquez Hall MD @ 07/01/2024 2:13:11 AM (Electronically Signed) Narrative 07/01/2024 2:13 AM CDT For Patients: ??As a result of the Cures Act, medical imaging exams and procedure reports are released immediately into your electronic medical record. ??You may view this report before your referring provider. ??If you have questions, please contact your health care provider. INDICATION: Pain, swelling. TECHNIQUE: Right ankle 3 views. COMPARISON: None. FINDINGS: No acute fracture. Talar dome is intact. Ankle mortise is congruent. Joint spaces are maintained. Plantar calcaneal spur. Posterior calcaneal enthesophyte. Dense atherosclerotic calcifications. Soft tissue swelling. Procedure Note Marquez Hall MD - 07/01/2024 For Patients: As a result of the Century Cures Act, medical imagingexams and procedure reports are released immediately into your electronicmedical record. You may view this report before your referring provider.If you have questions, please contact your health care provider. INDICATION: Pain, swelling. TECHNIQUE: Right ankle 3 views. COMPARISON: None. FINDINGS: No acute fracture. Talar dome is intact. Ankle mortise is congruent. Jointspaces are maintained. Plantar calcaneal spur. Posterior calcanealenthesophyte. Dense atherosclerotic calcifications. Soft tissueswelling. IMPRESSION: Soft tissue swelling without evidence of acute osseous abnormality. Dictated by Marquez Hall MD @ 07/01/2024 2:13:11 AM (Electronically Signed) Ada [facility] * EXTRA TUBE SIMON ON ICE (07/01/2024 2:02 AM CDT) Blood BLOOD SPECIMEN / Unknown Venipuncture / Unknown 07/01/2024 2:02 AM CDT 07/01/2024 2:08 AM CDT [facility] Performing Organization Address City/[facility]/ZIP Co de Phone Number [facility] [address] [place] [address], * (ABNORMAL) SEDIMENTATION RATE (07/01/2024 12:40 AM CDT) SEDIMENTATION RATE 81(H) <20 mm/hr 2023 1:00 AM CDT [facility] Blood BLOOD SPECIMEN / Unknown Venipuncture / Unknown 07/01/2024 12:40 AM CDT 07/01/2024 12:46 AM CDT [facility] [address] [place] [address], [place] * (ABNORMAL) CBC WITH AUTO DIFFERENTIAL (07/01/2024 12:40 AM CDT) WHITE BLOOD COUNT 15.1(H) 4.5 - 11.0 thou/cu mm 07/01/2024 12:52 AM CDT [facility] RED BLOOD COUNT 4.74 4.30 - 5.90 mil/cu mm 07/01/2024 12:52 AM T [facility] HEMOGLOBIN 13.2(L) 13.5 - 17.5 g/dL 07/01/2024 12:52 AM T [facility] HEMATOCRIT 42.4 37.0 - 53.0 % 07/01/2024 12:52 AM T [facility] MCV 90 80 - 100 fL 07/01/2024 12:52 AM [facility] MCH 27.8 26.0 - 34.0 pg 07/01/2024 12:52 AM [facility] MCHC 31.1(L) 32.0 - 36.0 g/dL 07/01/2024 12:52 AM [facility] RDW 14.3 11.5 - 15.5 % 07/01/2024 12:52 AM T [facility] PLATELET COUNT 291 140 - 440 thou/cu mm 07/01/2024 12:52 AM [facility] MPV 9.7 6.5 - 11.0 fL 07/01/2024 12:52 [facility] NRBC 0.0 % 07/01/2024 12:52 AM CDT [facility] ABS NRBC 0.0 thou /cu mm 07/01/2024 12:52 AM [facility] % NEUT 87.8 % 07/01/2024 12:52 AM CDT [facility] % LYMPH 4.9 % 07/01/2024 12:52 AM CDT [facility] % MONO 6.0 % 07/01/2024 12:52 AM T [facility] % EOS 0.7 % 07/01/2024 12:52 AM CDT [facility] % BASO 0.3 % 07/01/2024 12:52 AM CDT [facility] % IMMATURE GRAN (METAS,MYELOS,PA OS) 0.3 % 07/01/2024 12:52 AM CDT [facility] ABSOLUTE NEUTROPHILS 13.2(H) 1.7 - 7.0 thou/cu mm 07/01/2024 12:52 AM CDT [facility] ABSOLUTE LYMPHOCYTES 0.7(L) 0.9 - 2.9 thou/cu mm 07/01/2024 12:52 AM CDT [facility] ABSOLUTE MONOCYTES 0.9(H) <0.9 thou/cu mm 07/01/2024 12:52 AM CDT [facility] ABSOLUTE EOSINOPHILS 0.1 <0.5 thou/cu mm 07/01/2024 12:52 AM CDT [facility] ABSOLUTE BASOPHILS 0.0 <0.3 thou/cu mm 07/01/2024 12:52 AM CDT [facility] ABSOLUTE IMMATURE GRANULOCYTES(MET ,MYELOS,PROS) 0.0 <0.3 thou/cu mm 07/01/2024 12:52 AM CDT [facility] Blood BLOOD SPECIMEN / Unknown Venipuncture / Unknown 07/01/2024 12:40 AM CDT 07/01/2024 12:46 AM CDT [facility] [address] [place] [address], * (ABNORMAL) C-REACTIVE PROTEIN (07/01/2024 12:40 AM CDT) C-REACTIVE PROTEIN 0.9(H) <0.5 mg/dL 07/01/2024 1:36 AM CDT [facility] Blood BLOOD SPECIMEN / Unknown Venipuncture / Unknown 07/01/2024 12:40 AM CDT 07/01/2024 12:46 AM CDT Ada [facility] [address] [place] [address], * (ABNORMAL) PRO-BNP (07/01/2024 12:40 AM CDT) [facility] PRO-BNP 683(H) <125 pg/mL 07/01/2024 1:51 AM CDT [facility] Blood BLOOD SPECIMEN / Unknown Venipuncture / Unknown 07/01/2024 12:40 AM CDT 07/01/2024 12:46 AM CDT Narrative [facility] - 07/01/2024 1:51 AM CDT The following cut-points have been suggested for the use of proBNP for the diagnostic evaluation of heart failure (HF) in patient with acute dyspnea. Patients with eGFR >= 60 Diagnosis (rule in CHF) ? <50 Years Old ?450 pg/mL 50 - 75 Years Old ?900 pg/mL >75 Years Old ? 1800 pg/mL Exclusion (rule out CHF) Age Independent ?300 pg/mL A cutoff of 1200 pg/mL for patients with an eGFR <60 yields a diagnostic sensitivity of 89% and specificity of 72% for acute congestive heart failure. ? [facility] [address] [place] [address], * (ABNORMAL) BASIC METABOLIC PANEL (07/01/2024 12:40 AM CDT) SODIUM 139 136 - 145 mmol/L 07/01/2024 1:36 AM T [facility] POTASSIUM 3.7 3.5 - 5.1 mmol/L 07/01/2024 1:36 AM CDT [facility] CHLORIDE 98 98 - 107 mmol/L 07/01/2024 1:36 AM T [facility] CO2,TOTAL 29 22 - 29 mmol/L 07/01/2024 1:36 AM T [facility] ANION GAP 12 5 - 18 07/01/2024 1:36 AM T [facility] GLUCOSE 126(H) 70 - 99 mg/dL 07/01/2024 1:36 AM T [facility] CALCIUM 8.9 8.8 - 10.2 mg/dL 07/01/2024 1:36 AM T [facility] BUN 30(H) 8 - 23 mg/dL 07/01/2024 1:36 AM T [facility] CREATININE 2.03(H) 0.70 - 1.20 mg/dL 07/01/2024 1:36 AM [facility] BUN/CREAT RATIO 15 10 - 20 4 1:36 AM T [facility] eGFR 35(L) >90 mL/min/1.7 3m2 07/01/2024 1:36 AM [facility] Comment:As of 2021, eG FR is calculated by the CKD-EPI creatinine equation without race adjustment. ??eGFR can be influenced by muscle mass, exercise, and diet. ??The reported eGFR is an estimation only and is only applicable if the renal function is stable. Blood BLOOD SPECIMEN / Unknown Venipuncture / Unknown 07/01/2024 12:40 AM CDT 07/01/2024 12:46 AM CDT [facility] [address] [place] [address], * Zio XT (06/20/2024 12:00 AM CDT) Mic Baldwin MD CARDIAC SERVICES ORD * Lipid Panel - In AM (08/13/2023 6:54 AM NETWORK PROGRAM MANAGER) [facility] CHOLESTEROL,TOTAL 127 100 - 199 mg/dL 08/13/2023 8:30 AM NETWORK PROGRAM MANAGER [facility] [employer] Comment: Cholesterol, Total Reference Ranges Desirable <200 mg/dL Borderline 200-239 mg/dL High >=240 mg/dL TRIGLYCERIDES 126 <150 mg/dL 08/13/2023 8:30 AM NETWORK PROGRAM MANAGER [facility] [employer] LABORATORY-[facility] HDL CHOLESTEROL 47 >40 mg/dL 8:30 AM NETWORK PROGRAM MANAGER [facility] NON-HDL CHOLESTEROL 80 <145 mg/dl 08/13/2023 8:30 AM NETWORK PROGRAM MANAGER [facility] CHOL/HDL RATIO 2.70 <4.50 08/13/2023 8:30 AM NETWORK PROGRAM MANAGER [facility] [employer] LABORATORY-[facility] LDL CHOLESTEROL 55 <=130 mg/dL 08/13/2023 8:30 AM NETWORK PROGRAM MANAGER [facility] VLDL CHOLESTEROL 25 <=30 mg/dL 08/13/2023 8:30 AM NETWORK PROGRAM MANAGER [facility] PROVIDER ORDERED STATUS RANDOM 08/13/2023 8:30 AM NETWORK PROGRAM MANAGER [facility] [employer] Blood BLOOD SPECIMEN / Unknown Venipuncture / Unknown 08/13/2023 6:54 AM NETWORK PROGRAM MANAGER 08/13/2023 7:28 AM NETWORK PROGRAM MANAGER Candido Perdomo MD CHEMISTRY [facility] [address] [place] [address], [place] * OCCULT BLOOD IFOBT STOOL (03/06/2019 7:41 AM CDT) STOOL BLOOD ,IFOBT Negative Negative 03/08/2019 11:30 AM CDT [facility] Stool STOOL SPECIMEN / Unknown Non-Blood / Unknown 03/06/2019 7:41 AM CDT 03/07/2019 7:42 AM CDT Mic Thompson MD LAB[facility]ATORY [facility] [address] [place] [address], * Patient Source ANTI HCV (03/02/2018 10:45 AM CDT) HEPATITIS C ANTIBODY Non-React naina Non-React naina 03/02/2018 11:43 AM CDT [facility] Comment:Antibodies to HCV no t detected; does not exclude the possibility of exposure to HCV. Blood BLOOD SPECIMEN / Unknown Non-Lab Venipuncture / Unknown 03/02/2018 10:45 AM CDT 03/02/2018 10:56 AM CDT Arnie Montgomery MD [facility] [address] [place] [address], [place] from Last 3 Months or Most Recently Relevant to Health Maintenance Srinivasa Womack Personal/Family Self [address] [place] [address] Srinivasa Womack Personal/Family Self [address] [place] [address] Advance Directives * Full Code (Latest Code Status on File) Date Activated Date Inactivated Comments 07/01/2024 7:35 AM Question Answer Comments Code Status Discussion: Reviewed Preferences * Full Code Date Activated Date Inactivated Comments 08/12/2023 7:31 [...] Answer Comments Code Status Discussion: Not Discussed Care Teams Professor Of Business Relationship Specialty Start Date End Date Nuzhat Salinas [place] [address] PCP - General Physician Feed Grinder 09/05/21 [facility] [place] [address] [place] [address] 12/17/21
--- OUTSIDE RECORDS SUMMARY | 2024-07-02 06:50 | XMS_ITS | Encounter Summary ---
Demographics Address [address] [place] [address] Mobile Phone Email Address Preferred Language en Marital Status Uatsdin Affiliation Unknown Race White Ethnic Group Not or Lati no Author Organization [facility] Address [address] [place] [address] Care Team Providers Care Travel Occupational Therapist Name Role Phone Nuzhat Salinas PA-C Primary Care Provider [phone] Encounter Details Date Type Department Care Team (Late st Contact Info) Description 06/23/2024 Telephone [facility] [address] [place] [address] Sobeida Escobar, RN [address] [place] [address] Social History Tobacco Use Types [...] encounter Miscellaneous Notes * Telephone Encounter - Sobeida Escobar RN - 06/23/2024 11:54 AM CDT [facility] Renal panel, hgb, PTH, urine Alb:Cr Lab order faxed to [facility]. * Telephone Encounter - Sobeida Escobar RN - 06/23/2024 10:56 AM CDT Pt called to have PVL order faxed to [facility]. Paged Dr. Carbajal for lab orders. documented in this encounter Plan of Treatment Upcoming Encounters Date Type Department Care Team (Late st Contact Info) Description 07/03/2024 2:00 PM EDT Office Visit [facility] [address] [place] [address] Adalberto Carbajal MD [address] [place] [address] Scheduled Orders Name Type Priority Associated Diagnoses Orde r Schedule Hemoglobin Lab Routine Stage 3b chronic kidney disease (HCC) Expected: 06/23/2024, Expires: 07/23/2025 Urine Albumin / Creatinine Ratio Lab Routine Stage 3b chronic kidney disease (HCC) Expected: 06/23/2024, Expires: 07/23/2025 documented as of this encounter Procedures Procedure Name Priority Date/Time Associated Diagnosis Comments PTH, INTACT Routine 06/29/2024 12:25 PM CDT Stage 3b chronic kidney disease (HCC) RENAL FUNCTION PANEL Routine 06/29/2024 12:25 PM CDT Stage 3b chronic kidney disease (HCC) documented in this encounter Results * (ABNORMAL) PTH, Intact (06/29/2024 12:25 PM CDT) Parathyroid Hormone, Intact 136(H) 16 - 77 pg/mL See order comments Comment: Interpretive Guide ?Intact PTH ? Calcium ? ------- Normal Parathyroid ?Normal ? Normal Hypoparathyroidism ?Low or Low Normal ?Low Hyperparathyroidism ?? Primary ?Normal or High ? High ?? Secondary ?High ? Normal or Low ?? Tertiary ? High ? High Non-Parathyroid ?? Hypercalcemia ?Low or Low Normal ?High Blood (Blood, Venous) 06/29/2024 12:25 PM CDT 06/29/2024 12:26 PM CDT Narrative [facility] - 06/30/2024 1:05 PM CDT PATIENT UNABLE TO VOID; ADVISED TO RETURN FOR COLLECTION. Resulting Agency Comment Performing Organization Information: ?Site ID: [id number] ?Name: [facility] ?Address: [address] [place] [id number] ?Director: Aman Acosta Adalberto Carbajal MD LAB BLOOD ORDERABLES [facility] See order comments [place] [address] * (ABNORMAL) Renal Function Panel (06/29/2024 12:25 PM CDT) Glucose 199(H) 65 - 99 mg/dL See order comments Comment: ? Fasting reference interval For someone without known diabetes, a glucose value >125 mg/dL indicates that they may have diabetes and this should be confirmed with a follow-up test. BUN 31(H) 7 - 25 mg/dL See order comments Creatinine 2.04(H) 0.70 - 1.35 mg/dL See order comments eGFR CKD-EPI CR 2020 35(L) > OR = 60 mL/min/1.7 3m2 See order comments BUN/Creatinine Ratio 15 6 - 22 (calc) See order comments Sodium 137 135 - 146 mmol/L See order comments Potassium 3.9 3.5 - 5.3 mmol/L See order comments Chloride 96(L) 98 - 110 mmol/L See order comments Bicarbonate (CO2) 30 20 - 32 mmol/L See order comments Calcium 9.1 8.6 - 10.3 mg/dL See order comments Phosphorus 3.6 2.1 - 4.3 mg/dL See order comments Albumin 3.7 3.6 - 5.1 g/dL See order comments Blood (Blood, Venous) 06/29/2024 12:25 PM CDT 06/29/2024 12:26 PM CDT Narrative [facility] - 06/30/2024 1:05 PM CDT PATIENT UNABLE TO VOID; ADVISED TO RETURN FOR COLLECTION. Resulting Agency Comment Performing Organization Information: ?Site ID: ?Name: [facility] ?Address: [address] [place] [id number] ?Director: Aman Acosta Adalberto Carbajal MD LAB BLOOD ORDERABLES Performing Organization Address City/State/ZIP Co ga Phone Number [facility] See order comments [place] [address] documented in this encounter Visit Diagnoses Diagnosis Stage 3b chronic kidney disease (HCC)- Primary documented in this encounter Care Teams Travel Occupational Therapist Relationship Specialty Start Date End Date Nuzhat Salinas PA-C [address] [place] [address] PCP - General Physician Assistant Professor Of Communication 01/15/22 documented as of this encounter
--- OUTSIDE RECORDS SUMMARY | 2024-07-02 06:50 | XMS_ITS | Encounter Summary ---
Demographics Address [address] [place] [address] Mobile Phone Email Address Preferred Language en Marital Status Mormonism Affiliation Unknown Race White Ethnic Group Not or Lati no Author Organization [facility] Address [address] [place] [address] Care Team Providers Care Sign Writer Letterer Or Painter Name Role Phone Nuzhat Salinas PA-C Primary Care Provider [phone] Encounter Details Date Type Department Care Team (Late st Contact Info) Description 03/30/2024 Office Communication [facility] [address] [place] [address] Mora Donis Social History Tobacco Use Types Packs/Day Years [...] encounter Miscellaneous Notes * Telephone Encounter - Katja Shay - 03/31/2024 9:22 AM CDT Mailed the Established PT Missed/Canceled letter to the patient to reschedule their appointment on 03/[address] Carbajal at [facility]. * Telephone Encounter - Mora Donis - [...] [facility] [address] [place] [id number] Adalberto Carbajal MD [address] [place] [address] documented as of this encounter Visit Diagnoses Not on filedocumented in this encounter Care Teams Sign Writer Letterer Or Painter Relationship Specialty Start Date End Date Nuzhat Salinas PA-C [address] [place] [address] PCP - General Physician Glass Engraver 01/15/22 documented as of this encounter
--- OUTSIDE RECORDS SUMMARY | 2024-07-02 06:50 | XMS_ITS | Continuity of Care Document ---
Demographics Address [address] [facility] [place] [address] Home Phone Email Address Preferred Language en Marital Status Gnosticism Affiliation Unknown Race White Ethnic Group Unknown Author Organization [facility] Address [address] [facility] [address] [place] [address] Phone Care Team Providers Care Revenue Enforcement Collection Agent Name Role Phone Kamila Subramanian PT Unavailable [...] Date Provider Providers Copied on Encounter [place] [facility], [address], [place], [place], [id number], [place] tel:[phone] [facility] No Information Marilynn Treviño. [address], [place], [place], [id number], [place]. tel:[phone] Referring Provider: Mic Thompson MD, [address] [place], [address]. tel:[phone] [facility], [address], [place], [address], [place] tel:[phone] [facility] No Information Jun- 5 No Information SUSAN Marlow, [address], [place], [place], [id number], [place] tel:[phone] [facility] No Information Jun- 5 No Information Referring Provider: Mic Thompson MD, [address] [place], [address]. tel:[phone] New Pt Eval 45 Min SUSAN Marlow, [address], [place], [place], [id number], [place] tel:[phone] [facility] No Information 5 No Information Referring Provider: Mic Thompson MD, [address] [place], [address]. tel:[phone] Family History Family Member Type Diagnosis Age At Onset No Information Payers Payer name Insurance type Covered republican ID Authorcatalina vargas(s) U Care-Medicaid [place] [id number] Social History Type Description Quantity Date Captured [...]
--- OUTSIDE RECORDS SUMMARY | 2024-07-02 06:50 | XMS_ITS | Clinical Summary ---
Demographics Address [address] [facility] [place] [address] Mobile Phone Email Address Preferred Language en Marital Status Mormonism Affiliation Unknown Race White Ethnic Group Not or Lati no Author Organization [facility] Address [address] [place] [address] Phone Care Team Providers Care Heddler Name Role Phone Nuzhat SalinasC Primary Care Provider [phone] Allergies Active Allergy Reactions Criticality Noted Date [...] Take one tablet every 3rd day. Active oxyCODONE (ROXICODONE) 5 MG immediate release tablet TAKE 1 TABLET THREE TIMES DAILY NEEDED FOR CHRONIC PAIN MAX 3/DAY 04/28/2024 Active Active Problems Problem Noted Date Diagnosed Date Anemia in chronic kidney disease 01/29/2022 Iron deficiency anemia 01/29/2022 Stage 3b chronic kidney disease 01/13/2016 Encounters Date Type Department Care Team Description 06/30/2024 Office Communication [facility] [address] [place] [phone] Adalberto Carbajal MD 06/23/2024 Telephone [facility] [address] [phone] Sobeida Escobar RN from Last 3 Months Immunizations Name Administration Dates Next Due Influenza Vaccine, Quadrivalent, Adjuvanted 08/05,06/26/2020 Pfizer SARS-COV-2 12/30/2020,12/09/2020,12/07/19 Pfizer SARS-CoV-2 Bivalent 30 mcg/0.3 mL 022 [...] Orientation Not on file Plan of Treatment Upcoming Encounters Date Type Department Care Team (Late st Contact Info) Description 07/03/2024 2:00 PM EDT Office Visit [facility] [address] [place] [address] Adalberto Carbajal MD [address] [place] [phone] Health Maintenance Due Date Last Done Comments Pneumococcal Vaccine: 65+ Years (1 of 2 - PCV) 1961 Colorectal Cancer Screening: Annual FOBT 2004 Colorectal Cancer Screening: Colonoscopy 2004 Colorectal Cancer Screening: Sigmoidoscopy 2004 Diabetes: Ophthalmology Exam 01/17/2022 Diabetes: Pedal Pulse Checked 01/17/2022 Diabetes: Sensory Foot Exam 01/17/2022 Diabetes: Visual Foot Exam 01/17/2022 Diabetes: Hemoglobin A1C 03/21/2024 024, 12/29/2021 Influenza Vaccine (#1) 2024 2, 06/26/2020 Hepatitis B Vaccine Aged Out No longe r eligible based on patient's age to complete this topic Procedures Procedure Name Priority Date/Time Associated Diagnosis Comments PTH, INTACT Routine 06/29/2024 12:25 PM CDT Stage 3b chronic kidney disease (HCC) RENAL FUNCTION PANEL Routine 06/29/2024 12:25 PM CDT Stage 3b chronic kidney disease (HCC) from Last 3 Months Results * (ABNORMAL) PTH, Intact (06/29/2024 12:25 [...] PM CDT 06/29/2024 12:26 PM CDT Narrative [facility] - 06/30/2024 1:05 PM CDT PATIENT UNABLE TO VOID; ADVISED TO RETURN FOR COLLECTION. Resulting Agency Comment Performing Organization Information: ?Site ID: [id number] ?Name: [facility] ?Address: [address] [place], [place] [address] [address] ?Director: Aman Acosta Adalberto Carbajal MD LAB BLOOD ORDERABLES [facility] See order comments [place] [address] * (ABNORMAL) Renal Function Panel (06/29/2024 12:25 [...] PM CDT 06/29/2024 12:26 PM CDT Narrative [facility] - 06/30/2024 1:05 PM CDT PATIENT UNABLE TO VOID; ADVISED TO RETURN FOR COLLECTION. Resulting Agency Comment Performing Organization Information: ?Site ID: [id number] ?Name: [facility] ?Address: [address] [place] [address] [place] [address] ?Director: Aman Acosta Adalberto Carbajal MD LAB BLOOD ORDERABLES [facility] See order comments [place] [address] from Last 3 Months Care Teams Heddler Relationship Specialty Start Date End Date Nuzhat Salinas PA-C [address] [place] [address] PCP - General Physician House Carpenter 01/15/22
--- OUTSIDE RECORDS SUMMARY | 2024-07-02 06:50 | XMS_ITS | Encounter Summary ---
Demographics Address [address] [place] [address] Mobile Phone Email Address Preferred Language en Marital Status Confucianist Affiliation Unknown Race White Ethnic Group Not or Lati no Author Organization [facility] Address [address] [place] [address] Care Team Providers Care High School Football Coach Name Role Phone Nuzhat Salinas PA-C Primary Care Provider [phone] Encounter Details Date Type Department Care Team (Late st Contact Info) Description 03/16/2024 Telephone [facility] [address] [place] [address] Kayli Lopez, RN [address] [place] [address] Social History Tobacco Use Types [...] encounter Miscellaneous Notes * Telephone Encounter - Kayli Lopez RN - 04/17/2024 12:30 PM CDT Scheduled 05/15. * Telephone Encounter - Adalberto Carbajal MD - 03/23/2024 3:41 PM CDT Patient now had labs done on 03/20/24, I reviewed them in [facility] system and they are now available in [facility] as well. Please database CBC and BMP and Hgb A1C into our system. Renal function wasstable. His weight was also stable when he went in to the [facility]. He can see me in May onthe date that I have openings in [facility] on May 15 (Wednesday). I may ask him to get labs af ter that appointment, but we will decide at that time and he does not need to do labs before that visit for me. If he would like to be seen sooner and if he has telehealth capability, I could do telehealth appointment with him in April from [facility] if I have an open slot available. [...] orders active. He sees Dr. Carbajal in [facility],do you want him seen next available? Or work him in? documented in this encounter Plan of Treatment Upcoming Encounters Date Type Department Care Team (Late st Contact Info) Description 07/03/2024 2:00 PM EDT Office Visit [facility] [address] [place] [address] Adalberto Carbajal MD [address] [place] [address] documented as of this encounter Visit Diagnoses Not on filedocumented in this encounter Care Teams High School Football Coach Relationship Specialty Start Date End Date Nuzhat Salinas PA-C [address] [place] [address] PCP - General Physician Resident Care Manager Rn 01/15/22 documented as of this encounter
== END 2024-06-30 23:00 | disposition home or self-care (01) ==
LOC: AMB 07-02 06:47
PROVIDERS: PCP Physician Assistant Medical; Visit Provider Family Medicine
DX: M25.571 Pain in right ankle and joints of right foot (principal)
CPT/HCPCS: A0425; A0427

== ENCOUNTER 2024-08-17 09:47 | Outpatient (RCR) | payer MEDICARE, MEDICAID, SELFPAY | END 2024-12-15 23:59 | disposition home or self-care (01) | PROVIDERS: PCP Physician Assistant Medical; Visit Provider Family Medicine | DX: I89.0 Lymphedema, not elsewhere classified (principal); L03.115 Cellulitis of right lower limb; R60.0 Localized edema; Z51.89 Encounter for other specified aftercare | CPT/HCPCS: 97166; 97530 ==

== ENCOUNTER 2024-08-18 16:09 | Outpatient (CLI) | payer MEDICARE, MEDICAID, SELFPAY ==
--- OUTSIDE RECORDS SUMMARY | 2024-08-25 01:39 | XMS_ITS | Encounter Summary ---
Demographics Address [address] [place] [address] Mobile Phone Email Address Preferred Language en Marital Status Hindu Affiliation Unknown Race White Ethnic Group Not or Lati no Author Organization [facility] Address [address] [place] [address] Care Team Providers Care Director Specialty Name Role Phone Nuzhat Salinas PA-C Primary Care Provider [phone] Reason for Visit * Reason Onset Date Comments Shortness of Breath 08/18/2024 Encounter Details Date Type Department Care Team (Late st Contact Info) Description 08/18/2024 Telephone [facility] [place] [address] [place] [address] Yanira Paul, RN [address] [place] [address] Shortness of Breath Social History Tobacco Use Types Packs/Day Years Used Date Smoking Tobacco: Former Cigars Q uit: 01/27/2014 Smokeless Tobacco: Never Comments:when he smoked it w as a cigar weekly for 8 years in summer Alcohol Use Standard Drinks/Week Comments Not Currently 0 (1 standard drink = 0.6 oz pur e alcohol) Sex and Gender Information Value Date Recorded Sex Assigned at Not on file Legal Sex Male 10:10 AM EDT Gender Identity Not on file Sexual Orientation Not on file documented as of this encounter Miscellaneous Notes * Telephone Encounter - Adalberto Carbajal MD - 08/21/2024 3:57 PM CST Thanks for the update. He was admitted one night, kept on spironolactone, torsemide increased, labsscheduled to repeat in September and f/u with me is scheduled. We will check in with him after he has repeat labs done. -Roberto Carbajal MD * Telephone Encounter - Yanira Paul, RN - 08/18/2024 3:40 PM CST Pt called in stating he was having new onset (as of yesterday 08/17) shortness of breath after starting spironolactone which is worsening. Pt advised to go to ER for eval. Pt stated he will go to [facility]. Covering providers at [facility] paged as FYI. documented in this encounter Plan of Treatment Upcoming Encounters Date Type Department Care Team (Late st Contact Info) Description 09/18/2024 Orders Only [facility] [place] [address] [address] Adalberto Carbajal MD [address] [place] [phone] Stage 3b chronic kidney disease (HCC) 12/11/2024 1:30 PM CDT Office Visit [facility] [place] [address] [address] [address] Adalberto Carbajal MD [address] [place] [address] documented as of this encounter Visit Diagnoses Not on filedocumented in this encounter Care Teams Director Specialty Relationship Specialty Start Date End Date Nuzhat Salinas PA-C [address] [place] [address] PCP - General Physician Cat Driver 01/15/22 documented as of this encounter
--- OUTSIDE RECORDS SUMMARY | 2024-08-25 01:39 | XMS_ITS | Encounter Summary ---
Demographics Address [address] [place] [address] Mobile Phone Email Address Preferred Language en Marital Status Islam Affiliation Unknown Race White Ethnic Group Not or Lati no Author Organization [facility] Address [address] [place] [address] Care Team Providers Care Paper Pattern Inspector Name Role Phone Nuzhat Salinas PA-C Primary Care Provider [phone] Reason for Visit * Reason Comments Follow-up Encounter Details Date Type Department Care Team (Latest Contact Info) Description 08/14/2024 1:30 PM EXECUTIVE DIRECTOR OF NURSING Office Visit [facility] [address] [place] [address] Adalberto Carbajal MD [address] [place] [address] Stage 3b chronic kidney disease (HCC) (Primary Dx); Hypertensive chronic kidney disease with stage 1 through stage 4 chronic kidney disease, or unspecified chronic kidney disease; Type 2 diabetes mellitus with diabetic chronic kidney disease (HCC); Secondary hyperparathyroidism of renal origin (HCC); Anemia in chronic kidney disease; Multi vessel coronary artery disease; Morbid obesity (HCC); Atrial fibrillation, not otherwise specified (HCC); Chronic diastolic congestive heart failure (HCC); Edema Social History Tobacco Use Types Packs/Day Years [...] on file documented as of this encounter Last Filed Vital Signs Vital Sign Reading Time Taken Comments Blood Pressure 134/64 08/14/2024 1:26 PM EXECUTIVE DIRECTOR OF NURSING Pulse 83 08/14/2024 1:26 PM EXECUTIVE DIRECTOR OF NURSING Temperature - - Respiratory Rate - - Oxygen Saturation 93% 08/14/2024 1:26 PM EXECUTIVE DIRECTOR OF NURSING Inhaled Oxygen Concentration - - Weight 143 kg (315 lb) 08/14/2024 1:26 PM EXECUTIVE DIRECTOR OF NURSING Height 177.8 cm (5' 10) 08/14/2024 1:26 PM EXECUTIVE DIRECTOR OF NURSING Body Mass Index 45.2 08/14/2024 1:26 PM EXECUTIVE DIRECTOR OF NURSING documented in this encounter Patient Instructions * Patient Instructions* Rachel Clifford - 08/14/2024 1:30 PM EXECUTIVE DIRECTOR OF NURSING Andres, Start taking spironolactone 25mg per day. Stop taking the potassium supplement. After 2 weeks, increase the torsemide to 2 tablets twice per day. Get a lab done prior to to check the kidney function and the potassium. Follow-up with me in 4 months with labs prior to the visit. Roberto Carbajal MD documented in this encounter Progress Notes * Adalberto Carbajal MD - 08/14/2024 1:30 PM CST Images from the original note were not included. Patient: Srinivasa Womack Date of : 1955 Chart: [id number] PCP: Nuzhat Salinas PA-C Date of Service: 08/14/2024 Chief Complaint: CKD Stage 3b Subjective: Andres is here today for follow-up. I have followed him for CKD stage 3b at [facility] previously and I followed him on dialysis in the past when he had BOWEN requiring dialysis in the past. He was hosiptalized in January of 2022 with sepsis and NSTEMI, developed renal failure with Cr >10. Was grossly volume overloaded. He was initiated on dialysis on 01/12/22 through [facility], dialyzed for 2 months (in hospital and then with me at [facility] until early March 2022). He was weaned off dialysis as renal function improved. Weight prior to HD initiation was 154 Kg, was dialyzed in hospital aggressively down to weight of 128 Kg.He was able to be weaned off dialysis as an outpatient after this hospital stay and has remained off dialysis since then. I have not seen him in over a year. He is doing ok, but has very limited mobility using wheelchair most of the time and walker with very short distances in the house like getting to the bathroom. Hasbad pain in hips. Retains fluid from above knees to feet. Has ongoing wound on R lower leg but it is healing, had cellulitis and was hospitalized at [facility] for 2 nights in June for this but infection is resolved. His BP at home is similar to in office today or a little higher, often 140's systolic. He states his goal is to heal wound and then have surgery to replace hip and get mobility back. SH: Lives in [place] Non-smoker Heavy drinker in past as [facility] [employer], now no alcohol use anymore He was [employer] for 40 years. Now on disability The following portions of the patient's chart were reviewed in this encounter and updated as appropriate: Tobacco Allergies Meds Problems Med Hx Surg Hx Fam Hx Active Problems Patient Active Problem List Diagnosis Iron deficiency anemia Stage 3b chronic kidney disease (HCC) Open wound of right lower leg Atrial fibrillation (HCC) Morbid obesity (HCC) Chronic pain syndrome Degeneration of lumbar intervertebral disc Gastroesophageal reflux disease Hyperlipidemia Insulin treated type 2 diabetes mellitus (HCC) Lymphedema Multi vessel coronary artery disease Primary coxarthrosis, bilateral Secondary hyperparathyroidism of renal origin (HCC) Type 2 diabetes mellitus with diabetic peripheral angiopathy without gangrene (HCC) 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 Taking? Provider aspirin (ST MARGARET) 81 MG EC tablet Rivas Keene MD Take 81 mg by mouth in the morning. carvedilol (COREG) 3.125 MG tablet Rivas Keene MD Take 3.125 mg by mouth in the morning and 3.125 mg in the evening. cholecalciferol (VITAMIN D-3 SUPER STRENGTH) 50 MCG (1999 UT) tablet Rivas Keene MD Take one tablet every 3rd day. Ciclopirox 8 % kit Rivas Keene MD Apply topically to affected area(s) at bedtime. clopidogrel (PLAVIX) 75 MG tablet Rivas Keene MD Take 75 mg by mouth 1 (one) time each day famotidine (PEPCID) 40 MG tablet Rivas Keene MD Take 40 mg by mouth 1 (one) time each day Insulin Lispro, 1 Unit Dial, 100 UNIT/ML solution pen-injector Rivas Keene MD Inject 12-14 units 3-4x/day. Product desired: HUMALOG KWIKPENINJECT 12 TO 14 UNITS 3 TO 4 TIMES PERDAY isosorbide mononitrate (IMDUR) 30 MG 24 hr tablet Rivas Keene MD Take 30 mg by mouth in the morning. Jardiance 10 MG tablet Rivas Keene MD Take by mouth 1 (one) time each day Lantus SoloStar 100 UNIT/ML injection Rivas Keene MD INJECT 50 UNITS EVERY MORNING AND 30 UNITS AT BEDTIME SUBCUTANEOUSLY. STRENGTH: 100 UNIT/ML (3 ML) Naftifine HCl 2 % cream Rivas Keene MD Apply topically to affected area(s) once daily. nitroglycerin (NITROSTAT) 0.4 MG SL tablet Rivas Keene MD 1 TAB UNDER TONGUE EVERY 5 MIN IF NEEDED FOR CHEST PAIN. CALL MD IF USING MORE THAN 24/30 DAYS oxyCODONE (ROXICODONE) 5 MG immediate release tablet Rivas Keene MD TAKE 1 TABLET THREE TIMES DAILY NEEDED FOR CHRONIC PAIN MAX 3/DAY Polyethylene Glycol 400 0.25 % solution Rivas Keene MD Place into the eye(s) each time if needed (dry eye). rosuvastatin (CRESTOR) 40 MG tablet Rivas Keene MD Take 40 mg by mouth in the morning. spironolactone (Aldactone) 25 MG tablet Adalberto Carbajal MD Take 1 tablet (25 mg total) by mouth 1 (one) time each day torsemide 40 MG tablet Adalberto Carbajal MD Take 40 mg by mouth in the morning and 40 mg in the evening. Xtampza ER 9 MG capsule extended-release 12 hour Rivas Keene MD TAKE 1 CAPSULE BY MOUTH EVERY 12 HOURS FOR CHRONIC PAIN ZINC GLUCONATE PO Rivas Keene MD Take one tablet every 3rd day. Allergies Allergen Reactions Diphenhydramine Hives Gabapentin Anxiety and Other (see comments) Shakiness Hydromorphone Nausea And Vomiting and Other (see comments) Hydroxyzine Anxiety and Hives Pravastatin Other (see comments) Dapagliflozin Other (see comments) and Swelling Leg swelling and achy bones Iodinated Contrast Media Other (see comments) Caused kidney failure Pregabalin Other (see comments) Valsartan Swelling Atorvastatin Other (see comments) Ciprofloxacin Itching and Other (see comments) Fentanyl Nausea And Vomiting and Other (see comments) Latex Hives, Itching and Other (see comments) Sulfa Antibiotics Rash Physical Exam BP 134/64 (BP Location: Right upper arm, Patient Position: Sitting, BP Cuff Size: Large adult) Pulse 83 Ht 5' 10 (1.778 m) Wt (!) 315 lb (143 kg) SpO2 93% BMI 45.20 kg/m?? CONSTITUTIONAL: morbidly obese man in wheelchair EYES: pupils equal, sclerae not icteric. RESPIRATORY: Clear to auscultation bilaterally, nl effort CARDIOVASCULAR: Regular rate and rhythm, no murmurs. 3+ leg edema b/l to thighs and wrapped lower legs GASTROINTESTINAL: bowel sounds active, not distended PSYCHIATRIC: Alert and pleasant INTEGUMENT: No visible rash on exposed skin MUSCULOSKELETAL: four limbs, no contractures Chemistry and Bone Mineral Lab Units 06/29/24 1225 12/20/23 0000 SODIUM mmol/L 137 140 POTASSIUM mmol/L 3.9 4.0 CHLORIDE mmol/L 96* 99 CO2 mmol/L 30 30* CALCIUM mg/dL 9.1 9.2 9.2 PHOSPHORUS mg/dL 3.6 3.7 PTH pg/mL 136* 112.0* GLUCOSE mg/dL 199* 132* ALBUMIN, S/P g/dL 3.7 -- ALBUMIN g/dL -- 3.9* BUN mg/dL 31* 34* CREATININE mg/dL 2.04* 2.02* EGFR mL/min/1.73m2 35* 35* CBC and Iron Studies Lab Units 12/20/23 0000 HEMOGLOBIN g/dL 12.0* MCV fL 90 No lab exists for component: GLUCOSEUR, BILIRUBINUR, SPECGRAV, RBCUR, LEUKOCYTESUR, NITRITE Imaging: TTE 02/07/2024: Final Impressions: 1. Technically limited exam. 2. [...] enhance visualization of all left ventricular segments. Renal Ultrasound 01/08/2022: 1. No signs of definite renal mass lesion or hydronephrosis. 2. Small punctate echogenic foci in the kidneys potentially could suggest some areas of nonobstructing calcification. 3. Moe catheter in the urinary bladder. Assessment and Plan: CKD Stage 3b CKD 2/2 DM, HTN, and BOWEN (01/2016 BOWEN with severe left leg wound infection, peak Cr 2.17 and then BOWEN requiring HD x2 months -03/2022). UA bland, has sub-gram proteinuria. I am actually surprised thathe does not have higher degree of proteinuria given poorly controlled DM for many years and advanced retinopathy and morbid obesity and he is not currently on ACEI/ARB or SGLT2i. -Cr improved after BOWEN-D to 2.0 range and is stable in this range since April 2022 -He did not tolerate losartan in past, severe hypotension and nearly passed out and will not use ACEI/ARB -He has gained weight, retaining more fluid, difficult to control as he also has lymphedema but I will start spironolactone 25mg, stop K 10 meq daily, and increase torsemide to 40mg bid (from 40/20).Repeat labs next month after this change. -A1C goal of <8% discussed with him, ideally 7% -He is at high risk of progression of CKD with poorly controlled MD, morbid obesity, and multiple other co-morbidities and now multiple BOWEN episodes. Will need to monitor closely. -The focus for CKD management should be adequate BP control (optimized), BS control (A1C now at goal), weight loss (discussed today), and avoidance of nephrotoxins (including NSAID's) HTN with hypertensive CKD Continue low salt diet, current medications, and add spironolactone and increase torsemide as discussed above T2DM with diabetic CKD, PAD, and retinopathy A1C was under 8% on last check, due for repeat. He can't tolerate ACEI/ARB for renal protection. Will continue Jardiance. Other DM meds defer to PCP. Secondary renal hyperparathyroidism PTH mildly elevated. Ca and phos at goal. Low phos diet recommended. Monitor labs. CAD with prior NSTEMI, Hx CABG and ABRAHAN x3 HFpEF A-fib NO current cardiac symptoms. I am adjusting diuretics as above. Morbid Obesity His weight has trended up, largely fluid wait responsible but he is also very stationary. We discussed need for weight loss, will work on fluid retention first as above. Return in about 4 months (around 12/12/2024). Labs in 1 month and then pre-visit if K is improved. Adalberto Carbajal MD [facility] documented in this encounter Plan of Treatment Upcoming Encounters Date Type Department Care Team (Late st Contact Info) Description 09/18/2024 Orders Only [facility] [place] [address] [address] Adalberto Carbajal MD [address] [place] [phone] Stage 3b chronic kidney disease (HCC) 12/11/2024 1:30 PM CDT Office Visit [facility] [place] [address] [place] [address] Adalberto Carbajal MD [address] [place] [phone] Scheduled Orders Name Type Priority Associated Diagnoses Orde r Schedule Basic metabolic panel Lab Routine Stage 3b chronic kidney disease (HCC) Expected: 09/18/2024 (Approximate), Expires: 09/13/2025 Renal function panel Lab Routine Stage 3b chronic kidney disease (HCC) Expected: 12/04/2024 (Approximate), Expires: 08/13/2025 Hemoglobin Lab Routine Stage 3b chronic kidney disease (HCC) Expected: 12/04/2024 (Approximate), Expires: 08/13/2025 PTH, intact Lab Routine Stage 3b chronic kidney disease (HCC) Expected: 12/04/2024 (Approximate), Expires: 08/13/2025 Urine Albumin / Creatinine Ratio Lab Routine Stage 3b chronic kidney disease (HCC) Expected: 12/04/2024 (Approximate), Expires: 08/13/2025 documented as of this encounter Visit Diagnoses Diagnosis Stage 3b chronic kidney disease (HCC)- Primary Hypertensive chronic kidney disease with stage 1 through stage 4 chronic kidney disease, or unspecified chronic kidney disease Type 2 diabetes mellitus with diabetic chronic kidney disease (HCC) Secondary hyperparathyroidism of renal origin (HCC) Secondary hyperparathyroidism of renal origin Anemia in chronic kidney disease Multi vessel coronary artery disease Morbid obesity (HCC) Morbid obesity Atrial fibrillation, not otherwise specified (HCC) Chronic diastolic congestive heart failure (HCC) Edema Stage 3b chronic kidney disease (HCC) documented in this encounter Care Teams Paper Pattern Inspector Relationship Specialty Start Date End Date Nuzhat Salinas PA-C [address] [place] [address] PCP - General Physician Flight Simulator Teacher 01/15/22 documented as of this encounter
--- OUTSIDE RECORDS SUMMARY | 2024-08-25 01:39 | XMS_ITS | Clinical Summary ---
Demographics Address [address] [place] [address] Mobile Phone Home Phone Email Address Preferred Language Chilean Marital Status Unknown Zoroastrianism Affiliation Jewish Race White Ethnic Group Not or Lati no Author Organization [facility] Address [place], [place] [address] Care Team Providers Care Licensed Loan Officer Assistant Name Role Phone Nuzhat Salinas Primary Care Provider [facility] [place] Unavailable [facility] [place] Unavailable Allergies Active Allergy Reactions Criticality Noted Date [...] daily with a meal. 0 01/25/20 14 Active Xtampza ER 9 mg CSpA Take 1 Capsule by mouth every 12 hours. 08/13/20 22 Active oxyCODONE (ROXICODONE) 5 mg immediate release [...] Take one tablet every 3rd day. Active nitroglycerin (NITROSTAT) 0.4 mg sublingual tabletIndications: NSTEMI (non-ST elevated myocardial infarction) (HC) 1 TAB UNDER TONGUE EVERY 5 MIN IF NEEDED FOR CHEST PAIN. CALL MD IF USING MORE THAN DAYS 75 Tablet 11/30/19 24 Active carvediloL (COREG) 3.125 mg tabletIndications: Heart failure with preserved ejection fraction, unspecified HF chronicity (HC),Essential hypertension TAKE 1 TABLET (3.125 MG) BY MOUTH TWO TIMES DAILY WITH MEALS. 180 Tablet 3 01/06/20 24 Active isosorbide mononitrate (IMDUR) 30 mg extended release tablet 24 HourIndications:He art failure, unspecified HF chronicity, unspecified heart failure type (HC) Take 1 Tablet (30 mg) by mouth once daily. 30 Tablet 11 01/21/20 24 Active clopidogreL (PLAVIX) 75 mg tabletIndications: NSTEMI (non-ST elevated myocardial infarction) (HC) TAKE 1 TABLET BY MOUTH ONCE DAILY. 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 STRENGTH: 100 UNIT/ML (3 ML) 90 mL 1 04/03/20 24 Active HumaLOG KwikPen Insulin 100 unit/mL inpn penIndications:Typ e 2 diabetes mellitus with diabetic peripheral angiopathy without gangrene, with long-term current use of insulin (HC) Inject 12-14 units 3-4x/day. Product desired: HUMALOG KWIKPENINJECT 12 TO 14 UNITS 3 TO 4 TIMES PER DAY 45 Each 3 05/12/20 24 Active Jardiance 10 mg tabletIndications: Type 2 diabetes mellitus with diabetic peripheral angiopathy without gangrene, with long-term current use of insulin (HC) TAKE 1 TABLET BY MOUTH EVERY DAY 30 Tablet 3 06/06/20 24 Active famotidine (PEPCID) 40 mg tabletIndications: Gastroesophageal reflux disease, unspecified whether esophagitis present TAKE 1 TABLET BY MOUTH EVERY DAY 90 Tablet 2 06/07/20 24 Active torsemide (DEMADEX) 20 mg tabletIndications: Stage 3b chronic kidney disease (HC),Peripheral edema Take 2 Tablets (40 mg) by mouth every 12 hours. 120 Tablet 08/19/20 24 Active FreeStyle Nj 3 Plus Sensor for continuous blood glucose monitor (CGM)Indications:T ype 2 diabetes mellitus with diabetic peripheral angiopathy without gangrene, with long-term current use of insulin (HC) To be used to read blood sugars, follow associate financial planner directions. 6 Each 3 08/23/20 24 Active continuous glucose monitor SENSOR KIT (FREESYLE NJ)Indications: Type 2 diabetes mellitus with diabetic peripheral angiopathy without gangrene, with long-term current use of insulin (HC) To be used to read blood sugars per associate financial planner's directions. 1 Each 07/20/20 22 024 Discontinued(Ot her - add note to specify (E-cancel not sent)) torsemide (DEMADEX) 20 mg tabletIndications: Stage 3b chronic kidney disease (HC),Peripheral edema Take 2 tablets in the morning and 1 tablet in the afternoon 270 Tablet 3 12/25/19 23 024 Discontinued continuous glucose monitor READER (FREESYLE NJ)Indications: Type 2 diabetes mellitus with diabetic peripheral angiopathy without gangrene, with long-term current use of insulin (HC) To be used to read blood sugars per associate financial planner's directions. 1 Each 10/29/19 24 024 Discontinued(Ph armacist change per medication history (E-cancel not sent)) continuous glucose monitor SENSOR KIT (FREESYLE NJ)Indications: Type 2 diabetes mellitus with diabetic peripheral angiopathy without gangrene, with long-term current use of insulin (HC) To be used to read blood sugars per associate financial planner's directions. 6 Each 3 11/26/19 24 024 Discontinued(Ph armacist change per medication history (E-cancel not sent)) Shower ChairIndications:P rimary osteoarthritis of hips, bilateral For home use. 1 Each 11/30/19 24 024 Discontinued(Ot her - add note to specify (E-cancel not sent)) FreeStyle Nj 3 Sensor for continuous blood glucose monitor (CGM)Indications:T ype 2 diabetes mellitus with diabetic peripheral angiopathy without gangrene, with long-term current use of insulin (HC) To be used to read blood sugars per associate financial planner's directions. 1 Each 3 12/06/19 24 024 Discontinued(Ph armacist change per medication history (E-cancel not sent)) Insulin [place], Disposable, 32 gauge x 5/32Indications:T ype 2 diabetes mellitus with diabetic peripheral angiopathy without gangrene (HC) As directed. Use with 5-6 times a day insulin. As covered by insurance. Remove the 2 covers on the insulin pen needle before administering insulin dose. 500 Each 3 01/07/20 24 024 Discontinued(Ph armacist change per medication history (E-cancel not sent)) durable medical equipment (DME)Indications:P rimary osteoarthritis of hips, bilateral,DDD (degenerative disc disease), lumbar,Coronary artery disease involving onondaga heart without angina pectoris, unspecified vessel or lesion type,Stage 3b chronic kidney disease (HC),Type 2 diabetes mellitus with other skin ulcer, with long-term current use of insulin (HC) Electric scooter to use for mobility 1 Each 04/03/20 24 024 Discontinued(Ot her - add note to specify (E-cancel not sent)) Chair LiftIndications:Pr imary osteoarthritis of hips, bilateral,DDD (degenerative disc disease), lumbar For home use. 1 Each 04/17/20 24 024 Discontinued(Ot her - add note to specify (E-cancel not sent)) FreeStyle Nj 3 Plus Sensor for continuous blood glucose monitor (CGM)Indications:T ype 2 diabetes mellitus with diabetic peripheral angiopathy without gangrene, with long-term current use of insulin (HC) To be used to read blood sugars, follow associate financial planner directions. 6 Each 3 08/04/20 24 024 Discontinued(Ph armacist change per medication history (E-cancel not sent)) torsemide (DEMADEX) 20 mg tabletIndications: Stage 3b chronic kidney disease (HC),Peripheral edema Take 2 Tablets (40 mg) by mouth every 12 hours. Take 2 tablets in the morning and 1 tablet in the afternoon 120 Tablet 08/19/20 24 024 Discontinued Active Problems Problem Noted Date Diagnosed Date SOB (shortness of breath) 08/19/2024 Mitral stenosis 08/19/2024 Hypertension 08/19/2024 Insulin dependent type 2 diabetes mellitus 07/01 [...] agreement broken 08/08/2018 Overview (08/08/2018): 08/08/18 at [facility] Lymphedema 04/29/2018 Gastroesophageal reflux disease 04/29/2016 Stage [...] 01/30/2016 08/12/2023 Coronary artery disease invo lving onondaga coronary artery of onondaga heart without angina pectoris 11/15/2015 08/12/2023 Vitamin [...] anterior descending and elsewhere. Ejection fraction after DC 60-65%. HTN (hypertension) 12/03/2010 8 Hemorrhage anterior chamber eye 08/12/2023 Overview (06/29/2015): happened twice sep 2013 Chest wall pain following surgery 08/12/2023 Chronic left hip pain 2022 Encounters Date Type Department Care Team Description 08/22/2024 Telephone [facility] [address] [place] [address] Nuzhat Salinas PA Refill Request (Alternative Requested -- FREESTYLE NJ 3 SENSOR) 08/22/2024 Home Care Visit [facility] [address] [place] [address] Sury Garza, RN CARE COORDINATION 08/21/2024 Patient Outreach [facility] [address] [place] [address] Lyn Roldan, RN Primary RN Care Management; Hospital F/U ([facility] 73) 08/18/2024 5:21 PM GEOGRAPHIC AREA INTELLIGENCE OFFICER - 08/19/2024 2:37 PM GEOGRAPHIC AREA INTELLIGENCE OFFICER Hospital Encounter [facility] [address] [place] [address] Linda Ramirez MD [facility], [facility] Hospitalists [facility], MD Jenna Park, Lilly Yanez MD Acute pulmonary edema (HC) (Primary Dx); Shortness of breath; Stage 3b chronic kidney disease (HC); Peripheral edema Discharge Disposition: Home Self Care 08/18/2024 Travel 08/18/2024 Telephone [facility] [address] [place] [address] Telly Field MD Referral 08/04/2024 Telephone [facility] [address] [place] [address] Nuzhat Salinas PA Medication Management (FreeStyle Nj 3 Sensor plus) 07/28/[address] [address] Nuzhat Salinas PA Medication Management (Lyrica) 07/20/[address] [place] [address] Mic Baldwin MD Results (monitor) 07/18/2024 Nurse Triage [address] [place] [address] Nuzhat Salinas PA Took too much humalog 07/13/2024 2:00 PM CDT Office Visit [facility] [address] [place] [address] Wound Check 07/13/2024 Travel 07/12/2024 Telephone [facility] [address] [place] [address] Nuzhat Salinas PA Questions 07/06/2024 1:50 PM CDT Office Visit [facility] [address] [place] [address] Telly Field MD Hospital F/U (DOS: 07/03/2024 [facility]/RIGHT Leg Cellulitis ) 07/06/2024 Travel 07/05/[address] [address] Mic Baldwin MD Side Effect 07/04/2024 Patient Outreach [facility] [address] [place] [address] Lyn Roldan RN Primary RN Care Management; Hospital F/U (LACE 74) 07/01/2024 12:15 AM CDT - 07/03/2024 1:14 PM CDT Hospital Encounter [facility] [address] [place] [address] Ada Fonseca PA Geiger, Nicholas Allen, [facility], [facility] Hospitalists Of Andrés Adames DO Storlie, Erik John, MD Residents, Dave Rousseau MD Cellulitis of right leg (Primary Dx); Bilateral lower extremity edema Discharge Disposition: Home Self Care 07/01/2024 Travel 06/29/2024 1:00 PM CDT Orders Only [facility] [address] [address] Lab 06/29/2024 Travel 06/26/2024 Telephone [facility] [address] [place] [address] Nuzhat Salinas PA Appointment (Appointment situation ) 06/19/[address] [place] [address] Mic Baldwin MD Medication Management 06/15/2024 2:00 PM CDT Office Visit [facility] [address] [place] [address] Wound Check 06/15/2024 Travel 06/04/2024 Refill [facility] [address] [place] [address] Nuzhat Salinas PA Refill Request (Famotidine) 06/03/2024 Refill [facility] [address] [place] [address] Nuzhat Salinas PA Refill Request (Jardiance) from Last 3 Months Immunizations Name Administration Dates Next Due COVID-19 vaccine (SaySwap-Bio NTech 30mcg/0.3mL) 12YO+ BIVALENT PF, MDV 07/02/2022 [...] 0 03/19/2021 Social Connections Answer Date Recorded Do you often feel lonely or isolated from those around you? 0 08/18/2024 Financial Resource Strain Answer Date R ecorded Difficulty of Paying Living Expenses 2 08/19/2024 Difficulty of Paying Living Expenses 1 08/19/2024 Food Insecurity Answer Date Recorded Do you worry your food will run out before you are able to buy more? 2 08/18/2024 Transportation Needs Answer Date Record ed Does lack of transportation keep you from medica l appointments? 1 08/18/2024 Does lack of transportation keep you from work, meetings or getting things that you need? 1 08/18/2024 Housing Stability Answer Date Recorded What is your housing situation today? 1 08/18/2024 Sex and Gender Information Value Date Recorded Sex Assigned at Not on file Gender Identity Not on file Sexual Orientation Not on file Obstetrics History Last Filed Vital Signs Vital Sign Reading Time Taken Comments Blood Pressure 122/60 08/19/2024 11:40 AM GEOGRAPHIC AREA INTELLIGENCE OFFICER Pulse 71 08/19/2024 11:40 AM GEOGRAPHIC AREA INTELLIGENCE OFFICER Temperature 36.7 C (98 F) 08/19/2024 11:40 AM GEOGRAPHIC AREA INTELLIGENCE OFFICER Respiratory Rate 18 08/19/2024 11:4 0 AM GEOGRAPHIC AREA INTELLIGENCE OFFICER Oxygen Saturation 97% 08/19/2024 11: 40 AM GEOGRAPHIC AREA INTELLIGENCE OFFICER Inhaled Oxygen Concentration - - Weight 143.1 kg (315 lb 7.7 oz) 08/19/2024 4:25 AM GEOGRAPHIC AREA INTELLIGENCE OFFICER Height 177.8 cm (5' 10) 08/18/2024 5:13 PM GEOGRAPHIC AREA INTELLIGENCE OFFICER Body Mass Index 45.27 08/18/2024 5:13 PM GEOGRAPHIC AREA INTELLIGENCE OFFICER Plan of Treatment Upcoming Encounters Date Type Department Care Team (Late st Contact Info) Description 08/25/2024 10:30 AM GEOGRAPHIC AREA INTELLIGENCE OFFICER Telemedicine [facility] [address] [facility] [place] [address] Nuzhat Salinas PA [address] [facility] [address] 08/26/2024 4:00 AM GEOGRAPHIC AREA INTELLIGENCE OFFICER Appointment [facility] [address] [place] [phone] Kristie Sommer RN 09/08/2024 11:15 AM GEOGRAPHIC AREA INTELLIGENCE OFFICER Office Visit [facility] [address] [place], [place] [id number] Health Maintenance Due Date Last Done Comments [...] Date/Time Associated Diagnosis Comments GLUCOSE METER Timed 08/19/2024 11:34 AM GEOGRAPHIC AREA INTELLIGENCE OFFICER SCAN-CARDIAC STRIP 08/19/2024 9: 38 AM GEOGRAPHIC AREA INTELLIGENCE OFFICER GLUCOSE METER Timed 08/19/2024 7:22 AM GEOGRAPHIC AREA INTELLIGENCE OFFICER HEMOGLOBIN Early AM 08/19/2024 6:50 AM GEOGRAPHIC AREA INTELLIGENCE OFFICER ELECTROLYTE PANEL Early AM 08/19/2024 6:5 0 AM GEOGRAPHIC AREA INTELLIGENCE OFFICER CREATININE Early AM 08/19/2024 6:50 AM GEOGRAPHIC AREA INTELLIGENCE OFFICER SCAN-CARDIAC STRIP 08/18/2024 11 :59 PM GEOGRAPHIC AREA INTELLIGENCE OFFICER GLUCOSE METER Timed 08/18/2024 10:26 PM GEOGRAPHIC AREA INTELLIGENCE OFFICER TROPONIN T (HS) ONE TIME STAT 08/18/2024 9:41 PM GEOGRAPHIC AREA INTELLIGENCE OFFICER EKG 12 LEAD STAT 08/18/2024 8:06 PM GEOGRAPHIC AREA INTELLIGENCE OFFICER EXTRA TUBE BLUE Today 08/18/2024 6:01 PM GEOGRAPHIC AREA INTELLIGENCE OFFICER TROPONIN T (HS) ONE TIME YANICK 08/18/2024 5:53 PM GEOGRAPHIC AREA INTELLIGENCE OFFICER PRO-BNP YANICK 08/18/2024 5:53 PM GEOGRAPHIC AREA INTELLIGENCE OFFICER BASIC METABOLIC PANEL STAT 08/18/2024 5:53 PM GEOGRAPHIC AREA INTELLIGENCE OFFICER CBC W PLT NO DIFF STAT 08/18/2024 5:5 3 PM GEOGRAPHIC AREA INTELLIGENCE OFFICER XR CHEST 2 VIEWS PA AND LATERAL STAT 08/18/2024 5:45 PM GEOGRAPHIC AREA INTELLIGENCE OFFICER CBC WITH AUTO DIFFERENTIAL Routine 07/06/2024 2:57 PM CDT BASIC METABOLIC PANEL Routine 07/06/2024 2:57 PM CDT Cellulitis of right leg GLUCOSE METER Timed 07/03/2024 11:49 AM CDT WHITE BLOOD COUNT Early AM 07/03/2024 6:5 5 AM CDT CREATININE Early AM 07/03/2024 6:55 AM CDT ELECTROLYTE PANEL Early AM 07/03/2024 6:5 5 AM CDT GLUCOSE METER Timed 07/03/2024 6:46 AM CDT SCAN-CARDIAC STRIP 07/03/2024 2: 09 AM CDT GLUCOSE METER Timed 07/02/2024 10:07 PM CDT GLUCOSE METER Timed 07/02/2024 5:17 PM CDT POTASSIUM Timed 07/02/2024 4:21 PM CDT GLUCOSE METER Timed 07/02/2024 12:12 PM CDT POTASSIUM Timed 07/02/2024 7:20 AM CDT WHITE BLOOD COUNT Early AM 07/02/2024 7:2 0 AM CDT CREATININE Early AM 07/02/2024 7:20 AM CDT ELECTROLYTE PANEL Early AM 07/02/2024 7:2 0 AM CDT PLATELET COUNT Timed 07/02/2024 7:20 AM CDT MAGNESIUM Early AM 07/02/2024 7:20 AM CDT GLUCOSE METER Timed 07/02/2024 6:34 AM CDT [...] CDT EXTRA TUBE SIMON ON ICE STAT 2:02 AM CDT ISTAT LACTATE SCREEN VENOUS [...] LIPID PANEL Early AM 08/13/2023 6:54 AM GEOGRAPHIC AREA INTELLIGENCE OFFICER OCCULT BLOOD IFOBT STOOL Routine 03/06/2019 7:41 AM CDT Screening for colorectal cancer EXPOSURE (BBF) ANTI HCV STAT 03/02/2018 10:45 AM CDT from Last 3 Months or Most Recently Relevant to Health Maintenance Results * (ABNORMAL) GLUCOSE METER (08/19/2024 11:34 AM GEOGRAPHIC AREA INTELLIGENCE OFFICER) Only the most recent of15 resultswithin the time period is included. GLUCOSE METER 284(H) 65 - 100 mg/dL 08/19/2024 11:35 AM GEOGRAPHIC AREA INTELLIGENCE OFFICER [facility] Blood BLOOD SPECIMEN / Unknown 08/19/2024 11:34 AM GEOGRAPHIC AREA INTELLIGENCE OFFICER 08/19/2024 11:35 AM GEOGRAPHIC AREA INTELLIGENCE OFFICER Lilly West MD CHEMISTRY [facility] [address] [place] [address], * SCAN-CARDIAC STRIP (08/19/2024 9:38 AM GEOGRAPHIC AREA INTELLIGENCE OFFICER) Scanner OTHER * (ABNORMAL) HEMOGLOBIN (08/19/2024 6:50 AM GEOGRAPHIC AREA INTELLIGENCE OFFICER) HEMOGLOBIN 11.4(L) 13.5 - 17.5 g/dL 08/19/2024 7:27 AM GEOGRAPHIC AREA INTELLIGENCE OFFICER [facility] MCV 88 80 - 100 fL 08/19/2024 7:27 AM GEOGRAPHIC AREA INTELLIGENCE OFFICER [facility] Blood BLOOD SPECIMEN / Unknown Venipuncture / Unknown 08/19/2024 6:50 AM GEOGRAPHIC AREA INTELLIGENCE OFFICER 08/19/2024 7:20 AM GEOGRAPHIC AREA INTELLIGENCE OFFICER Yadira Mckoy MD HEMATOLOGY Performing Organization Address [facility] Co de Phone Number [facility] [address] [place] [address], * (ABNORMAL) CREATININE (08/19/2024 6:50 AM GEOGRAPHIC AREA INTELLIGENCE OFFICER) Only the most recent of3 resultswithin the time period is included. eGFR 35(L) >90 mL/min/1.7 3m2 08/19/2024 7:51 AM GEOGRAPHIC AREA INTELLIGENCE OFFICER [facility] Comment:As of 2021, eG FR is calculated by the CKD-EPI creatinine equation without race adjustment. eGFR can be influenced by muscle mass, exercise, and diet. The reported eGFR is an estimation only and is only applicable if the renal function is stable. CREATININE 2.04(H) 0.70 - 1.20 mg/dL 08/19/2024 7:51 AM GEOGRAPHIC AREA INTELLIGENCE OFFICER [facility] Blood BLOOD SPECIMEN / Unknown Venipuncture / Unknown 08/19/2024 6:50 AM GEOGRAPHIC AREA INTELLIGENCE OFFICER 08/19/2024 7:20 AM GEOGRAPHIC AREA INTELLIGENCE OFFICER Yadira Mckoy MD CHEMISTRY Performing Organization Address City/[facility] Co de Phone Number [facility] [address] [place] [address], [place] * (ABNORMAL) Electrolyte panel AM (08/19/2024 6:50 AM GEOGRAPHIC AREA INTELLIGENCE OFFICER) Only the most recent of3 resultswithin the time period is included. SODIUM 137 136 - 145 mmol/L 08/19/2024 7:51 AM GEOGRAPHIC AREA INTELLIGENCE OFFICER [facility] POTASSIUM 4.2 3.5 - 5.1 mmol/L 08/19/2024 7:51 AM GEOGRAPHIC AREA INTELLIGENCE OFFICER [facility] CHLORIDE 97(L) 98 - 107 mmol/L 08/19/2024 7:51 AM GEOGRAPHIC AREA INTELLIGENCE OFFICER [facility] CO2,TOTAL 28 22 - 29 mmol/L 08/19/2024 7:51 AM GEOGRAPHIC AREA INTELLIGENCE OFFICER [facility] ANION GAP 12 5 - 18 08/19/2024 7:51 AM GEOGRAPHIC AREA INTELLIGENCE OFFICER [facility] Blood BLOOD SPECIMEN / Unknown Venipuncture / Unknown 08/19/2024 6:50 AM GEOGRAPHIC AREA INTELLIGENCE OFFICER 08/19/2024 7:20 AM GEOGRAPHIC AREA INTELLIGENCE OFFICER Yadira Mckoy MD CHEMISTRY [facility] [address] [place] [address], * SCAN-CARDIAC STRIP (08/18/2024 11:59 PM GEOGRAPHIC AREA INTELLIGENCE OFFICER) Scanner OTHER * (ABNORMAL) TROPONIN T (HS) ONE TIME (08/18/2024 9:41 PM GEOGRAPHIC AREA INTELLIGENCE OFFICER) Only the most recent of2 resultswithin the time period is included. TROPONIN T HS 77(H) 6-15 ng/L ng/L 08/18/2024 10:19 PM GEOGRAPHIC AREA INTELLIGENCE OFFICER [facility] Blood BLOOD SPECIMEN / Unknown Venipuncture / Unknown 08/18/2024 9:41 PM GEOGRAPHIC AREA INTELLIGENCE OFFICER 08/18/2024 9:54 PM GEOGRAPHIC AREA INTELLIGENCE OFFICER Narrative [facility] - 08/18/2024 10:19 PM GEOGRAPHIC AREA INTELLIGENCE OFFICER hs-cTnT (Elecsys Troponin T Gen 5) concentration (s) above the sex-specific 99th percentile (16 ng/L or greater for males or 11 ng/L or greater for females) are indicative of myocardial injury. If initial hs-cTnT <=100 ng/L at presentation, a 0h/2h ABSOLUTE (ng/L) delta change (rising or falling) of >=10 ng/L suggests a significant change, whereas a 0h/2h delta change <=3 ng/L suggests no significant change. If initial hs-cTnT >100 ng/L at presentation, a 0h/2h/ RELATIVE (percent, %) delta change of 20% is suggested to distinguish patients with acute vs. chronic myocardial injury. There are multiple etiologies that can cause hs-cTnT increases above the 99th percentile (myocardial injury) other than acute myocardial infarction. Clinical context and careful clinical evaluation are critical for diagnosis and risk-stratification. The diagnosis of acute myocardial infarction requires a rising and/or falling pattern in hs-cTnT concentrations with at least one value above the sex-specific 99th percentile PLUS at least one of the following clinical criteria: ischemic symptoms, new or presumed new significant ST-T wave changes or new LBBB, development of pathological Q waves, imaging evidence of new loss of viable myocardium or new regional wall motion abnormality, or identification of intracoronary atherothrombosis or an acute angiographic culprit on coronary angiography. In appropriate low-risk patients with a non-ischemic electrocardiogram without active chest pain with a symptom onset >3-hours without recurrence, a single initial hs-cTnT<6 ng/L identifies patient with a very low risk in emergency department patient population. Linda Ramirez MD CHEMISTRY Performing Organization Address [facility] de Phone Number [facility] [address] [place] [address], * EKG 12 LEAD (08/18/2024 8:06 PM GEOGRAPHIC AREA INTELLIGENCE OFFICER) Interpretation Sinus rhythm with 1st degree A-V block Right bundle branch block Inferior infarct , age undetermined Abnormal ECG Compared to ekg of 17-JAN-2024, No significant change was found BEYOND NOW Ventricular Rate 73 BPM BEYOND NOW Atrial Rate 73 BPM BEYOND NOW P-R Interval 250 ms BEYOND NOW QRS Duration 136 ms BEYOND NOW QT 444 ms BEYOND NOW QTc 489 ms BEYOND NOW P [place] 27 degrees BEYOND NOW R [place] -14 degrees BEYOND NOW T [place] 99 degrees BEYOND NOW 08/18/2024 8:06 PM GEOGRAPHIC AREA INTELLIGENCE OFFICER 08/19/2024 12:24 PM GEOGRAPHIC AREA INTELLIGENCE OFFICER Linda Ramirez MD EKG ORD Performing Organization Address [facility] de Phone Number BEYOND NOW [place], [place] * EXTRA TUBE BLUE (08/18/2024 6:01 PM GEOGRAPHIC AREA INTELLIGENCE OFFICER) Blood BLOOD SPECIMEN / Unknown Non-Lab Venipuncture / Unknown 08/18/2024 6:01 PM GEOGRAPHIC AREA INTELLIGENCE OFFICER 08/18/2024 6:01 PM GEOGRAPHIC AREA INTELLIGENCE OFFICER Colin De León MD LABORATORY [facility] [address] [place] [address], [place] * (ABNORMAL) CBC W PLT NO DIFF (08/18/2024 5:53 PM GEOGRAPHIC AREA INTELLIGENCE OFFICER) WHITE BLOOD COUNT 8.3 4.5 - 11.0 thou/cu mm 08/18/2024 6:06 PM [facility] RED BLOOD COUNT 4.08(L) 4.30 - 5.90 mil/cu mm 08/18/2024 6:06 PM [facility] HEMOGLOBIN 11.1(L) 13.5 - 17.5 g/dL 08/18/2024 6:06 PM [facility] HEMATOCRIT 36.5(L) 37.0 - 53.0 % 08/18/2024 6:06 PM [facility] MCV 90 80 - 100 fL 08/18/2024 6:06 PM [facility] MCH 27.2 26.0 - 34.0 pg 08/18/2024 6:06 PM [facility] MCHC 30.4(L) 32.0 - 36.0 g/dL 08/18/2024 6:06 PM [facility] RDW 14.3 11.5 - 15.5 % 08/18/2024 6:06 PM [facility] PLATELET COUNT 252 140 - 440 thou/cu mm 08/18/2024 6:06 PM [facility] MPV 9.8 6.5 - 11.0 fL 08/18/2024 6:06 PM [facility] NRBC 0.0 % 08/18/2024 6:06 PM [facility] ABS NRBC 0.0 thou /cu mm 08/18/2024 6:06 PM GEOGRAPHIC AREA INTELLIGENCE OFFICER [employer] Blood BLOOD SPECIMEN / Unknown Butterfly / Unknown 08/18/2024 5:53 PM GEOGRAPHIC AREA INTELLIGENCE OFFICER 08/18/2024 6:00 PM GEOGRAPHIC AREA INTELLIGENCE OFFICER Anw Ed Triage HEMATOLOGY Performing Organization Address [facility] Co de Phone Number [facility] [address] [address], [place] * (ABNORMAL) PRO-BNP (08/18/2024 5:53 PM GEOGRAPHIC AREA INTELLIGENCE OFFICER) Only the most recent of2 resultswithin the time period is included. PRO-BNP 1,000(H) <125 pg/mL 08/18/2024 8:18 PM GEOGRAPHIC AREA INTELLIGENCE OFFICER [facility] Blood BLOOD SPECIMEN / Unknown Butterfly / Unknown 08/18/2024 5:53 PM GEOGRAPHIC AREA INTELLIGENCE OFFICER 08/18/2024 6:00 PM GEOGRAPHIC AREA INTELLIGENCE OFFICER Narrative [facility] - 08/18/2024 8:18 PM GEOGRAPHIC AREA INTELLIGENCE OFFICER The following cut-points have been suggested for the use of proBNP for the diagnostic evaluation of heart failure (HF) in patient with acute dyspnea. Patients with eGFR >= 60 Diagnosis (rule in CHF) <50 Years Old 450 pg/mL 50 - 75 Years Old 900 pg/mL >75 Years Old 1800 pg/mL Exclusion (rule out CHF) Age Independent 300 pg/mL A cutoff of 1200 pg/mL for patients with an eGFR <60 yields a diagnostic sensitivity of 89% and specificity of 72% for acute congestive heart failure. Linda Ramirez MD SEND OUTS Performing Organization Address [facility] Co de Phone Number [facility] [address] [address], [place] * (ABNORMAL) BASIC METABOLIC PANEL (08/18/2024 5:53 PM GEOGRAPHIC AREA INTELLIGENCE OFFICER) Only the most recent of3 resultswithin the time period is included. SODIUM 139 136 - 145 mmol/L 08/18/2024 6:25 PM [facility] POTASSIUM 3.5 3.5 - 5.1 mmol/L 08/18/2024 6:25 PM [facility] CHLORIDE 101 98 - 107 mmol/L 08/18/2024 6:25 PM [facility] CO2,TOTAL 30(H) 22 - 29 mmol/L 08/18/2024 6:25 PM [facility] ANION GAP 8 5 - 18 08/18/2024 6:25 PM [facility] GLUCOSE 128(H) 70 - 99 mg/dL 08/18/2024 6:25 PM [facility] CALCIUM 8.9 8.8 - 10.4 mg/dL 08/18/2024 6:25 PM [facility] Comment: Reference ranges for this test were updated on 08/08/2024 to reflect our healthy population more accurately. Reference range changes are not retroactively applied to results, but previous results using the same methodology can be interpreted in the context of the new reference range. BUN 30(H) 8 - 23 mg/dL 08/18/2024 6:25 PM [facility] CREATININE 2.19(H) 0.70 - 1.20 mg/dL 08/18/2024 6:25 PM [facility] BUN/CREAT RATIO 14 10 - 20 4 6:25 PM [facility] eGFR 32(L) >90 mL/min/1. 73m2 08/18/2024 6:25 PM [facility] Comment:As of 2021, eG FR is calculated by the CKD-EPI creatinine equation without race adjustment. eGFR can be influenced by muscle mass, exercise, and diet. The reported eGFR is an estimation only and is only applicable if the renal function is stable. Blood BLOOD SPECIMEN / Unknown Butterfly / Unknown 08/18/2024 5:53 PM GEOGRAPHIC AREA INTELLIGENCE OFFICER 08/18/2024 6:00 PM GEOGRAPHIC AREA INTELLIGENCE OFFICER Anw Ed Triage CHEMISTRY [facility] [address] [place] [address], [place] * XR CHEST 2 VIEWS PA AND LATERAL (08/18/2024 5:45 PM GEOGRAPHIC AREA INTELLIGENCE OFFICER) Only the most recent of2 resultswithin the time period is included. Anatomical Region Laterality Modality CHEST, THORAX, Lung, HEART Digit al Radiography 08/18/2024 6:01 PM GEOGRAPHIC AREA INTELLIGENCE OFFICER Impressions 08/18/2024 6:01 PM GEOGRAPHIC AREA INTELLIGENCE OFFICER Stable mild cardiomegaly with interstitial opacities which may represent mild pulmonary edema. Possible small left-sided pleural effusion. Dictated by Salma Kenyon MD @ 08/18/2024 6:01:01 PM (Electronically Signed) Narrative 08/18/2024 6:01 PM GEOGRAPHIC AREA INTELLIGENCE OFFICER For Patients: As a result of the Cures Act, medical imaging exams and procedure reports are released immediately into your electronic medical record. You may view this report before your referring provider. If you have questions, please contact your health care provider. INDICATION: Shortness of breath. TECHNIQUE: Chest 2 views. COMPARISON: June 23, 2024. FINDINGS: Cardiovascular and mediastinum: Cardiomediastinal silhouette is stable. Lungs and pleural spaces: Slightly low lung volumes. Subtle perihilar interstitial opacities. Blunting of the left CP angle may harbor pleural effusion or pleural thickening. No pneumothorax. Bones and soft tissues: No significant findings. Procedure Note Salma Kenyon MD - 08/18/2024 For Patients: As a result of the Cures Act, medical imagingexams and procedure reports are released immediately into your electronicmedical record. You may view this report before your referring provider.If you have questions, please contact your health care provider. INDICATION: Shortness of breath. TECHNIQUE: Chest 2 views. COMPARISON: June 23, 2024. FINDINGS: Cardiovascular and mediastinum: Cardiomediastinal silhouette is stable. Lungs and pleural spaces: Slightly low lung volumes. Subtle perihilarinterstitial opacities. Blunting of the left CP angle may harbor pleuraleffusion or pleural thickening. No pneumothorax. Bones and soft tissues: No significant findings. IMPRESSION: Stable mild cardiomegaly with interstitial opacities which may representmild pulmonary edema. Possible small left-sided pleural effusion. Dictated by Salma Kenyon MD @ 08/18/2024 6:01:01 PM (Electronically Signed) Anw Ed Triage GENERAL IMAGING * (ABNORMAL) CBC WITH AUTO DIFFERENTIAL (07/06/2024 2:57 PM CDT) Only the most recent of2 resultswithin the time period is included. WHITE BLOOD CELL COUNT 11.1(H) 3.8 - 10.8 Thousand/u L [facility] RED BLOOD CELL COUNT 4.48 4.20 - 5.80 Million/uL [facility] HEMOGLOBIN 12.4(L) 13.2 - 17.1 g/dL [facility] HEMATOCRIT 40.5 38.5 - 50.0 % [facility] MCV 90.4 80.0 - 100.0 fL [facility] MCH 27.7 27.0 - 33.0 pg [facility] MCHC 30.6(L) 32.0 - 36.0 g/dL [facility] Comment: For adults, a slight decrease in the calculated MCHC value (in the range of 30 to 32 g/dL) is most likely not clinically significant; however, it should be interpreted with caution in correlation with other red cell parameters and the patient's clinical condition. RDW 13.1 11.0 - 15.0 % [facility] PLATELET COUNT 366 140 - 400 Thousand/u L [facility] MPV 10.4 7.5 - 12.5 fL [facility] ABSOLUTE NEUTROPHILS 8,558(H) 1,500 - 7,800 cells/uL [facility] ABSOLUTE LYMPHOCYTES 1,121 850 - 3,900 cells/uL [facility] ABSOLUTE MONOCYTES 977(H) 200 - 950 cells/uL [facility] ABSOLUTE EOSINOPHILS 377 15 - 500 cells/uL [facility] ABSOLUTE BASOPHILS 67 0 - 200 cells/uL [facility] NEUTROPHILS 77.1 % [facility] LYMPHOCYTES 10.1 % [facility] MONOCYTES 8.8 % [facility] EOSINOPHILS 3.4 % [facility] BASOPHILS 0.6 % [facility] 07/06/2024 2:57 PM CDT 07/06/2024 2:58 PM CDT Telly Field MD HEMATOLOGY Performing Organization Address City/[facility]/ZIP Co de Phone Number [employer] [facility] [address] [place] [address], [place] [phone] [facility] [address] [place] [address] * WBC AM (07/03/2024 6:55 AM CDT) Only the most recent of2 resultswithin the time period is included. WHITE BLOOD COUNT 9.5 4.5 - 11.0 thou/cu mm 07/03/2024 7:30 AM CDT [facility] NRBC 0.0 % 07/03/2024 7:30 AM CDT [facility] ABS NRBC 0.0 thou /cu mm 07/03/2024 7:30 AM CDT [facility] Blood BLOOD SPECIMEN / Unknown Venipuncture / Unknown 07/03/2024 6:55 AM CDT 07/03/2024 7:03 AM CDT Yadira Mcclain MD [facility]Y [facility] [address] [place] [address], [place] * SCAN-CARDIAC STRIP (07/03/2024 2:09 AM CDT) Scanner OTHER * POTASSIUM (07/02/2024 4:21 PM CDT) Only the most recent of4 resultswithin the time period is included. POTASSIUM 4.1 3.5 - 5.1 mmol/L 07/02/2024 5:39 PM CDT [facility] Blood BLOOD SPECIMEN / Unknown Butterfly / Unknown 07/02/2024 4:21 PM CDT 07/02/2024 4:34 PM CDT Noah Nunez MD CHEMISTRY Performing Organization Address City/[facility]/ZIP Co de Phone Number [facility] [address] [place] [address], * PLATELET COUNT (07/02/2024 7:20 AM CDT) PLATELET COUNT 205 140 - 440 thou/cu mm 07/02/2024 7:36 AM CDT [facility] MPV 10.1 6.5 - 11.0 fL 07/02/2024 7:36 AM CDT [facility] Blood BLOOD SPECIMEN / Unknown Venipuncture / Unknown 07/02/2024 7:20 AM CDT 07/02/2024 7:30 AM CDT Narrative [facility] - 07/02/2024 7:36 AM CDT With am labs while on heparin or LMWH per hospital policy Andrsé Adames DO HEMATOLOGY [facility] [address] [place] [address], * Magnesium AM (07/02/2024 7:20 AM CDT) MAGNESIUM 2.3 1.6 - 2.4 mg/dL 07/02/2024 8:02 AM CDT [facility] Blood BLOOD SPECIMEN / Unknown Venipuncture / Unknown 07/02/2024 7:20 AM CDT 07/02/2024 7:30 AM CDT Andrésmadeline Jaureguitim DÍAZ CHEMISTRY [facility] [address] [place] [address], * SCAN-CARDIAC STRIP (07/02/2024 12:32 AM CDT) Scanner OTHER * SCAN-CARDIAC STRIP (07/01/2024 9:10 AM CDT) [...] Narrative 07/01/2024 3:16 AM CDT For Patients: As a result of the Cures Act, medical imaging exams and procedure reports are released immediately into your electronic medical record. You may view this report before your referring provider. If you have questions, please contact your health [...] ISTAT W SIMON (07/01/2024 2:07 AM CDT) Pathologist [facility] LACTATE VENOUS SCREEN ISTAT <1.8 <=2.0 07/01/2024 2:10 AM CDT [facility] LACTATE SCREEN VENOUS POCT 1.5 <=2.0 07/01/2024 2:10 AM CDT [facility] Blood BLOOD SPECIMEN / Unknown 07/01/2024 2:07 AM CDT 07/01/2024 2:10 AM CDT Ada PATTON [facility] [address] [place] [address], [place] * XR ANKLE 3 VIEWS RIGHT (07/01/2024 2:04 AM CDT) Anatomical Region Laterality Modality ANKLES, ANKLE R Digital Radiogra phy 07/01/2024 2:13 AM CDT Impressions 07/01/2024 2:13 AM CDT Soft tissue swelling without evidence of acute osseous abnormality. Dictated by Marquez Hall MD @ 07/01/2024 2:13:11 AM (Electronically Signed) Narrative 07/01/2024 2:13 AM CDT For Patients: As a result of the Cures Act, medical imaging exams and procedure reports are released immediately into your electronic medical record. You may view this report before your referring provider. If you have questions, please contact your health [...] 07/01/2024 2:08 AM CDT [facility] [address] [place] [address], * (ABNORMAL) SEDIMENTATION RATE (07/01/2024 12:40 AM CDT) SEDIMENTATION RATE 81(H) <20 mm/hr 2023 1:00 AM CDT [facility] Blood BLOOD SPECIMEN / Unknown Venipuncture / Unknown 07/01/2024 12:40 AM CDT 07/01/2024 12:46 AM CDT Ada PATTON HEMATOLOGY Performing Organization Address City/[facility]/ZIP Co de Phone Number [facility] [address] [place] [address], * (ABNORMAL) C-REACTIVE PROTEIN (07/01/2024 12:40 AM CDT) C-REACTIVE PROTEIN 0.9(H) <0.5 mg/dL 07/01/2024 1:36 AM CDT [facility] Blood BLOOD SPECIMEN / Unknown Venipuncture / Unknown 07/01/2024 12:40 AM CDT 07/01/2024 12:46 AM CDT Ada PATTON CHEMISTRY Performing Organization Address City/[facility] Co de Phone Number [facility] [address] * Zio XT (06/20/2024 12:00 AM CDT) Mic Baldwin MD CARDIAC SERVICES ORD * Lipid Panel - In AM (08/13/2023 6:54 AM GEOGRAPHIC AREA INTELLIGENCE OFFICER) CHOLESTEROL,TOTAL 127 100 - 199 mg/dL 08/13/2023 8:30 AM GEOGRAPHIC AREA INTELLIGENCE OFFICER [facility] Comment: Cholesterol, Total Reference Ranges Desirable <200 mg/dL Borderline 200-239 mg/dL High >=240 mg/dL TRIGLYCERIDES 126 <150 mg/dL 08/13/2023 8:30 AM GEOGRAPHIC AREA INTELLIGENCE OFFICER [facility] HDL CHOLESTEROL 47 >40 mg/dL 8:30 AM GEOGRAPHIC AREA INTELLIGENCE OFFICER [facility] NON-HDL CHOLESTEROL 80 <145 mg/dl 08/13/2023 8:30 AM GEOGRAPHIC AREA INTELLIGENCE OFFICER [facility] CHOL/HDL RATIO 2.70 <4.50 08/13/2023 8:30 AM GEOGRAPHIC AREA INTELLIGENCE OFFICER [facility] LDL CHOLESTEROL 55 <=130 mg/dL 08/13/2023 8:30 AM GEOGRAPHIC AREA INTELLIGENCE OFFICER [facility] VLDL CHOLESTEROL 25 <=30 mg/dL 08/13/2023 8:30 AM GEOGRAPHIC AREA INTELLIGENCE OFFICER [facility] PROVIDER ORDERED STATUS RANDOM 08/13/2023 8:30 AM GEOGRAPHIC AREA INTELLIGENCE OFFICER [facility] Blood BLOOD SPECIMEN / Unknown Venipuncture / Unknown 08/13/2023 6:54 AM GEOGRAPHIC AREA INTELLIGENCE OFFICER 08/13/2023 7:28 AM GEOGRAPHIC AREA INTELLIGENCE OFFICER Candido Perdomo MD CHEMISTRY [facility] [address] [place] [address], * OCCULT BLOOD IFOBT STOOL (03/06/2019 7:41 AM CDT) STOOL BLOOD ,IFOBT Negative Negative 03/08/2019 11:30 AM CDT [facility] Stool STOOL SPECIMEN / Unknown Non-Blood / Unknown 03/06/2019 7:41 AM CDT 03/07/2019 7:42 AM CDT Mic Thompson MD LABORATORY [facility] [address] [place] [address], * Patient Source ANTI HCV (03/02/2018 10:45 AM CDT) HEPATITIS C ANTIBODY Non-React naina Non-React naina 03/02/2018 11:43 AM CDT [facility] Comment:Antibodies to HCV no t detected; does not exclude the possibility of exposure to HCV. Blood BLOOD SPECIMEN / Unknown Non-Lab Venipuncture / Unknown 03/02/2018 10:45 AM CDT 03/02/2018 10:56 AM CDT Arnie Montgomery MD SEND OUTS [facility] [address] [place] [address], from Last 3 Months or Most Recently Relevant to Health Maintenance Advance Directives * Full Code (Latest Code Status on File) Date Activated Date Inactivated Comments 08/18/2024 10:47 PM 08/19/2024 4:42 PM Question Answer Comments Code Status Discussion: Reviewed Preferences * Full Code Date Activated Date Inactivated Comments 07/01/2024 7:35 AM 07/03/2024 3:15 PM Question Answer Comments Code Status Discussion: [...] Comments 08/01/2018 7:45 AM 08/01/2018 1:16 PM Care Teams Licensed Loan Officer Assistant Relationship Specialty Start Date End Date Nuzhat Salinas PA [address] [place] [address] PCP - General Physician Dairy Feed Sales Consultant 09/05/21 [facility] [place] [address] [address] 12/17/21 [facility] [place] [address] [place] [address] 08/18/24
--- OUTSIDE RECORDS SUMMARY | 2024-08-25 01:39 | XMS_ITS | Encounter Summary ---
Demographics Address [address] [place] [address] Mobile Phone Email Address Preferred Language en Marital Status Pentecostalism Affiliation Unknown Race White Ethnic Group Not or Lati no Author Organization [facility] Address [address] [place] [address] Care Team Providers Care Rubber Stamp Dies Inspector Name Role Phone Nuzhat Salinas PA-C Primary Care Provider [phone] Encounter Details Date Type Department Care Team (Late st Contact Info) Description 07/06/2024 Office Communication [facility] [address] [place] [address] Rachel Clifford [address] [place] [address] Social History Tobacco Use Types [...] Telephone Encounter - Adalberto Carbajal MD - 07/11/2024 8:40 AM CDT Labs completed end of June, will not do repeat labs but decide at f/u if we need further labs.Thanks. -Roberto Carbajal MD * Telephone Encounter - Fayose, SaraDenyJuly - 07/06/2024 3:28 PM CDT Patient RTC with you 08/14. Please order PVL if needed. documented in this encounter Plan of Treatment Upcoming Encounters Date Type Department Care Team (Late st Contact Info) Description 09/18/2024 Orders Only [facility] [place] [address] [address] Adalberto Carbajal MD [address] [place] [phone] Stage 3b chronic kidney disease (HCC) 12/11/2024 1:30 PM CDT Office Visit [facility] [place] [address] Adalberto Carbajal MD [address] [place] [phone] documented as of this encounter Visit Diagnoses Not on filedocumented in this encounter Care Teams Rubber Stamp Dies Inspector Relationship Specialty Start Date End Date Nuzhat Salinas PA-C [address] [place] [address] PCP - General Physician Picker Machine Operator 01/15/22 documented as of this encounter
--- OUTSIDE RECORDS SUMMARY | 2024-08-25 01:39 | XMS_ITS | Encounter Summary ---
Demographics Address [address] [place] [address] Mobile Phone Email Address Preferred Language en Marital Status Sikh Affiliation Unknown Race White Ethnic Group Not or Lati no Author Organization [facility] Address [address] [place] [address] Care Team Providers Care Deli Department Manager Name Role Phone Nuzhat Salinas PA-C Primary Care Provider [phone] Encounter Details Date Type Department Care Team (Late st Contact Info) Description 07/05/2024 Telephone [facility] [place] [address] [place] [address] Sobeida Escobar, RN [address] [place] [address] Social History Tobacco Use Types [...] Telephone Encounter - Sobeida Escobar RN - 07/05/2024 1:00 PM CDT Pt states he was told to take potassium gluconate when he was discharged from the hospital. Reviewed discharge summary and it does not mention taking potassium. K levels were normal. Recommended thathe follow up with his PCP as advised by the hospital. They can check lytes to determine if supplement is needed. He voiced understanding. Per To, he has an appt on 07/06. documented in this encounter Plan of Treatment Upcoming Encounters Date Type Department Care Team (Late st Contact Info) Description 09/18/2024 Orders Only [facility] [place] [address] Adalberto Carbajal MD [address] [place] [phone] Stage 3b chronic kidney disease (HCC) 12/11/2024 1:30 PM CDT Office Visit [facility] [place] [address] [address] Adalberto Carbajal MD [address] [place] [phone] documented as of this encounter Visit Diagnoses Not on filedocumented in this encounter Care Teams Deli Department Manager Relationship Specialty Start Date End Date Nuzhat Salinas PA-C [address] [place] [address] PCP - General Physician Submarine Diver 01/15/22 documented as of this encounter
--- OUTSIDE RECORDS SUMMARY | 2024-08-25 01:39 | XMS_ITS | Clinical Summary ---
Demographics Address [address] [place] [address] Mobile Phone Email Address Preferred Language en Marital Status Oriental Orthodox Affiliation Unknown Race White Ethnic Group Not or Lati no Author Organization [facility] [place] [place] Address [address] [place] [address] Phone Care Team Providers Care Otr Driver Name Role Phone Nuzhat SalinasC Primary Care Provider [phone] Allergies Active Allergy Reactions Criticality Noted Date [...] Rash Low 03/15/2024 Valsartan Swelling 09/23/2023 Medications aspirin (ST MARGARET) 81 MG EC tablet Take 81 mg by mouth in the morning. 014 Active carvedilol (COREG) 3.125 MG tablet Take 3.125 mg by mouth in the morning and 3.125 mg in the evening. 022 Active cholecalcifero l (VITAMIN D-3 SUPER STRENGTH) 50 MCG (2000 UT) tablet Take one tablet every 3rd day. Active clopidogrel (PLAVIX) 75 MG tablet Take 75 mg by mouth 1 (one) time each day Active Ciclopirox 8 % kit Apply topically to affected area(s) at bedtime. Active Jardiance 10 MG tablet Take by [...] UNITS 3 TO 4 TIMES PER DAY Active isosorbide mononitrate (IMDUR) 30 MG 24 hr tablet Take 30 mg by mouth in the morning. Active Naftifine HCl 2 % cream Apply topically to affected area(s) once daily. Active nitroglycerin (NITROSTAT) 0.4 MG SL tablet 1 TAB UNDER TONGUE EVERY 5 MIN IF NEEDED FOR CHEST PAIN. CALL MD IF USING MORE THAN 24/30 DAYS Active Xtampza ER 9 MG capsule extended-relea se 12 hour TAKE 1 CAPSULE BY MOUTH EVERY 12 HOURS FOR CHRONIC PAIN Active rosuvastatin (CRESTOR) 40 MG tablet Take 40 mg by mouth in the morning. Active Polyethylene Glycol 400 0.25 % solution Place into the eye(s) each time if needed (dry eye). Active ZINC GLUCONATE PO Take one tablet every 3rd day. Active oxyCODONE (ROXICODONE) 5 MG immediate release tablet TAKE 1 TABLET THREE TIMES DAILY NEEDED FOR CHRONIC PAIN MAX 3/DAY Active spironolactone (Aldactone) 25 MG tablet Take 1 tablet (25 mg total) by mouth 1 (one) time each day 90 tablet 3 2024 Active torsemide 40 MG tabletIndicati ons:Stage 3b chronic kidney disease (HCC),Edema Take 40 mg by mouth in the morning and 40 mg in the evening. 180 tablet 3 024 2024 Active torsemide (DEMADEX) 20 MG tabletIndicati ons:Stage 3b chronic kidney disease (HCC),Edema TAKE 2 TABLETS BY MOUTH IN THE MORNING AND 1 TABLET IN THE AFTERNOON 270 tablet 024 2023 Discontinued(R eorder (does not appear on AVS)) pregabalin (LYRICA) 25 MG capsule TAKE 1 CAPSULE BY MOUTH AT BEDTIME X 7-14 DAYS THEN INCREASE TO 2 CAPSULES AT BEDTIME 024 2023 Discontinued(M ed List Maintenance) potassium chloride 10 MEQ CR tablet Take 10 mEq by mouth 1 (one) time each day Do not crush, chew, or split. 2023 Discontinued Active Problems Problem Noted Date Diagnosed Date Morbid obesity 08/14/2024 Multi vessel coronary artery disease 08/14/2024 Overview (08/14/2024): 2018: coronary artery bypass graft Primary coxarthrosis, bilateral 08/14/2024 Hypertensive chronic kidney disease with stage 1 through stage 4 chronic kidney disease, or unspecified chronic kidney disease 08/14/2024 Anemia in chronic kidney disease 08/14/2024 Type 2 diabetes mellitus wit h diabetic chronic kidney disease 08/14/2024 Chronic diastolic congestive heart failure 08/14 Insulin treated type 2 diabetes mellitus 024 Atrial fibrillation 04/03/2024 Open wound of right lower leg 03/02/2024 Hyperlipidemia 08/12/2023 Iron deficiency anemia 01/29/2022 Secondary hyperparathyroidism of renal origin Type 2 diabetes mellitus wit h diabetic peripheral angiopathy without gangrene 01/29/2022 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 01/29/2022 Degeneration of lumbar intervertebral disc 08/09 Lymphedema 04/29/2018 Gastroesophageal reflux disease 04/29/2016 Stage 3b chronic kidney disease 01/13/2016 Chronic pain syndrome 09/18/2015 Resolved Problems Problem Noted Date Diagnosed Date Resolved Date Anemia in chronic kidney disease 01/29/2022 08/14/2024 Encounters Date Type Department Care Team Description 08/18/2024 Telephone [facility] [address] [place] [address] Yanira Paul, RN Shortness of Breath 08/14/2024 1:30 PM ASSISTANT ACCOUNT EXECUTIVE Office Visit [facility], [place] [address] [place] [address] Adalberto Carbajal MD Stage 3b chronic kidney disease (HCC) (Primary [...] Chronic diastolic congestive heart failure (HCC); Edema 07/06/2024 Office Communication [facility] [address] [facility] [address] [place] [address] Rojelio Clifford 07/05/2024 Telephone [facility] [address] [facility] [address] [place] [address] Sobeida Escobar, MARIUM 07/03/2024 Telephone [facility] [address] [facility] [address] [place] [address] Sobeida Escobar, MARIUM 06/30/2024 Office Communication [facility] [address] [place] [address] Adalberto Carbajal MD 06/23/2024 Telephone [facility] [address] [facility] [address] [place] [address] Sobeida Escobar, RN from Last 3 Months Immunizations Name [...] on file Sexual Orientation Not on file Last Filed Vital Signs Vital Sign Reading Time Taken Comments Blood Pressure 134/64 08/14/2024 1:26 PM ASSISTANT ACCOUNT EXECUTIVE Pulse 83 08/14/2024 1:26 PM ASSISTANT ACCOUNT EXECUTIVE Temperature - - Respiratory Rate - - Oxygen Saturation 93% 08/14/2024 1:26 PM ASSISTANT ACCOUNT EXECUTIVE Inhaled Oxygen Concentration - - Weight 143 kg (315 lb) 08/14/2024 1:26 PM ASSISTANT ACCOUNT EXECUTIVE Height 177.8 cm (5' 10) 08/14/2024 1:26 PM ASSISTANT ACCOUNT EXECUTIVE Body Mass Index 45.2 08/14/2024 1:26 PM ASSISTANT ACCOUNT EXECUTIVE Plan of Treatment Upcoming Encounters Date Type Department Care Team (Late st Contact Info) Description 09/18/2024 Orders Only [facility] [place] [address] Adalberto Carbajal MD [address] [place] [phone] Stage 3b chronic kidney disease (HCC) 12/11/2024 1:30 PM CDT Office Visit [facility] [place] [address] Adalberto Carbajal MD [address] [place] [address] Health Maintenance Due Date Last Done Comments [...] pg/mL See order comments Comment: Interpretive Guide Intact PTH Calcium ------- Normal Parathyroid Normal Normal Hypoparathyroidism Low or Low Normal Low Hyperparathyroidism Primary Normal or High High Secondary High Normal or Low Tertiary High High Non-Parathyroid Hypercalcemia Low or Low Normal High Blood (Blood, Venous) 06/29/2024 12:25 PM CDT 06/29/2024 12:26 PM CDT Narrative [facility] - 06/30/2024 1:05 PM CDT PATIENT UNABLE TO VOID; ADVISED TO RETURN FOR COLLECTION. Resulting Agency Comment Performing Organization Information: Site ID: [id number] Name: [employer] [facility] Address: [address] [place] [phone] Director: Aman Acosta us Adalberto Carbajal MD LAB BLOOD ORDERABLES Final Re sult Performing Organization Address City/State/[facility] Co de Phone Number GRAHAM YOUL See order comments [place] [address] * (ABNORMAL) Renal Function Panel (06/29/2024 12:25 PM CDT) Glucose 199(H) 65 - 99 mg/dL See order comments Comment: Fasting reference interval For someone without known [...] PM CDT 06/29/2024 12:26 PM CDT Narrative [facility] - 06/30/2024 1:05 PM CDT PATIENT UNABLE TO VOID; ADVISED TO RETURN FOR COLLECTION. Resulting Agency Comment Performing Organization Information: Site ID: [id number] Name: [facility] Address: [address] [place] [id number] Director: Aman Acosta us Adalberto Carbajal MD LAB BLOOD ORDERABLES Final Re sult Performing Organization Address [facility]/ZIP Co de Phone Number [facility] WDL See order comments [place] [address] from Last 3 Months Insurance * Guarantor: Srinivasa Womack Account Type Relation to Patient Date of Phone Billing Address Personal/Family Self 1955 [address] [place] [address] [facility] MEDICARE Care Teams Otr Driver Relationship Specialty Start Date End Date Nuzhat Salinas PA-C [address] [place] [address] PCP - General Physician [employer] Supervisor 01/15/22
--- OUTSIDE RECORDS SUMMARY | 2024-08-25 01:40 | XMS_ITS | Continuity of Care Document ---
Demographics Address [address] [facility] [address] Home Phone Email Address Preferred Language en Marital Status Islam Affiliation Unknown Race White Ethnic Group Unknown Author Organization [facility] Address [address] [place] [address] Phone Care Team Providers Care Cook Helper Pastry Name Role Phone Kamila Subramanian PT Unavailable Unavailable Allergies, Adverse Reactions, Alerts Substance Reaction Status Criticality latex skin irritation Active No Informati on WARNIN allergy(ies) could not be collected because the type is not supported. Please contact the source practice for further details. Medications Medication Instructions Dosage Effective Dates (start - stop) Status Comments oxycodone-acetamino phen 7.5 mg-325 mg tablet take 1 tablet by oral route two times daily - Active omeprazole 20 mg capsule,delayed release take 1 capsule by oral route 2 times every day 30 minutes to 1 hour before a meal 20 MG - Active aspirin 81 mg chewable tablet chew 1 tablet by oral route every day 81 MG - Active Effient 10 mg tablet take 1 tablet by oral route every day 10 MG - Active Januvia 100 mg tablet take 1 tablet by oral route every day 100 MG - Active Crestor 20 mg tablet take 1 tablet by oral route every day 20 MG - Active hydralazine 50 mg tablet take 1 tablet by oral route 2 times every day with food 50 MG - Active metoprolol succinate ER 100 mg tablet,extended release 24 hr take 1 tablet by oral route every day 100 MG - Active lisinopril 20 mg tablet take 1 tablet by oral route 2 times every day 20 MG - Active gabapentin 100 mg capsule take [...] Diagnoses Date Provider Providers Copied on Encounter SUSAN Marlow, [address], [place], [id number], [place] tel:[phone] [facility] No Information 5 Marilynn Treviño. [address], [place], [place], [id number], [place]. tel:[phone] Referring Provider: Mic Thompson MD, [address] [place], [address]. tel:[phone] [facility], [address], [place], [address], [place] tel:[phone] [facility] [place] No Information Jun- No Information SUSAN Marlow, [address], [place], [place], [id number], [place] tel:[phone] [facility] [place] No Information 5 No Information Referring Provider: Mic Thompson MD, [address] [place], [address]. tel:[phone] New Pt Eval 45 Min SUSAN Marlow, [address], [place], [place], [id number], [place] tel:[phone] [facility] No Information 5 No Information Referring Provider: Mic Thompson MD, [address] [place], [address]. tel:[phone] Family History Family Member Type Diagnosis Age At Onset No Information Payers Payer name Insurance type Covered constitution party ID Authorcatalina vargas(s) [employer] [place] [id number] Social History Type Description Quantity Date Captured [...]
--- OUTSIDE RECORDS SUMMARY | 2024-08-25 01:40 | XMS_ITS | Continuity of Care Document ---
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 - Active torsemide 20 mg tablet take 2 tablet by oral route 2 times every day 40 MG - Active Jardiance 10 mg tablet take 0.5 tablet by oral route every day in the morning 5 MG - Active ISOSORBIDE MONONITRATE (unknown strength) take 1 tablet by oral route 2 times every day given 7 hours apart Not Available - Active CARVEDILOL (unknown strength) take 1 tablet by oral route 2 times every day with food Not Available - Active insulin lispro (U-100) 100 unit/mL subcutaneous pen [...] times every day 20 MG - Active pregabalin 25 mg capsule take 1 capsule by oral route at bedtime x 7-14 days then increase to 2 capsules at bedtime - No Longer Active Xtampza ER 9 mg capsule sprinkle take 1 capsule by oral route every 12 hours for chronic pain - No Longer Active Ok to fill 07/27, start 07/29 oxycodone 5 mg tablet take 1 tablet three times daily as needed for chronic pain max 3/day - No Longer Active May fill today; start 07/29 torsemide 20 mg tablet take 1 tablet by oral route every day 20 MG - No Longer Active Xtampza ER 9 mg capsule sprinkle take 1 capsule by oral route every 12 hours for chronic pain - On Hold 30 day supply oxycodone 5 mg tablet take 1 tablet three times daily as needed for chronic pain max 3/day - On Hold 30 day supply Procedures Procedure Date OFFICE/OUTPATIENT VISIT, EST OFFICE VISIT, EST TELEMEDICINE OFFICE VISIT, EST TELEMEDICINE OFFICE/OUTPATIENT VISIT, EST PT EVAL MOD COMPLEX 30 MIN BILATERAL MAJOR JOINT/BURSA DRAIN/INJ WI TH ULTRASO Synvisc One Synvisc One OFFICE/OUTPATIENT VISIT, EST OFFICE VISIT, EST TELEMEDICINE OFFICE/OUTPATIENT VISIT, EST Drug Urine Toxology With Chromatography Drug test def 8-14 classes OFFICE VISIT, EST TELEMEDICINE 24 OFFICE VISIT, EST TELEMEDICINE OFFICE/OUTPATIENT VISIT, EST Drug test def 8-14 classes Drug Urine Toxology With Chromatography OFFICE VISIT, EST TELEMEDICINE OFFICE VISIT, EST TELEMEDICINE OFFICE VISIT, EST TELEMEDICINE OFFICE/OUTPATIENT VISIT, EST Drug Urine Toxology With [...] Foll-up eval q3mo opiod tx OFFICE VISIT, [facility] TELEMEDICINE Drug Urine Toxology With Chromatography Drug test def 8-14 classes Foll-up eval q3mo opiod tx OFFICE/OUTPATIENT VISIT, EST Foll-up eval q3mo opiod tx OFFICE VISIT, [facility] TELEMEDICINE Drug test def 8-14 classes Drug Urine Toxology With Chromatography Foll-up eval q3mo opiod tx PT-FOCUSED HLTH RISK ASSMT OFFICE/OUTPATIENT VISIT, NEW Advance Directives Directive Yes / No Effective Date File Name No Information Encounters Encounter Description Practice Location Reason(s) For Visit Diagnoses Date Provider Providers Copied on Encounter OFFICE/OUTPAT IENT VISIT, [facility], [address] [place] [address], [id number] , [place] tel:[phone] [facility] Widespread pain (chief complaint) Pressure ulcer of right heel, unspecified stageBilatera l primary osteoarthriti s of hipBilateral primary osteoarthriti s of kneeLong term (current) use of opiate analgesicChro della pain syndromeEncou nter for therapeutic drug level monitoring 4 Ishan Catherine. [address], [address], [place]. tel:[phone] Referring Provider: Tomasz Benjamin, [address] [place], [address]. tel:[phone] OFFICE VISIT, [facility], [address] [place], [place], [id number] , [place] tel:[phone] [facility] left hip pain (chief complaint)l eft knee pain (chief complaint) Pressure ulcer of right heel, unspecified stageBilatera l primary osteoarthriti s of hipBilateral primary osteoarthriti s of kneeLong term (current) use of opiate analgesicChro della pain syndrome [address] Ramon Martinez. [address], [place], [place], [id number], [place]. tel:[phone] Referring Provider: Tomasz Benjamin, [address] [place] [address], [id number]. tel:[phone] OFFICE VISIT, EST TELEMEDICINE [facility], [address] [place] [address], [id number] , [place] [phone] [facility] left knee pain (chief complaint) Pressure ulcer of right heel, unspecified stageBilatera l primary osteoarthriti s of hipBilateral primary osteoarthriti s of kneeLong term (current) use of opiate analgesicChro della pain syndrome Sep-2 0- 4 Ramon Martinez. [address] [facility] [address], [facility] [address], [place], [id number], [place]. tel:[phone] OFFICE/OUTPAT IENT VISIT, [facility], [address] [place] [address], [id number] , [place] [phone] [facility] left knee pain (chief complaint) exterminator (current) use of opiate analgesicChro della pain syndromePress ure ulcer of right heel, unspecified stageBilatera l primary osteoarthriti s of hipBilateral primary osteoarthriti s of knee 4 Ramon Martinez. [address] [facility] [address], [facility] [address], [place], [id number], [place]. tel:[phone] Referring Provider: Tomasz Benjamin, [address] [place] [address], [id number]. tel:[phone] [facility], [address] [place] [address], [id number] , [place] tel:[phone] [facility] B LEs (chief complaint) Bilateral primary osteoarthriti s of knee 4 Nelia Waggoner. [address] [place] [address], [id number], [place]. tel:[phone] Referring Provider: Tomasz Benjamin, [address] [place] [address], [id number]. tel:[phone] [facility], [address] [place] [address], [id number] , [place] tel:[phone] [facility] [place] Bilateral primary osteoarthriti s of knee 4 Mikael Tolbert. [address] [place] [address], [id number], [place]. tel:[phone] Referring Provider: Tomasz Benjamin, [address] [place] [address], [id number]. tel:[phone] OFFICE/OUTPAT IENT VISIT, [facility], [address] [place] [address], [id number] , [place] [phone] [facility] left knee pain (chief complaint) exterminator (current) use of opiate analgesicChro della pain syndromePress ure ulcer of right heel, unspecified stageBilatera l primary osteoarthriti s of hipBilateral primary osteoarthriti s of knee 4 Ramon Martinez. [address] [facility] [address], [facility] [address], [place], [id number], [place]. tel:[phone] OFFICE VISIT, [facility] TELEMEDICINE [facility], [address] [place] [address], [id number] , [place] tel:[phone] [facility] left knee pain (chief complaint)l eft hip pain (chief complaint) Chronic pain syndromePress ure ulcer of right heel, unspecified stageBilatera l primary osteoarthriti s of hipUnilateral primary osteoarthriti s, left kneeLong term (current) use of opiate analgesic 4 Ramon Ashlie. [address] [facility] [address], [facility] [address], [place], [id number], [place]. tel:[phone] Referring Provider: Tomasz Benjamin, [address] [place] [address], [id number]. tel:[phone] OFFICE/OUTPAT IENT VISIT, [facility], [address] [place] [address], [id number] , [place] tel:[phone] [facility] bilateral hip pain (chief complaint) Chronic pain syndromePress ure ulcer of right heel, unspecified stageBilatera l primary osteoarthriti s of hipUnilateral primary osteoarthriti s, left kneeLong term (current) use of opiate analgesicEnco unter for therapeutic drug level monitoring 4 Kaylee Peoples. [address] [facility] [address], [place], [id number], [place]. tel:[phone] Referring Provider: Tomasz Benjamin, [address] [place] [address], [id number]. tel:[phone] OFFICE VISIT, EST TELEMEDICINE [facility], [address] [place] [address], [id number] , [place] tel:[phone] [facility] bilateral hip pain (chief complaint) Chronic pain syndromePress ure ulcer of right heel, unspecified stageBilatera l primary osteoarthriti s of hipUnilateral primary osteoarthriti s, left kneePrimary osteoarthriti s, right shoulderPrima ry osteoarthriti s, left shoulderLong term (current) use of opiate analgesic 4 Kaylee Peoples. [address], [id number], [place]. tel:[phone] Referring Provider: Tomasz Benjamin, [address] [place] [address], [id number]. tel:[phone] OFFICE VISIT, EST TELEMEDICINE [facility], [address] [place] [address], [id number] , [place] tel:[phone] [facility] bilateral hip pain (chief complaint) Chronic pain syndromePress ure ulcer of right heel, unspecified stageBilatera l primary osteoarthriti s of hipUnilateral primary osteoarthriti s, left kneePrimary osteoarthriti s, right shoulderPrima ry osteoarthriti s, left shoulderLong term (current) use of opiate analgesic Dec- 4 Pagemoises Peoples. [address] [facility] [address], [id number], [place]. tel:[phone] Referring Provider: Tomasz Benjamin, [address] [place] [address], [id number]. tel:[phone] OFFICE/OUTPAT IENT VISIT, [facility], [address] [place] [address], [id number] , tel:[phone] [facility] bilateral hip pain (chief complaint) Chronic pain syndromePress ure ulcer of right heel, unspecified stageBilatera l primary osteoarthriti s of hipUnilateral primary osteoarthriti s, left kneePrimary osteoarthriti s, right shoulderPrima ry osteoarthriti s, left shoulderLong term (current) use of opiate analgesicEnco unter for therapeutic drug level monitoring 4 Kaylee Peoples. [address] [place] [address], [id number], [place]. tel:[phone] Referring Provider: Tomasz Benjamin, [address] [place] [address], [id number]. tel:[phone] OFFICE VISIT, [facility], [address] [place] [address], [id number] , [place] tel:[phone] [facility] bilateral hip pain (chief complaint) Chronic pain syndromePress ure ulcer of right heel, unspecified stageBilatera l primary osteoarthriti s of hipUnilateral primary osteoarthriti s, left kneePrimary osteoarthriti s, right shoulderPrima ry osteoarthriti s, left shoulderLong term (current) use of opiate analgesic 4 Kaylee Peoples. [address] [place] [address], [id number], [place]. tel:[phone] OFFICE VISIT, [facility] TELEMEDICINE [facility], [address] [place] [address], [id number] , [place] tel:[phone] [facility] hip pain (chief complaint) Chronic pain syndromePress ure ulcer of right heel, unspecified stageBilatera l primary osteoarthriti s of hipUnilateral primary osteoarthriti s, left kneePrimary osteoarthriti s, right shoulderPrima ry osteoarthriti s, left shoulderLong term (current) use of opiate analgesic Sep- 3 Kaylee Peoples. [address] [place] [address] [address], [place], [id number], [place]. tel:[phone] OFFICE VISIT, [facility] TELEMEDICINE [facility], [address] [place] [address], [id number] , [place] [phone] [facility] Hip Pain (chief complaint) Chronic pain syndromePress ure ulcer of right heel, unspecified stageBilatera l primary osteoarthriti s of hipUnilateral primary osteoarthriti s, left kneePrimary osteoarthriti s, right shoulderPrima ry osteoarthriti s, left shoulderLong term (current) use of opiate analgesic Dec-0 3 Kaylee Peoples. [address] [place] [address], [id number], [place]. tel:[phone] OFFICE/OUTPAT IENT VISIT, [facility], [address] [place] [address], [id number] , [place] [phone] [facility] bilateral hip pain (chief complaint) Chronic pain syndromePress ure ulcer of right heel, unspecified stageBilatera l primary osteoarthriti s of hipUnilateral primary osteoarthriti s, left kneePrimary osteoarthriti s, right shoulderPrima ry osteoarthriti s, left shoulderLong term (current) use of opiate analgesicEnco unter for therapeutic drug level monitoring 3 Kaylee Peoples. [address] [place] [address], [id number], [place]. tel:[phone] Referring Provider: [facility] [address] [place] [address], [address]. tel:[phone] [facility], [address] [place] [address], [id number] , [place] tel:[phone] [facility] No Information 3 Kaylee Peoples. [address] [place] [address] [facility] [address], [place], [id number], [place]. tel:[phone] Referring Provider: [facility] [address] [place] [address], [address]. tel:[phone] [facility], [address] [place] [address], [id number] , [place] tel:[phone] [facility] Bilateral primary osteoarthriti s of hip Oct-2 - 3 Mikael Tolbert. [address] [place], [place], [id number], [place]. tel:[phone] Referring Provider: Tomasz Youssef, [address] [place] [address], [id number]. tel:[phone] OFFICE VISIT, EST TELEMEDICINE [facility], [address] [place] [address], [id number] , [place] tel:[phone] [facility] bilateral hip pain (chief complaint) Chronic pain syndromePress ure ulcer of right heel, unspecified stageBilatera l primary osteoarthriti s of hipUnilateral primary osteoarthriti s, left kneePrimary osteoarthriti s, right shoulderPrima ry osteoarthriti s, left shoulderLong term (current) use of opiate analgesic Oct-0 - 3 Kaylee Peoples. [address] [place] [address] [address], [place], [place], [id number], [place]. [phone] OFFICE VISIT, EST TELEMEDICINE [facility], [address] [place] [address], [id number] , [place] tel:[phone] [facility] bilateral hip pain (chief complaint) Chronic pain syndromePress ure ulcer of right heel, unspecified stageBilatera l primary osteoarthriti s of hipUnilateral primary osteoarthriti s, left kneePrimary osteoarthriti s, right shoulderPrima ry osteoarthriti s, left shoulderLong term (current) use of opiate analgesic Sep-0 3 Kaylee Peoples. [address] [place] [address] [address], [place], [place], [id number], [place]. tel:[phone] [facility], [address] [place] [address], [id number] , [place] tel:[phone] [facility] [place] No Information Aug-0 3 Kaylee Peoples. [address] [place] [address], [id number], [place]. tel:[phone] Referring Provider: To Whyte [address] [place], [address]. tel:[phone] OFFICE/OUTPAT IENT VISIT, [facility], [address] [place] [address], [id number] , [place] tel:[phone] [facility] bilateral hip pain (chief complaint) Chronic pain syndromePress ure ulcer of right heel, unspecified stageBilatera l primary osteoarthriti s of hipUnilateral primary osteoarthriti s, left kneePrimary osteoarthriti s, right shoulderPrima ry osteoarthriti s, left shoulderLong term (current) use of opiate analgesicEnco unter for therapeutic drug level monitoring 3 Kaylee Peoples. [address] [place] [address], [id number], [place]. tel:[phone] Referring Provider: To Whyte [address] [place], [address]. tel:[phone] [facility], [address] [place] [address], [id number] , [place] tel:[phone] [facility] Bilateral primary osteoarthriti s of hip 3 Rushdiya Nessw. [address] [place] [address], [id number], [place]. tel:[phone] Referring Provider: To Whyte [address] [place] [address], [address]. tel:[phone] OFFICE VISIT, EST TELEMEDICINE [facility], [address] [place] [address], [id number] , [place] tel:[phone] [facility] bilateral hip pain (chief complaint) Chronic pain syndromePress ure ulcer of right heel, unspecified stageBilatera l primary osteoarthriti s of hipUnilateral primary osteoarthriti s, left kneePrimary osteoarthriti s, right shoulderPrima ry osteoarthriti s, left shoulderLong term (current) use of opiate analgesic Apr-0 3 Page [place]. [facility]5 [facility] [address], [place], [id number], [place]. tel:[phone] Referring Provider: Tomasz Benjamin, [address] [place], [address]. tel:[phone] OFFICE VISIT, [facility] TELEMEDICINE [facility], [address] [place] [address], [id number] , [place] tel:[phone] [facility] bilateral hip pain (chief complaint) Chronic pain syndromePress ure ulcer of right heel, unspecified stageBilatera l primary osteoarthriti s of hipUnilateral primary osteoarthriti s, left kneePrimary osteoarthriti s, right shoulderPrima ry osteoarthriti s, left shoulderLong term (current) use of opiate analgesic Sony-0 3 Kaylee Peoples. [address] [place] [address], [id number], [place]. tel:[phone] OFFICE/OUTPAT IENT VISIT, [facility], [address] [place] [address], [id number] , [place] tel:[phone] [facility] bilateral hip pain (chief complaint) Chronic pain syndromePress ure ulcer of right heel, unspecified stageBilatera l primary osteoarthriti s of hipUnilateral primary osteoarthriti s, left kneePrimary osteoarthriti s, right shoulderPrima ry osteoarthriti s, left shoulderLong term (current) use of opiate analgesic February-0 3 Kaylee Peoples. [address] [place] [address], [id number], [place]. tel:[phone] Referring Provider: To Whyte [address], [place], [address]. tel:[phone] [facility], [address] [place] [address], [id number] , [place] tel:[phone] [facility] No Information 0 3 Kaylee Peoples. [address] [place] [address] [facility] [address], [place], [id number], [place]. tel:[phone] Referring Provider: To Whyte [address], [place], [address]. tel:[phone] [facility], [address] [place] [address], [id number] , [place] tel:[phone] [facility] Unilateral primary osteoarthriti s, left knee Apr- 7202 3 Mikael Tolbert. [address] [place] [address], [id number], [place]. tel:[phone] Referring Provider: To Whyte [address], [place], [address]. tel:[phone] [facility], [address] [place] [address], [id number] , [place] tel:[phone] [facility] Unilateral primary osteoarthriti s, left knee Apr-1 0-202 3 Mikael Tolbert. [address] [place] [address], [id number], [place]. tel:[phone] Referring Provider: To Whyte [address] , [place], [address]. tel:[phone] OFFICE VISIT, EST TELEMEDICINE [facility], [address] [place] [address], [id number] , [place] [phone] [facility] bilateral hip pain (chief complaint) Chronic pain syndromePress ure ulcer of right heel, unspecified stageBilatera l primary osteoarthriti s of hipUnilateral primary osteoarthriti s, left kneePrimary osteoarthriti s, right shoulderPrima ry osteoarthriti s, left shoulderLong term (current) use of opiate analgesic Apr-0 4-202 3 Aleksandr Noel. [address] [facility] [address], [place], [place], [id number], [place]. tel:[phone] OFFICE VISIT, EST TELEMEDICINE [facility], [address] [place] [address], [id number] , [place] [phone] [facility] bilateral hip pain (chief complaint) Chronic pain syndromePress ure ulcer of right heel, unspecified stageBilatera l primary osteoarthriti s of hipUnilateral primary osteoarthriti s, left kneePrimary osteoarthriti s, right shoulderPrima ry osteoarthriti s, left shoulderLong term (current) use of opiate analgesic Dec-0 3 Aleksandr Sadie. [address] [facility] [address], [id number], [place]. tel:[phone] Referring Provider: Tomasz Benjamin, [address] [place] [address], [id number]. [phone] [facility], [address] [place] [address], [id number] , [place] tel:[phone] [facility] No Information 0 3 Pagejovana Peoples. [address], [id number], [place]. [phone] [facility], [address] [place] [address], [id number] , [place] tel:[phone] [facility] No Information 0 3 Aleksandr Sadie. [address], [id number], [place]. tel:[phone] OFFICE/OUTPAT IENT VISIT, EST [facility], [address] [place] [address], [id number] , [place] tel:[phone] [facility] bilateral hip pain (chief complaint) Chronic pain syndromePress ure ulcer of right heel, unspecified stageBilatera l primary osteoarthriti s of hipUnilateral primary osteoarthriti s, left kneePrimary osteoarthriti s, right shoulderPrima ry osteoarthriti s, left shoulderLong term (current) use of opiate analgesicEnco unter for therapeutic drug level monitoring 0 3 Aleksandr Sadie. [address], [id number], [place]. tel:[phone] OFFICE VISIT, EST TELEMEDICINE [facility], [address] [place] [address], [id number] , [place] tel:[phone] [facility] bilateral hip pain (chief complaint) Chronic pain syndromePress ure ulcer of right heel, unspecified stageBilatera l primary osteoarthriti s of hipUnilateral primary osteoarthriti s, left kneePrimary osteoarthriti s, right shoulderPrima ry osteoarthriti s, left shoulderLong term (current) use of opiate analgesic Bj-0 3- 3 Kaylee Peoples. [address] [facility] [address], [id number], [place]. tel:[phone] Referring Provider: Tomasz Benjamin, [address] [place] [address], [id number]. tel:[phone] OFFICE VISIT, EST TELEMEDICINE [facility], [address] [place] [address], [id number] , [place] [phone] [facility] bilateral hip pain (chief complaint) Chronic pain syndromePress ure ulcer of right heel, unspecified stageBilatera l primary osteoarthriti s of hipUnilateral primary osteoarthriti s, left kneePrimary osteoarthriti s, right shoulderPrima ry osteoarthriti s, left shoulderLong term (current) use of opiate analgesic Sep-0 2 Kaylee Peoples. [address] [place] [address], [id number], [place]. tel:[phone] Referring Provider: Tomasz Benjamin, [address] [place] [address], [id number]. tel:[phone] [facility], [address] [place] [address], [id number] , [place] [phone] [facility] No Information 0- 2 Kaylee Peoples. [address] [place] [address], [id number], [place]. tel:[phone] Referring Provider: [address], [place], [address]. tel:[phone] OFFICE/OUTPAT IENT VISIT, EST [facility], [address] [place] [address], [id number] , [place] tel:[phone] [facility] bilateral hip pain (chief complaint) Chronic pain syndromePress ure ulcer of right heel, unspecified stageBilatera l primary osteoarthriti s of hipUnilateral primary osteoarthriti s, left kneePrimary osteoarthriti s, right shoulderPrima ry osteoarthriti s, left shoulderLong term (current) use of opiate analgesicEnco unter for therapeutic drug level monitoring 2 Kaylee Peoples. [address], [place], [place], [id number], [place]. tel:[phone] Referring Provider: [address], [place], [address]. tel:[phone] OFFICE VISIT, [facility], [address] [place] [address], [id number] , [place] tel:[phone] [facility] bilateral hip pain (chief complaint) Chronic pain syndromePress ure ulcer of right heel, unspecified stageBilatera l primary osteoarthriti s of hipUnilateral primary osteoarthriti s, left kneePrimary osteoarthriti s, right shoulderPrima ry osteoarthriti s, left shoulderLong term (current) use of opiate analgesic 2 Félix Edmondson. [address] [place] [address], [id number], [place]. tel:[phone] Referring Provider: Tomasz Benjamin, [address] [place] [address], [id number]. tel:[phone] [facility], [address] [place] [address], [id number] , [place] tel:[phone] [facility] No Information Jun- 2 Pagejovana Peoples. [address] [facility] [address] [facility] [address], [place], [id number], [place]. tel:[phone] Referring Provider: [address], [place], [address]. tel:[phone] OFFICE/OUTPAT IENT VISIT, [facility], [address] [place], [place], [id number] , [place] tel:[phone] [facility] bilateral hip pain (chief complaint) Chronic pain syndromeBilat eral primary osteoarthriti s of hipEncounter for screening for other disorderEncou nter for therapeutic drug level monitoringPri nevin osteoarthriti s, left shoulderPrima ry osteoarthriti s, right shoulderLong term (current) use of opiate analgesicPres sure ulcer of right heel, unspecified stageUnilater al primary osteoarthriti s, left knee Sep-2 2 Kaylee Peoples. [address], [place], [place], [id number], [place]. tel:[phone] Referring Provider: [address], [place], [address]. tel:[phone] Family History Family Member Type Diagnosis Age At Onset No Information Payers Payer name Insurance type Covered alliance party ID Horace vargas(s) [facility] MedicareComplete Replacement 16 [id number] Social History Type Description Quantity Date Captured Comments Alcohol Use Details 1 drink monthly Caffeine Use Details Unknown Tobacco Use Status Current non-smoker Smoking Status Never smoker Non-Smoking Tobacco Use Details : No Details Available : No Details Available Sex Male Chief Complaint And Reason For Visit From encounter dated '08/24/2024 11:00'. Widespread pain (chief complaint). Description: Duration: chronic. Location of the pain is bilateral hip and bilateral knee. Symptom is aggravated by bending, standing, walking and reaching overhead.Relieving factors include Rx Meds. Additional information: Rates hip pain as 8-9/10 and knee pain as 8-9/10 Reason For Referral Reason For Referral No Information Plan Of Treatment Date Type Action Status Goal OARS. Due on due Goal Zoster vaccine (1st). Due on due Goal Update Social History. Due o n due Goal Weight. Due on d ue Goal FIT. Due on due Goal UDT. Due on due Goal Order Annual PT. Due on due Goal PHQ-9. Due on du e Goal Unhealthy drug u se screening. Due on due Goal FIT-DNA. Due on due Goal CT-Colonography. Due on due Goal Height. Due on d ue Goal MARINE ENGINE MACHINIST Paperwork. Due on due Goal Tobacco Use. Due on due Goal Creatinine. Due on due Goal Review Allergy List. Due on due Goal ALT (SGPT). Due on due Goal Lipid panel. Due on due Goal AST (SGOT). Due on due Goal RETAIL SHIFT SUPERVISOR Scanned. Due on due Goal Medication Recon ciliation. Due on due Goal Hepatitis C screening. Due o n due Goal Hepatitis C screening. Due o n due Goal Unhealthy drug u se screening. Due on due Goal Zoster vaccine (1st). Due on due Goal PHQ-9. Due on du e Goal CT-Colonography. Due on due Goal Height. Due on d ue Goal FIT. Due on due Goal Review Allergy List. Due on due Goal Order Annual PT. Due on due Goal RETAIL SHIFT SUPERVISOR Scanned. Due on due Goal UDT. Due on due Goal Update Social History. Due o n due Goal Medication Recon ciliation. Due on due Goal Lipid panel. Due on due Goal OARS. Due on due Goal FIT-DNA. Due on due Goal Weight. Due on d ue Goal Creatinine. Due on due Goal MARINE ENGINE MACHINIST Paperwork. Due on due Goal Tobacco Use. Due on due Goal ALT (SGPT). Due on due Goal AST (SGOT). Due on due Goal Lipid panel. Due on due Goal Unhealthy drug u se screening. Due on due Goal Weight. Due on d ue Goal Review Allergy List. Due on due Goal FIT-DNA. Due on due Goal Medication Recon ciliation. Due on due Goal RETAIL SHIFT SUPERVISOR Scanned. Due on due Goal CT-Colonography. Due on due Goal ALT (SGPT). Due on due Goal FIT. Due on due Goal UDT. Due on due Goal MARINE ENGINE MACHINIST Paperwork. Due on due Goal Update Social History. Due o n due Goal Zoster vaccine (). Due on due Goal Height. Due on d ue Goal Tobacco Use. Due on due Goal AST (SGOT). Due on due Goal Order Annual PT. Due on due Goal Creatinine. Due on due Goal OARS. Due on due Goal Hepatitis C screening. Due o n due Goal PHQ-9. Due on du e Goal Update Social History. Due o n due Goal Unhealthy drug u se screening. Due on due Goal Review Allergy List. Due on due Goal PHQ-9. Due on du e Goal Height. Due on d ue Goal Medication Recon ciliation. Due on due Goal Weight. Due on d ue Goal CT-Colonography. Due on due Goal FIT. Due on due Goal Zoster vaccine (1st). Due on due Goal Hepatitis C screening. Due o n due Goal Lipid panel. Due on due Goal Tobacco Use. Due on due Goal FIT-DNA. Due on due Goal MARINE ENGINE MACHINIST Paperwork. Due on due Goal OARS. Due on due Goal ALT (SGPT). Due on due Goal Creatinine. Due on due Goal RETAIL SHIFT SUPERVISOR Scanned. Due on due Goal Order Annual PT. Due on due Goal AST (SGOT). Due on due Goal UDT. Due on due Goal OARS. Due on due Goal FIT. Due on due Goal PHQ-9. Due on du e Goal FIT-DNA. Due on due Goal ALT (SGPT). Due on due Goal UDT. Due on due Goal Medication Recon ciliation. Due on due Goal Height. Due on d ue Goal Order Annual PT. Due on due Goal CT-Colonography. Due on due Goal AST (SGOT). Due on due Goal Unhealthy drug u se screening. Due on due Goal MARINE ENGINE MACHINIST Paperwork. Due on due Goal Weight. Due on d ue Goal Creatinine. Due on due Goal RETAIL SHIFT SUPERVISOR Scanned. Due on due Goal Zoster vaccine (1st). Due on due Goal Lipid panel. Due on due Goal Review Allergy List. Due on due Goal Hepatitis C screening. Due o n due Goal Tobacco Use. Due on due Goal Update Social History. Due o n due Goal Creatinine. Due on due Goal UDT. Due on due Goal Height. Due on d ue Goal Update Social History. Due o n due Goal Unhealthy drug u se screening. Due on due Goal Weight. Due on d ue Goal Medication Recon ciliation. Due on due Goal FIT-DNA. Due on due Goal Tobacco Use. Due on due Goal Zoster vaccine (1st). Due on due Goal Hepatitis C screening. Due o n due Goal PHQ-9. Due on du e Goal Lipid panel. Due on due Goal ALT (SGPT). Due on due Goal Order Annual PT. Due on due Goal RETAIL SHIFT SUPERVISOR Scanned. Due on due Goal CT-Colonography. Due on due Goal MARINE ENGINE MACHINIST Paperwork. Due on due Goal OARS. Due on due Goal Review Allergy List. Due on due Goal AST (SGOT). Due on due Goal FIT. Due on due Goal MARINE ENGINE MACHINIST Paperwork. Due on due Goal RETAIL SHIFT SUPERVISOR Scanned. Due on due Goal UDT. Due on due Goal Creatinine. Due on due Goal Order Annual PT. Due on due Goal OARS. Due on due Goal AST (SGOT). Due on due Goal Review Allergy List. Due on due Goal ALT (SGPT). Due on due Goal FIT-DNA. Due on due Goal Tobacco Use. Due on due Goal Height. Due on d ue Goal PHQ-9. Due on du e Goal CT-Colonography. Due on due Goal Medication Recon ciliation. Due on due Goal Update Social History. Due o n due Goal Weight. Due on d ue Goal Zoster vaccine (1st). Due on due Goal FIT. Due on due Goal Hepatitis C screening. Due o n due Goal Unhealthy drug u se screening. Due on due Goal Lipid panel. Due on due Goal CT-Colonography. Due on due Goal AST (SGOT). Due on due Goal RETAIL SHIFT SUPERVISOR Scanned. Due on due Goal UDT. Due on due Goal MARINE ENGINE MACHINIST Paperwork. Due on due Goal Review Allergy List. Due on due Goal OARS. Due on due Goal Update Social History. Due o n due Goal Lipid panel. Due on due Goal Tobacco Use. Due on due Goal PHQ-9. Due on du e Goal FIT-DNA. Due on due Goal Unhealthy drug u se screening. Due on due Goal Creatinine. Due on due Goal ALT (SGPT). Due on due Goal Order Annual PT. Due on due Goal Weight. Due on d ue Goal Hepatitis C screening. Due o n due Goal Zoster vaccine (1st). Due on due Goal FIT. Due on due Goal Medication Recon ciliation. Due on due Goal Height. Due on d ue Goal Lipid panel. Due on due Goal OARS. Due on due Goal ALT (SGPT). Due on due Goal Order Annual PT. Due on due Goal Creatinine. Due on due Goal RETAIL SHIFT SUPERVISOR Scanned. Due on due Goal MARINE ENGINE MACHINIST Paperwork. Due on due Goal Zoster vaccine (). Due on due Goal FIT-DNA. Due on due Goal Height. Due on d ue Goal Tobacco Use. Due on due Goal UDT. Due on due Goal CT-Colonography. Due on due Goal Hepatitis C screening. Due o n due Goal PHQ-9. Due on du e Goal Weight. Due on d ue Goal Medication Recon ciliation. Due on due Goal Review Allergy List. Due on due Goal Unhealthy drug u se screening. Due on due Goal Update Social History. Due o n due Goal AST (SGOT). Due on due Goal FIT. Due on due Goal Height. Due on d ue Goal Zoster vaccine (1st). Due on due Goal Creatinine. Due on due Goal MARINE ENGINE MACHINIST Paperwork. Due on due Goal Weight. Due on d ue Goal RETAIL SHIFT SUPERVISOR Scanned. Due on due Goal AST (SGOT). Due on due Goal Hepatitis C screening. Due o n due Goal UDT. Due on due Goal PHQ-9. Due on du e Goal Review Allergy List. Due on due Goal OARS. Due on due Goal ALT (SGPT). Due on due Goal Update Social History. Due o n due Goal FIT-DNA. Due on due Goal Order Annual PT. Due on due Goal Unhealthy drug u se screening. Due on due Goal Lipid panel. Due on due Goal FIT. Due on due Goal CT-Colonography. Due on due Goal Medication Recon ciliation. Due on due Goal Tobacco Use. Due on due Goal AST (SGOT). Due on due Goal Hepatitis C screening. Due o n due Goal Review Allergy List. Due on due Goal ALT (SGPT). Due on due Goal FIT-DNA. Due on due Goal UDT. Due on due Goal RETAIL SHIFT SUPERVISOR Scanned. Due on due Goal Weight. Due on d ue Goal Creatinine. Due on due Goal Order Annual PT. Due on due Goal OARS. Due on due Goal Zoster vaccine (). Due on due Goal Medication Recon ciliation. Due on due Goal CT-Colonography. Due on due Goal MARINE ENGINE MACHINIST Paperwork. Due on due Goal PHQ-9. Due on du e Goal Tobacco Use. Due on due Goal Update Social History. Due o n due Goal Lipid panel. Due on due Goal Height. Due on d ue Goal FIT. Due on due Goal Unhealthy drug u se screening. Due on due Goal Medication Recon ciliation. Due on due Goal RETAIL SHIFT SUPERVISOR Scanned. Due on due Goal PHQ-9. Due on du e Goal FIT. Due on due Goal Tobacco Use. Due on due Goal FIT-DNA. Due on due Goal Review Allergy List. Due on due Goal Unhealthy drug u se screening. Due on due Goal Creatinine. Due on due Goal MARINE ENGINE MACHINIST Paperwork. Due on due Goal Weight. Due on d ue Goal AST (SGOT). Due on due Goal CT-Colonography. Due on due Goal OARS. Due on due Goal Zoster vaccine (1st). Due on due Goal Height. Due on d ue Goal UDT. Due on due Goal ALT (SGPT). Due on due Goal Order Annual PT. Due on due Goal Hepatitis C screening. Due o n due Goal Lipid panel. Due on due Goal Update Social History. Due o n due Goal OARS. Due on due Goal Hepatitis C screening. Due o n due Goal ALT (SGPT). Due on due Goal FIT-DNA. Due on due Goal Tobacco Use. Due on due Goal Height. Due on d ue Goal Review Allergy List. Due on due Goal AST (SGOT). Due on due Goal RETAIL SHIFT SUPERVISOR Scanned. Due on due Goal FIT. Due on due Goal Medication Recon ciliation. Due on due Goal MARINE ENGINE MACHINIST Paperwork. Due on due Goal Lipid panel. Due on due Goal Order Annual PT. Due on due Goal Update Social History. Due o n due Goal UDT. Due on due Goal PHQ-9. Due on du e Goal CT-Colonography. Due on due Goal Creatinine. Due on due Goal Weight. Due on d ue Goal Unhealthy drug u se screening. Due on due Goal Zoster vaccine (1st). Due on due Goal Hepatitis C screening. Due o n due Goal Tobacco Use. Due on due Goal Review Allergy List. Due on due Goal Unhealthy drug u se screening. Due on due Goal OARS. Due on due Goal ALT (SGPT). Due on due Goal Medication Recon ciliation. Due on due Goal Update Social History. Due o n due Goal PHQ-9. Due on du e Goal Lipid panel. Due on due Goal Height. Due on d ue Goal RETAIL SHIFT SUPERVISOR Scanned. Due on due Goal UDT. Due on due Goal FIT-DNA. Due on due Goal FIT. Due on due Goal Order Annual PT. Due on due Goal AST (SGOT). Due on due Goal Creatinine. Due on due Goal Weight. Due on d ue Goal MARINE ENGINE MACHINIST Paperwork. Due on due Goal Zoster vaccine (1st). Due on due Goal CT-Colonography. Due on due Goal Review Allergy List. Due on due Goal Hepatitis C screening. Due o n due Goal Tobacco Use. Due on due Goal Order Annual PT. Due on due Goal AST (SGOT). Due on due Goal UDT. Due on due Goal OARS. Due on due Goal RETAIL SHIFT SUPERVISOR Scanned. Due on due Goal ALT (SGPT). Due on due Goal FIT. Due on due Goal MARINE ENGINE MACHINIST Paperwork. Due on due Goal CT-Colonography. Due on due Goal Creatinine. Due on due Goal FIT-DNA. Due on due Goal PHQ-9. Due on du e Goal Lipid panel. Due on due Goal Update Social History. Due o n due Goal Height. Due on d ue Goal Unhealthy drug u se screening. Due on due Goal Zoster vaccine (1st). Due on due Goal Weight. Due on d ue Goal Medication Recon ciliation. Due on due Goal Zoster vaccine (1st). Due on due Goal Height. Due on d ue Goal UDT. Due on due Goal RETAIL SHIFT SUPERVISOR Scanned. Due on due Goal Creatinine. Due on due Goal Review Allergy List. Due on due Goal Update Social History. Due o n due Goal Weight. Due on d ue Goal AST (SGOT). Due on due Goal PHQ-9. Due on du e Goal Order Annual PT. Due on due Goal Hepatitis C screening. Due o n due Goal MARINE ENGINE MACHINIST Paperwork. Due on due Goal Lipid panel. Due on due Goal Unhealthy drug u se screening. Due on due Goal Tobacco Use. Due on due Goal FIT-DNA. Due on due Goal CT-Colonography. Due on due Goal OARS. Due on due Goal ALT (SGPT). Due on due Goal FIT. Due on due Goal Medication Recon ciliation. Due on due Goal Review Allergy List. Due on due Goal UDT. Due on due Goal Weight. Due on d ue Goal Tobacco Use. Due on due Goal CT-Colonography. Due on due Goal Height. Due on d ue Goal ALT (SGPT). Due on due Goal Zoster vaccine (1st). Due on due Goal AST (SGOT). Due on due Goal FIT-DNA. Due on due Goal FIT. Due on due Goal Hepatitis C screening. Due o n due Goal OARS. Due on due Goal Lipid panel. Due on due Goal Update Social History. Due o n due Goal PHQ-9. Due on du e Goal MARINE ENGINE MACHINIST Paperwork. Due on due Goal RETAIL SHIFT SUPERVISOR Scanned. Due on due Goal Unhealthy drug u se screening. Due on due Goal Order Annual PT. Due on due Goal Medication Recon ciliation. Due on due Goal Creatinine. Due on due Goal UDT. Due on due Goal Order Annual PT. Due on due Goal OARS. Due on due Goal Creatinine. Due on due Goal AST (SGOT). Due on due Goal ALT (SGPT). Due on due Goal MARINE ENGINE MACHINIST Paperwork. Due on due Goal Hepatitis C screening. Due o n due Goal FIT-DNA. Due on due Goal Tobacco Use. Due on due Goal Height. Due on d ue Goal Unhealthy drug u se screening. Due on due Goal Update Social History. Due o n due Goal Zoster vaccine (1st). Due on due Goal Lipid panel. Due on due Goal CT-Colonography. Due on due Goal PHQ-9. Due on du e Goal Weight. Due on d ue Goal Medication Recon ciliation. Due on due Goal Review Allergy List. Due on due Goal FIT. Due on due Goal RETAIL SHIFT SUPERVISOR Scanned. Due on due Goal ALT (SGPT). Due on due Goal Tobacco Use. Due on due Goal Weight. Due on d ue Goal OARS. Due on due Goal CT-Colonography. Due on due Goal MARINE ENGINE MACHINIST Paperwork. Due on due Goal AST (SGOT). Due on due Goal PHQ-9. Due on du e Goal Unhealthy drug u se screening. Due on due Goal Height. Due on d ue Goal Zoster vaccine (1st). Due on due Goal Medication Recon ciliation. Due on due Goal Creatinine. Due on due Goal FIT-DNA. Due on due Goal Hepatitis C screening. Due o n due Goal Order Annual PT. Due on due Goal Update Social History. Due o n due Goal Lipid panel. Due on due Goal FIT. Due on due Goal UDT. Due on due Goal Review Allergy List. Due on due Goal RETAIL SHIFT SUPERVISOR Scanned. Due on due Goal Lipid panel. Due on due Goal UDT. Due on due Goal Tobacco Use. Due on due Goal OARS. Due on due Goal FIT. Due on due Goal Update Social History. Due o n due Goal MARINE ENGINE MACHINIST Paperwork. Due on due Goal Weight. Due on d ue Goal Zoster vaccine (1st). Due on due Goal Creatinine. Due on due Goal CT-Colonography. Due on due Goal AST (SGOT). Due on due Goal RETAIL SHIFT SUPERVISOR Scanned. Due on due Goal Height. Due on d ue Goal FIT-DNA. Due on due Goal ALT (SGPT). Due on due Goal Order Annual PT. Due on due Goal Hepatitis C screening. Due o n due Goal Unhealthy drug u se screening. Due on due Goal PHQ-9. Due on du e Goal Review Allergy List. Due on due Goal Medication Recon ciliation. Due on due Goal ALT (SGPT). Due on due Goal Order Annual PT. Due on due Goal AST (SGOT). Due on due Goal MARINE ENGINE MACHINIST Paperwork. Due on due Goal UDT. Due on due Goal OARS. Due on due Goal Creatinine. Due on due Goal FIT-DNA. Due on due Goal Zoster vaccine (1st). Due on due Goal Unhealthy drug u se screening. Due on due Goal Lipid panel. Due on due Goal FIT. Due on due Goal Review Allergy List. Due on due Goal Medication Recon ciliation. Due on due Goal RETAIL SHIFT SUPERVISOR Scanned. Due on due Goal Hepatitis C screening. Due o n due Goal PHQ-9. Due on du e Goal Height. Due on d ue Goal Update Social History. Due o n due Goal CT-Colonography. Due on due Goal Tobacco Use. Due on due Goal Weight. Due on d ue Goal OARS. Due on due Goal Tobacco Use. Due on due Goal Zoster vaccine (1st). Due on due Goal Weight. Due on d ue Goal Hepatitis C screening. Due o n due Goal CT-Colonography. Due on due Goal Update Social History. Due o n due Goal MARINE ENGINE MACHINIST Paperwork. Due on due Goal Creatinine. Due on due Goal AST (SGOT). Due on due Goal RETAIL SHIFT SUPERVISOR Scanned. Due on due Goal UDT. Due on due Goal FIT. Due on due Goal ALT (SGPT). Due on due Goal Order Annual PT. Due on due Goal Lipid panel. Due on due Goal Height. Due on d ue Goal Unhealthy drug u se screening. Due on due Goal Medication Recon ciliation. Due on due Goal Review Allergy List. Due on due Goal PHQ-9. Due on du e Goal FIT-DNA. Due on due Goal OARS. Due on due Goal Height. Due on d ue Goal FIT-DNA. Due on due Goal Unhealthy drug u se screening. Due on due Goal Creatinine. Due on due Goal MARINE ENGINE MACHINIST Paperwork. Due on due Goal Update Social History. Due o n due Goal UDT. Due on due Goal Zoster vaccine (1st). Due on due Goal FIT. Due on due Goal Hepatitis C screening. Due o n due Goal PHQ-9. Due on du e Goal CT-Colonography. Due on due Goal Lipid panel. Due on due Goal Medication Recon ciliation. Due on due Goal Order Annual PT. Due on due Goal Weight. Due on d ue Goal Review Allergy List. Due on due Goal AST (SGOT). Due on due Goal ALT (SGPT). Due on due Goal RETAIL SHIFT SUPERVISOR Scanned. Due on due Goal Tobacco Use. Due on due Goal CT-Colonography. Due on due Goal Weight. Due on d ue Goal UDT. Due on due Goal Review Allergy List. Due on due Goal OARS. Due on due Goal RETAIL SHIFT SUPERVISOR Scanned. Due on due Goal AST (SGOT). Due on due Goal MARINE ENGINE MACHINIST Paperwork. Due on due Goal FIT-DNA. Due on due Goal Medication Recon ciliation. Due on due Goal Order Annual PT. Due on due Goal PHQ-9. Due on du e Goal ALT (SGPT). Due on due Goal Creatinine. Due on due Goal Update Social History. Due o n due Goal Height. Due on d ue Goal Unhealthy drug u se screening. Due on due Goal Hepatitis C screening. Due o n due Goal FIT. Due on due Goal Lipid panel. Due on due Goal Zoster vaccine (). Due on due Goal Tobacco Use. Due on due Goal MARINE ENGINE MACHINIST Paperwork. Due on due Goal Creatinine. Due on due Goal OARS. Due on due Goal RETAIL SHIFT SUPERVISOR Scanned. Due on due Goal AST (SGOT). Due on due Goal FIT-DNA. Due on due Goal ALT (SGPT). Due on due Goal Weight. Due on d ue Goal Update Social History. Due o n due Goal Tobacco Use. Due on due Goal PHQ-9. Due on du e Goal Unhealthy drug u se screening. Due on due Goal Order Annual PT. Due on due Goal UDT. Due on due Goal Medication Recon ciliation. Due on due Goal Zoster vaccine (). Due on due Goal Lipid panel. Due on due Goal Hepatitis C screening. Due o n due Goal Height. Due on d ue Goal Review Allergy List. Due on due Goal FIT. Due on due Goal CT-Colonography. Due on due Goal Lipid panel. Due on due Goal Weight. Due on d ue Goal Zoster vaccine (1st). Due on due Goal Height. Due on d ue Goal FIT. Due on due Goal Review Allergy List. Due on due Goal Hepatitis C screening. Due o n due Goal PHQ-9. Due on du e Goal Update Social History. Due o n due Goal Unhealthy drug u se screening. Due on due Goal Tobacco Use. Due on due Goal ALT (SGPT). Due on due Goal FIT-DNA. Due on due Goal UDT. Due on due Goal CT-Colonography. Due on due Goal MARINE ENGINE MACHINIST Paperwork. Due on due Goal AST (SGOT). Due on due Goal Creatinine. Due on due Goal OARS. Due on due Goal Order Annual PT. Due on due Goal Medication Recon ciliation. Due on due Goal RETAIL SHIFT SUPERVISOR Scanned. Due on 023 due Goal MARINE ENGINE MACHINIST Paperwork. Due on due Goal RETAIL SHIFT SUPERVISOR Scanned. Due on 023 due Goal PHQ-9. Due on du e Goal Update Social History. Due o n due Goal FIT-DNA. Due on due Goal AST (SGOT). Due on due Goal CT-Colonography. Due on due Goal Medication Recon ciliation. Due on due Goal UDT. Due on due Goal Creatinine. Due on due Goal Tobacco Use. Due on due Goal Weight. Due on d ue Goal OARS. Due on due Goal FIT. Due on due Goal Zoster vaccine (1st). Due on due Goal ALT (SGPT). Due on due Goal Order Annual PT. Due on due Goal Height. Due on d ue Goal Unhealthy drug u se screening. Due on due Goal Hepatitis C screening. Due o n due Goal Review Allergy List. Due on due Goal Lipid panel. Due on due Goal RETAIL SHIFT SUPERVISOR Scanned. Due on due Goal MARINE ENGINE MACHINIST Paperwork. Due on due Goal Lipid panel. Due on due Goal ALT (SGPT). Due on due Goal OARS. Due on due Goal Creatinine. Due on due Goal UDT. Due on due Goal AST (SGOT). Due on due Goal Weight. Due on d ue Goal Medication Recon ciliation. Due on due Goal Order Annual PT. Due on due Goal Unhealthy drug u se screening. Due on due Goal Zoster vaccine (1st). Due on due Goal FIT. Due on due Goal Hepatitis C screening. Due o n due Goal CT-Colonography. Due on due Goal Tobacco Use. Due on due Goal Height. Due on d ue Goal Update Social History. Due o n due Goal PHQ-9. Due on du e Goal Review Allergy List. Due on due Goal FIT-DNA. Due on due Goal UDT. Due on due Goal Order Annual PT. Due on due Goal MARINE ENGINE MACHINIST Paperwork. Due on due Goal Update Social History. Due o n due Goal CT-Colonography. Due on due Goal Hepatitis C screening. Due o n due Goal FIT-DNA. Due on due Goal Height. Due on d ue Goal AST (SGOT). Due on due Goal Tobacco Use. Due on due Goal Unhealthy drug u se screening. Due on due Goal Weight. Due on d ue Goal OARS. Due on due Goal ALT (SGPT). Due on due Goal Medication Recon ciliation. Due on due Goal FIT. Due on due Goal Lipid panel. Due on due Goal Review Allergy List. Due on due Goal RETAIL SHIFT SUPERVISOR Scanned. Due on due Goal Creatinine. Due on due Goal PHQ-9. Due on du e Goal Zoster vaccine (1st). Due on due Goal Unhealthy drug u se screening. Due on due Goal FIT-DNA. Due on due Goal Hepatitis C screening. Due o n due Goal Tobacco Use. Due on due Goal CT-Colonography. Due on due Goal Weight. Due on d ue Goal ALT (SGPT). Due on due Goal Order Annual PT. Due on due Goal Height. Due on d ue Goal Update Social History. Due o n due Goal Zoster vaccine (1st). Due on due Goal PHQ-9. Due on du e Goal Medication Recon ciliation. Due on due Goal Lipid panel. Due on due Goal RETAIL SHIFT SUPERVISOR Scanned. Due on due Goal Review Allergy List. Due on due Goal OARS. Due on due Goal Creatinine. Due on due Goal FIT. Due on due Goal AST (SGOT). Due on due Goal MARINE ENGINE MACHINIST Paperwork. Due on due Goal UDT. Due on due Goal Review Allergy List. Due on due Goal UDT. Due on due Goal Hepatitis C screening. Due o n due Goal Creatinine. Due on due Goal PHQ-9. Due on du e Goal AST (SGOT). Due on due Goal OARS. Due on due Goal Order Annual PT. Due on due Goal Height. Due on d ue Goal Weight. Due on d ue Goal Zoster vaccine (1st). Due on due Goal FIT. Due on due Goal FIT-DNA. Due on due Goal CT-Colonography. Due on due Goal Lipid panel. Due on due Goal MARINE ENGINE MACHINIST Paperwork. Due on due Goal Unhealthy drug u se screening. Due on due Goal Update Social History. Due o n due Goal Medication Recon ciliation. Due on due Goal ALT (SGPT). Due on due Goal RETAIL SHIFT SUPERVISOR Scanned. Due on due Goal Tobacco Use. Due on due Goal ALT (SGPT). Due on due Goal UDT. Due on due Goal Creatinine. Due on due Goal MARINE ENGINE MACHINIST Paperwork. Due on due Goal RETAIL SHIFT SUPERVISOR Scanned. Due on due Goal AST (SGOT). Due on due Goal Order Annual PT. Due on due Goal OARS. Due on due Goal Review Allergy List. Due on due Goal Hepatitis C screening. Due o n due Goal Unhealthy drug u se screening. Due on due Goal FIT. Due on due Goal PHQ-9. Due on du e Goal Medication Recon ciliation. Due on due Goal Tobacco Use. Due on due Goal FIT-DNA. Due on due Goal Height. Due on d ue Goal CT-Colonography. Due on due Goal Lipid panel. Due on due Goal Zoster vaccine (). Due on due Goal Weight. Due on d ue Goal Update Social History. Due o n due Goal Creatinine. Due on due Goal Order Annual PT. Due on due Goal FIT. Due on due Goal Review Allergy List. Due on due Goal Lipid panel. Due on due Goal UDT. Due on due Goal Hepatitis C screening. Due o n due Goal Height. Due on d ue Goal FIT-DNA. Due on due Goal RETAIL SHIFT SUPERVISOR Scanned. Due on due Goal MARINE ENGINE MACHINIST Paperwork. Due on due Goal Weight. Due on d ue Goal OARS. Due on due Goal PHQ-9. Due on du e Goal CT-Colonography. Due on due Goal Tobacco Use. Due on due Goal Unhealthy drug u se screening. Due on due Goal AST (SGOT). Due on due Goal ALT (SGPT). Due on due Goal Zoster vaccine (). Due on due Goal Update Social History. Due o n due Goal Medication Recon ciliation. Due on due Goal Tobacco Use. Due on due Goal FIT. Due on due Goal Update Social History. Due o n due Goal Hepatitis C screening. Due o n due Goal PHQ-9. Due on du e Goal Unhealthy drug u se screening. Due on due Goal Zoster vaccine (). Due on due Goal Height. Due on d ue Goal CT-Colonography. Due on due Goal FIT-DNA. Due on due Goal Review Allergy List. Due on due Goal Lipid panel. Due on due Goal Medication Recon ciliation. Due on due Goal Weight. Due on d ue Appointment Srinivasa Womack #[id number] Bilateral Genicular Nerve Diagnostic RF Work-up BOOKED Future Order: Lab Order URINE DR BAUM CONFIRMATION ([id number]), Collected on: , Sent on: Sent Future Order: Lab Order URINE DR BAUM SCREEN ([id number]), Collected on: , Sent on: Sent Medication Xtampza ER 9 mg capsule sprinkle:take 1 capsule by oral route every 12 hours for chronic pain On Hold Medication oxycodone 5 mg t ablet:take 1 tablet three times daily as needed for chronic pain max 3/day On Hold History Of Present Illness Encounter Date Complaint History Of Prese nt Illness Widespread pain Duration: chroni c. Location of the pain is bilateral hip and bilateral knee. Symptom is aggravated by bending, standing, walking and reaching overhead. Relieving factors include Rx Meds. Additional information: Rates hip pain as 8-9/10 and knee pain as 8-9/10 Comments: This i s my first evaluation of the patient whose care is routinely managed by my colleague, Michelle Navarro CNP. Previous clinic notes and imaging were reviewed.Srinivasa is a 69 y/o male who presents for follow up and medication refill in the setting of chronic widespread pain, most prominent in the BL hips (L>R) and BL knees (L>R). Pain has been fluctuating this month.Ongoing BL knee pain (L>R) has been the most bothersome. Recalls having received BRAND injection in the past with significant benefit but believes efficacy is now declining. Interested in discussing more about the Genicular RFW/RFA for better/more durable relief.Reports current medication regimen provides significant pain relief and allows for increased functionality. Continues to utilize Xtampza ER 9mg BID and Oxycodone 5mg TID with significant benefit. Notes he did not start Lyrica due to concerns of it affecting his breathing. Denies OIC or other side effects from current medication regimen. No other concerns today. left hip pain Duration chronic . The problem is worsening. Location of pain is left. left knee pain Duration: chroni c. Severity level is 9. The problem is worsening. Location: left knee. Comments: Srinivasa presents for virtual follow up and medication refill for ongoing bilateral hip pain. States pain has been worsening to his BL knees and left hip since last OV. Recently hospitalized for cellulitis on his foot. Was given IV antibiotics and has been healing well.Left hip replacement remains on hold until his open wounds heal. Follows with wound care routinely. Reports current medication regimen provides 25% pain relief and allows for increased functionality. Presents with a surplus of medications today. Had previously used Lyrica with benefit and with possible nausea, but unsure if was due to his other medications he was on at the time. Willing to retrial. Denies any side effects with current medication. No other concerns today. Comments: Srinivasa presents for virtual follow up and medication refill for ongoing bilateral hip pain. States pain has been worsening to his BL knees and left hip since last OV. Denies any new health concerns or updates.Left hip replacement remains on hold until his open wounds heal. Follows with wound care routinely. Reports current medication regimen provides 25% pain relief and allows for increased functionality. Presents on track today. Denies any side effects with current medication. No other concerns today. left knee pain Duration: chroni c. Severity level is 8. It occurs constantly and is worsening. Location: left knee. Comments: Srinivasa is presenting in clinic today for follow up and medication refill for ongoing bilateral hip pain. States pain has been improving to his BL knees and has had ongoing left hip since last OV. Has had worsening L shoulder pain recently.Left hip replacement still on hold until his open wounds heal. Recent follow up with wound care and wounds have been healing slowly.He is s/p BL knee joint BRAND injections on 05/15/24 and has started to note less throbbing pain. Reports current medication regimen provides 25% pain relief and allows for increased functionality. The patient presents 2 days short with oxycodone and with a small surplus of his Xtampza ER. Intends to get a medication pill minder to keep track of his medication use. Denies any side effects with current medication. No other concerns today. left knee pain Duration: chroni c. Severity level is 7. It occurs constantly. Location: left knee. The pain is aching and sharp. The pain is aggravated by all movements. The pain is relieved by pain/RX meds, changing positions and sitting. Sharmaine Gonzalez Patient is a 69 year old male presenting with complaints of bilateral knee pain that has been on going for many years. He notes a long history of left hip pain, which has led compensation and more pressure on his knees. He notes previous success with injections. He notes a constant soreness and crackling in his knees. Patient notes no associated weakness. He relies on a walker for mobility due to pain. His symptoms are increased with standing and walking. Symptoms are somewhat relieved with injections and pain medications. He has tried multiple different interventions, including physical therapy and continues with many of the previous exercises. He notes that his current level of discomfort limits everything he is able to do each day and is currently limiting his overall quality of life. He would like to decrease his overall discomfort to allow him to perform his daily, functional activities with less limitation and an improved quality of life. left knee pain Duration: chroni c. Severity level is 9. It occurs constantly and is worsening. Location: left knee. Comments: Srinivasa is presenting virtually today for follow up and medication refill for ongoing bilateral hip pain. States pain has been worse to his BL knees and left hip since last OV.Left hip replacement still on hold until his open wounds heal. Today he reports worsening BL knee pain and expresses interest in repeat BL BRAND injections. Previously found relief with a set of 3 left knee BRAND injections on 01/2023 for 6 months. Did not do right last time, but has noticed worsening right knee pain. Pain worse when standing and walking. Previous imaging showed OA. Reports current medication regimen provides 25% pain relief and allows for increased functionality. The patient presents on track with his Oxycodone and with a small surplus of his Xtampza ER. Asks to increase his dose today. Denies any side effects with current medication. No other concerns today. left knee pain Duration: chroni c. Severity level is 8. It occurs constantly and is worsening. Location: left knee. left hip pain Comments: This i s my first evaluation of the patient, routinely followed by Homer Page PA-C.Srinivasa is presenting virtually today for follow up and medication refill for ongoing bilateral hip pain. States pain has been worse since last OV. Notes his left hip pain continues to worsen.He had been following with Dr. Mic Soni and was referred to a provider at [facility] regarding a left hip replacement. He was initially scheduled for a hip replacement 01/2024, but it was canceled as he did not pass his pre-op physical d/t low EF and a small open wound on his right heel (which has healed). Was informed that his insurance was not covered at [facility] so he is now unsure of his next steps.Left knee pain is secondary to hip pain, but is ongoing. Reports current medication regimen provides 50% pain relief and allows for increased functionality. The patient presents on track with his Oxycodone and with a small surplus of his Xtampza ER. Denies any side effects with current medication. No other concerns today. bilateral hip pain Severity leve l is severe. Duration chronic. The problem is worsening. It occurs constantly. Location of pain is bilateral. The client describes the pain as an ache and throbbing. Pertinent negatives include fever. Comments: Srinivasa is presenting in clinic today for follow up and medication refill for ongoing bilateral hip pain. States pain has been worse since last OV. Reported at a level 9/10. Notes his left hip pain continues to worsen week by week.Continues to follow with Mic Soni MD and was scheduled for a hip replacement 01/2024, but it was canceled d/t not being cleared by the anesthesiologist. States his heart EF was too low (reports 35%), but a recent EKG showed he is up to 55-60%. Now awaiting clearance to reschedule and will notify [facility] when he has a date. States he spoke with Dr. Soni and was told to hold off on injections for his knee. Knee pain is secondary to hip pain, but he notes a crackling sensation with any movement.His pressure ulcer on his right heel has almost resolved. States he graduated from wound care. Now has concerns about a new wound on the back of his leg, though it is smaller than a dime and not infected as per his specialist.Of note, he has started on Jardiance. No SE noted. Reports current medication regimen provides adequate pain relief and allows for increased functionality. The patient presents on track with his Oxycodone and with a small surplus of his Xtampza ER. Denies any side effects with current medication. No other concerns today. bilateral hip pain Severity leve l is moderate. Duration chronic. The problem is worsening. It occurs constantly. Location of pain is left knee, left hip. Comments: Srinivasa is presenting virtually today for follow up and medication refill for ongoing bilateral hip pain. States pain has been worse since last OV. Reported at a level 9/10. Notes his left hip pain continues to worsen week by week.Continues to follow with Mic Soni MD and was scheduled for a hip replacement 01/2024, but it was canceled d/t not being cleared by the anesthesiologist. States his heart EF was too low. Plans to increase his exercise in hopes of strengthening his heart and eventually pursuing surgery. Discussed pursuing injections in the interim, he is interested but would like to check with Dr. Soni first. Reports current medication regimen provides 25% pain relief and allows for increased functionality. Presents on track today. Denies any side effects with current medication. No other concerns today. bilateral hip pain Severity leve l is severe. Duration chronic. The problem is worsening. It occurs constantly. Location of pain is bilateral bilateral L>R. Comments: Srinivasa is presenting virtually today for follow up and medication refill for ongoing bilateral hip pain. States pain has been worse since last OV. Reported at a level 10/10. Notes his left hip pain continues to worsen week by week and he is anxious to have his surgery done next month.Continues to follow with Mic Soni MD and is scheduled for surgery 01/2024. He is hopeful to be less dependent on his medications following. Completed his pre-op and is officially cleared to proceed with surgery and notes his A1C is down to 7.9. Reports current medication regimen provides 25% pain relief and allows for increased functionality. Presents 1 tab short with his Oxycodone 5mg today and admits to self-escalation with his increased pain. 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 Denies any side effects with current medication. No other concerns today. Comments: Srinivasa is presenting in clinic today for follow up and medication refill for ongoing bilateral hip pain. States pain has been worse since last OV. Reported at a level 9/10.Continues to follow with Mic Soni MD and is scheduled for surgery 01/2024. 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 Was recommended to avoid cortisone prior to surgery and therefore canceled his repeat hip joint injections. He is also unable to pursue his knee injections which were scheduled for next week as his is having surgery on 11/29. Reports current medication regimen provides 25% pain relief and allows for increased functionality. Denies any side effects with current medication. No other concerns today. bilateral hip pain Severity leve l is moderate. Duration chronic. The problem is worsening. It occurs constantly. Location of pain is bilateral. Pertinent negatives include fever. Comments: Srinivasa is presenting virtually today for follow up and medication refill for ongoing bilateral hip pain. States pain has been worse since last OV. Reported at a level 9/10.Planning to consult with Mic Soni MD when able for a second opinion regarding surgery. 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 His left his injection from 07/26/23 continues to provide good overall relief. Reports current medication regimen provides 25% pain relief and allows for increased functionality. Denies any side effects with current medication. No other concerns today. bilateral hip pain Severity leve l is moderate. Duration chronic. The problem is worsening. It occurs constantly. Location of pain is left. Comments: Srinivasa is presenting virtually today for follow up and medication refill for ongoing bilateral hip pain. States pain has been worse since last OV. Reports he was in the hospital for 3-4 days d/t a mini heart attack. Now managed on [place]. Has a consultation with Mic Soni MD scheduled for the first week on October 2023 to see if he is a surgical candidate, but is unable if he can pursue it d/t his recent cardiac concerns. His care home goal is to complete hip surgery so he will be less dependent on his medications. Reports current medication regimen provides 25% pain relief and allows for increased functionality. Denies any side effects with current medication. No other concerns today. hip pain Severity level i s moderate. Duration chronic. The problem is worsening. It occurs constantly. Hip Pain Duration chronic . Location of pain is bilateral. Comments: Srinivasa is present here today for follow up and medication refill for ongoing bilateral hip pain. States pain has been worse since last OV. Reports he was in the hospital for 3-4 days d/t dizziness, lightheaded. Reports he had a mini-heart attack though notes the Dr.s are not worried. Has an orthepedics appt with Mic Soni MD scheduled for the first week on October. F/u with [facility] on 09/23/2023 with cardiology. Carvedilol was rx'd at the ER. Reports current medication regimen provides 25% pain relief and allows for increased functionality. Denies any side effects with current medication. No other concerns today. Comments: Andres is [...] and changing positions. Pertinent negatives include fever. Oct-03-2023 bilateral hip pain Severity leve l is [...] other concerns today. 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 Location of pain is bilateral. Comments: Andres is a 68 y/o male who presents for virtual follow up and medication refill in the setting of chronic BL hip pain. Pain has been overall stable since [place]. S/p left hip injection on 04/15/23 with [...] other concerns today. 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 The problem is worsening. Location of [...] negatives include fever. 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 Location of pain is bilateral. Pertinent [...] began at 1:50pm and ended at 1:56pm. 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 The problem is fluctuating. It occurs constantly. Location of pain is bilateral. Relieving factors include medications. Pertinent negatives include fever. Comments: Andres is [...] other concerns today. 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 The problem is worsening. It occurs [...] bilateral left knee. Pertinent negatives include fever. bilateral hip pain Severity leve l is moderate. Duration chronic. The problem is showing no change. It occurs constantly. Location of pain is bilateral. Comments: Andres presents for a virtual follow [...] regimen. No other concerns today. Comments: Andres presents for a follow up [...] rest and medications. Pertinent negatives include fever. Comments: Srinivasa is a 67 y/o male who presents in-clinic today for initial consultation in the setting of chronic BL hips (L>R) and L knee pain. He is accompanied by his daughter today who also contributes to his discussion of care. Referred by POOJA Moore from [facility]. Shares the pain gradually began 10 years [...] averages 10/10 this month. Completed PT at [facility] with minimal relief. Have tried cortisone injections [...] Patient is interested in medication management from [facility]. No other concerns today. Functional Status Date Functional Assessmen t No Information Instructions Date Instruction Additional Infor mation No Information Assessments Type Assessment Date assessment Pressure ulcer of right heel, un specified stage impression Presence of pressure ulcer at the back of the R heel, now minimal and almost completely resolved.[Forwarded Hx]Newer wound in the R posterior leg and recent cellulitis of the foot with hospitalization. Both are healing well.Have been following with wound care for 9 years assessment Bilateral primary osteoarthritis of hip impression Ongoing BL hip pain (L>R).[Forwarded Hx]S/p Repeat L Hip Joint injection on 07/26/23 provided >60% pain relief.Half steroid works best for patient as it allows him to avoid hospitalization from hyperglycemia.Tried: L Hip joint injection x1 (>80% benefit) assessment Bilateral primary osteoarthritis of knee impression Ongoing BL knee pain (L>R).[Forwarded Hx]S/p Repeat BL Knee BRAND injection on 05/15/24 provided >50% pain relief and less throbbing pain.Tried: L Knee BRAND injection x3 (80% benefit) and R Knee BRAND injection x1 (>50% benefit) assessment senior care (current) use of opiat e analgesic impression The medication provi jair significant pain relief, does not cause significant side effects, increases the patient's daily activity level, and the patient presents on track with the prescribed medication today.Tried: Gabapentin (hot flashes and panic attacks) and Lyrica (nausea).MME is 45mg/day. Patient has been managing medications appropriately, and is not confused or oversedated during our office visit. MNPMP queried and showed no outside prescriptions. UDT results from 02/24/24 previously reviewed and are consistent with current medication regimen. Appropriate to continue with opioid therapy assessment Chronic pain syndrome impression Srinivasa is a 69 y/o ma le here with chronic widespread pain, most prominent in the BL shoulders, BL hip (L>R), and BL knees (L>R). Initial onset 10 years ago without any inciting event. Hx of double bypass assessment Encounter for therapeutic drug l evel monitoring Mental Status Date Cognitive Assessment Orientation - [place] ed to time, place, person, situation. Patient Care Teams Name Effective Dates (start - stop) Status Members No Information
--- OUTSIDE RECORDS SUMMARY | 2024-08-25 01:40 | XMS_ITS | Continuity of Care Document ---
Author Organization [facility] enter Address [address] [place] [phone] Phone Care Team Providers Care Care Management Assistant Name Role Phone [facility] Unavailable Unava ilable Procedures Procedure Date [id number]/INJECT, JOINT/BURSA Withou t Ultrasound NEEDLE LOCALIZATION BY XRAY [id number]/INJECT, JOINT/BURSA Withou t Ultrasound NEEDLE LOCALIZATION BY XRAY Advance Directives Directive Yes / No Effective Date File Name No Information Encounters Encounter Description Practice Location Reason(s) For Visit Diagnoses Date Provider Providers Copied on Encounter [facility], [address] [place] [address], [id number], tel:[phone] [place] [address] [facility]. [address] [place] [address], [id number], [place]. tel:[phone] Referring Provider: Tomasz Youssef, [address] [place], [address] . tel:[phone] [facility], [address] [place] [address], [id number], tel:[phone] [place] [address] [facility]. [address] [place] [address], [id number], [place]. tel:[phone] Referring Provider: Tomasz Youssef, [address] [place], [address] . tel:[phone] Family History Family Member Type Diagnosis Age At Onset No Information Payers Payer name Insurance type Covered green party ID Authordougiea sam(s) AARP MedicareComplete Replacement [id number] Social History Type Description Quantity Date [...]
--- OUTSIDE RECORDS SUMMARY | 2024-08-25 01:40 | XMS_ITS | Encounter Summary ---
Demographics Address [address] [place] [address] Mobile Phone Email Address Preferred Language en Marital Status Taoism Affiliation Unknown Race White Ethnic Group Not or Lati no Author Organization [facility] Address [address] [place] [address] Care Team Providers Care Tractor Engine Assembler Name Role Phone Nuzhat Salinas PA-C Primary Care Provider [phone] Encounter Details Date Type Department Care Team (Late st Contact Info) Description 06/23/2024 Telephone [facility] [address] [place] [address] Sobeida Escobar, RN [address] [place] [address] Social History Tobacco Use Types [...] Escobar RN - 06/23/2024 11:54 AM CDT Yahir Renal panel, hgb, PTH, urine Alb:Cr Lab [...] Orders Only [facility] [address] [place] [address] Adalberto Carbajal MD [address] [place] [address] Stage 3b chronic kidney disease (HCC) 12/11/2024 1:30 PM CDT Office Visit [facility] [address] [place] [address] Adalberto Carbajal MD [address] [facility] [place] [address] Scheduled Orders Name Type Priority Associated Diagnoses [...] Agency Comment Performing Organization Information: Site ID: Name: [email or web address] Address: [address] [place] [id number] Director: Aman Acosta us Adalberto Carbajal MD LAB BLOOD ORDERABLES Final Re sult [facility] See order comments [place] [address] * (ABNORMAL) Renal Function Panel (06/29/2024 12:25 [...] Agency Comment Performing Organization Information: Site ID: Name: [facility] Address: [address] [place] [id number] Director: Aman Acosta us Adalberto Carbajal MD LAB BLOOD ORDERABLES Final Re sult [facility] See order comments [place] [address] documented in this encounter Visit Diagnoses Diagnosis Stage 3b chronic kidney disease (HCC)- Primary Stage 3b chronic kidney disease (HCC) documented in this encounter Care Teams Tractor Engine Assembler Relationship Specialty Start Date End Date Nuzhat Salinas PA-C [address] [place] [address] PCP - General Physician Dimensional Engineer 01/15/22 documented as of this encounter
--- OUTSIDE RECORDS SUMMARY | 2024-08-25 01:40 | XMS_ITS | Encounter Summary ---
Demographics Address [address] [place] [address] Mobile Phone Email Address Preferred Language en Marital Status Islam Affiliation Unknown Race White Ethnic Group Not or Lati no Author Organization [facility] Address [address] [place] [address] Care Team Providers Care Regional Geodetic Advisor Name Role Phone Nuzhat Salinas PA-C Primary Care Provider [phone] Encounter Details Date Type Department Care Team (Late st Contact Info) Description 07/03/2024 Telephone [facility] [place] [address] [place] [address] Sobeida Escobar, RN [address] [place] [address] Social History Tobacco Use Types [...] Telephone Encounter - Sobeida Escobar RN - 07/03/2024 9:05 AM CDT Pt called to reschedule today's appt d/t being admitted at [facility]. Call transferred to the . documented in this encounter Plan of Treatment Upcoming Encounters Date Type Department Care Team (Late st Contact Info) Description 09/18/2024 Orders Only [facility] [place] [address] Adalberto Carbajal MD [address] [place] [address] Stage 3b chronic kidney disease (HCC) 12/11/2024 1:30 PM CDT Office Visit [facility] [place] [address] Adalberto Carbajal MD [address] [place] [phone] documented as of this encounter Visit Diagnoses Not on filedocumented in this encounter Care Teams Regional Geodetic Advisor Relationship Specialty Start Date End Date Nuzhat Salinas PA-[place] [address] PCP - General Physician Hybrid Car Mechanic 01/15/22 documented as of this encounter
--- OUTSIDE RECORDS SUMMARY | 2024-08-25 01:40 | XMS_ITS | Encounter Summary ---
Demographics Address [address] [place] [address] Mobile Phone Email Address Preferred Language en Marital Status Caodaism Affiliation Unknown Race White Ethnic Group Not or Lati no Author Organization [facility] Address [address] [place] [address] Care Team Providers Care Telegraph Messenger Name Role Phone Nuzhat Salinas PA-C Primary Care Provider [phone] Encounter Details Date Type Department Care Team (Late Contact Info) Description 06/30/2024 Office Communication [facility] [address] [place] [address] Adalberto Carbajal MD [address] [place] [address] Social History Tobacco Use Types [...] Department Care Team (Late Contact Info) Description 09/18/2024 Orders Only [facility] [place] [address] Adalberto Carbajal MD [address] [place] [address] Stage 3b chronic kidney disease (HCC) 12/11/2024 1:30 PM CDT Office Visit [facility] [place] [address] Adalberto Carbajal MD [address] [place] [address] documented as of this encounter Visit Diagnoses Not on filedocumented in this encounter Care Teams Telegraph Messenger Relationship Specialty Start Date End Date Nuzhat Salinas PA-[place] [address] PCP - General Physician Elevator Operator 01/15/22 documented as of this encounter
== END 2024-08-18 16:10 | disposition home or self-care (01) ==
LOC: AMB 08-25 01:37
PROVIDERS: PCP Physician Assistant Medical; Visit Provider Family Medicine
DX: R06.09 Other forms of dyspnea (principal); M79.605 Pain in left leg; M25.552 Pain in left hip
CPT/HCPCS: A0425; A0427